=== PATIENT | female | born 1940 | race Caucasian/White ===

== ENCOUNTER → 2016-12-01 | Outpatient (CLI) | payer MEDICARE ==
[~2016-12-01] MED LIST: DOBUTamine DRIP for NUC MED 500 MG in DEXTROSE/WATER 1 250ML.BAG IV ONE
--- NOTE | 2016-12-01 12:08 | ECHOS ---
DATE OF SERVICE: 12/01/2016 DOBUTAMINE STRESS ECHOCARDIOGRAM INDICATION: Chest pain. BASELINE HEART RATE: 64 BASELINE BLOOD PRESSURE: 124/80 MAXIMUM HEART RATE: 127 MAXIMUM BLOOD PRESSURE: 111/73 85% MPHR: 126 100% MPHR: 155 METs: MAXIMUM STAGE REACHED: TOTAL EXERCISE TIME: Baseline EKG showed sinus rhythm, normal axis, normal intervals. Patient was given intravenous dobutamine over a period of 6 minutes as per protocol. Did not have chest pain or diagnostic ST segment depression. Baseline echo shows normal left ventricular size, wall motion, systolic function. Post dobutamine infusion. There is no hyperdynamic response of all segments of myocardium noted. CONCLUSIONS: 1. Negative stress test by EKG criteria. 2. Negative dobutamine echo. [facility]
== END | disposition home or self-care (01) ==
LOC: RADNMMAIN 09:53
PROVIDERS: ATTEND Internal Medicine
DX: R06.09 Other forms of dyspnea (principal)
CPT/HCPCS: 93017; 93350; J1250

== ENCOUNTER → 2017-01-09 | Outpatient (CLI) | payer MEDICARE ==
[~2017-01-09] MED LIST changes: -DOBUTamine DRIP for NUC MED 500 MG in DEXTROSE/WATER 1 250ML.BAG IV ONE; +SODIUM CHLORIDE 0.9% 250 ML in EMPTY BAG 1 BAG IV PRN; +SODIUM CHLORIDE 0.9% 500 ML in EMPTY BAG 1 BAG IV PRN; +ZOLEDRONIC ACID 5 MG in SODIUM CHLORIDE 0.9% 100 ML IV ONE
[2017-01-09 14:45] VITALS: BP 131/82; PULSE 79; RESP 16; TEMP 97.4
== END | disposition home or self-care (01) ==
LOC: PROCWHC3 14:27
PROVIDERS: ATTEND Internal Medicine
DX: M81.0 Age-related osteoporosis without current pathological fracture (principal)
CPT/HCPCS: 96365; J3489

== ENCOUNTER → 2017-06-12 | Outpatient (CLI) | payer MEDICARE ==
--- NOTE | 2017-06-12 14:03 | US ---
EXAMINATION TYPE: US kidneys/renal and bladder DATE OF EXAM: 06/12/2017 COMPARISON: NONE CLINICAL HISTORY: N13.30 Hydronephrosis, R93.4 Hx hydronephrosis. EXAM MEASUREMENTS: Right Kidney: 11.1 x 5.6 x 4.4 cm Left Kidney: 11.0 x 5.3 x 5.3 x 5.3 cm Right Kidney: mild hydronephrosis Left Kidney: mild hydronephrosis, cyst measuring 1.5 x 1.4 x 1.8cm Bladder: Patients bladder not full per instructions by Dr. Lal Bilateral Jets seen: No No nephrolithiasis is seen. No masses are identified. The urinary bladder is not appropriately dis tended this time. IMPRESSION: 1. Mild bilateral hydronephrosis of uncertain etiology. 2. Simple cyst left kidney.
== END | disposition home or self-care (01) ==
LOC: RADUSWWP 13:28
PROVIDERS: ATTEND Urology
DX: N13.30 Unspecified hydronephrosis (principal); N28.1 Cyst of kidney, acquired
CPT/HCPCS: 76770

== ENCOUNTER → 2017-08-06 | Outpatient (CLI) | payer MEDICARE ==
--- NOTE | 2017-08-08 08:49 | MM ---
Reason for exam: screening (asymptomatic). Last mammogram was performed 1 year and 3 months ago. History: Patient is postmenopausal. Family history of breast cancer in sister, breast cancer in father, and breast cancer in 2 paternal aunts. Physical Findings: A clinical breast exam by your physician is recommended on an annual basis and results should be correlated with mammographic findings. MG 3D Screening Mammo W/Cad Bilateral CC and MLO view(s) were taken. Prior study comparison: May 02, 2016, bilateral MG 3d screening mammo w/cad. March 29, 2015, mammogram, performed at [facility]. There are scattered fibroglandular densities. No significant changes when compared with prior studies. ASSESSMENT: Benign, BI-RAD 2 RECOMMENDATION: Routine screening mammogram of both breasts in 1 year.
== END | disposition home or self-care (01) ==
LOC: RADMAMWWP 13:50
PROVIDERS: ATTEND Internal Medicine
DX: Z12.31 Encounter for screening mammogram for malignant neoplasm of breast (principal)
CPT/HCPCS: 77063; 77067

== ENCOUNTER → 2017-12-28 | Outpatient (CLI) | payer MEDICARE ==
[2017-12-28 17:55] LABS: Blood Urea Nitrogen 19 mg/dL (7-17)
--- NOTE | 2017-12-30 15:33 | CT ---
EXAMINATION TYPE: CT abdomen pelvis w con DATE OF EXAM: 12/28/2017 COMPARISON: None INDICATION: abdominal pain DLP: 758.3 mGycm, Automated exposure control for dose reduction was used. CONTRAST: 100 mL of Isovue 300. Study performed with Oral Contrast TECHNIQUE: Axial images were obtained from above the diaphragm to the pubic rami in the axial plane a t 5 mm thick sections. Reconstructed images are reviewed on the computer in the coronal plane. FINDINGS: Limited CT sections are obtained the lung bases. Some paraseptal emphysematous changes present in th e posterior lung bases. Some streak opacities are at the lung bases may be some streak atelectasis.. CT ABDOMEN: Subcutaneous varicosities are present. Liver: Normal Spleen: Normal Pancreas: Normal Adrenal glands: The adrenal glands are normal. Gallbladder: Poorly visualized may be decompressed. Kidneys: No masses are evident. No hydronephrosis is present. Peripelvic cysts are present. Exophyt ic cyst on the posterior lateral left kidney measures 0 Hounsfield units and 1.7 cm. Delayed images were obtained through the kidneys, which remain unremarkable. Aorta: Vascular calcification is within the aorta. 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 Typical inferior vena cava is not identified. CT PELVIS: Loops of bowel within the abdomen and pelvis are normal. Multiple diverticuli are present through out the colon. No acute diverticulitis is evident. There are loops of bowel lacking oral contrast weaver iting their evaluation. Appendix: Normal as visualized. Urinary bladder: Normal. Genitourinary structures: Uterus appears normal. Adnexal regions are clear. Osseous structures: No suspicious lytic or sclerotic lesions. IMPRESSIONS: 1. Peripelvic cysts. Hydronephrosis is not identified. No hydroureter is evident. 2. Paraseptal emphysematous changes and atelectasis at the lung bases. 3. Diverticulosis without acute diverticulitis.
== END ==
LOC: RADCTMAIN 17:09
PROVIDERS: ATTEND Internal Medicine
DX: N94.89 Other specified conditions associated with female genital organs and menstrual cycle (principal); J43.9 Emphysema, unspecified; J98.11 Atelectasis; K57.30 Diverticulosis of large intestine without perforation or abscess without bleeding
CPT/HCPCS: 82565; 84520; 74177; 36415; Q9967

== ENCOUNTER → 2018-05-07 | Outpatient (CLI) | payer MEDICARE ==
[~2018-05-07] MED LIST changes: +DOBUTamine DRIP for NUC MED 500 MG in DEXTROSE/WATER 1 250ML.BAG IV ONE; -SODIUM CHLORIDE 0.9% 250 ML in EMPTY BAG 1 BAG IV PRN; -SODIUM CHLORIDE 0.9% 500 ML in EMPTY BAG 1 BAG IV PRN; -ZOLEDRONIC ACID 5 MG in SODIUM CHLORIDE 0.9% 100 ML IV ONE
--- NOTE | 2018-05-07 12:12 | ECHOF ---
Referral Reason:R94.31 Abnormal EKG MEASUREMENTS -------- HEIGHT: 137.2 cm WEIGHT: 78.9 kg BP: IVSd: 1.4 cm (0.6 - 1.1) LVIDd: 3.3 cm (3.9 - 5.3) LVPWd: 1.4 cm (0.6 - 1.1) IVSs: 1.6 cm LVIDs: 2.5 cm LVPWs: 1.6 cm LAESV Index (A-L): 36.35 ml/m Ao Diam: 3.1 cm (2.0 - 3.7) AV Cusp: 1.9 cm (1.5 - 2.6) LA Diam: 3.7 cm (2.7 - 3.8) MV EXCURSION: 10.412 mm (> 18.000) MV EF SLOPE: 35 mm/s (70 - 150) EPSS: 0.7 cm MV E Samson: 0.62 m/s MV DecT: 125 ms MV A Samson: 0.80 m/s MV E/A Ratio: 0.78 RAP: 5.00 mmHg RVSP: 16.85 mmHg FINDINGS -------- Sinus rhythm with extra systolic beats. This was a technically good study. The left ventricular size is normal. There is moderate concentric left ventricular hypertrophy. O verall left ventricular systolic function is normal with, an EF between 55 - 60 %. The right ventricle is normal in size and function. LA is moderately dilated 34-39 ml/m2 The right atrium is normal in size. Aortic valve is trileaflet and is mildly thickened. The mitral valve is normal. Mild mitral regurgitation is present. Mild tricuspid regurgitation present. Right ventricular systolic pressure is normal at < 35 mmHg. The right ventricular systolic pressure, as measured by Doppler, is 16.85mmHg. There is no pulmonic regurgitation present. The aortic root size is normal. IVC Not well visulized. There is no pericardial effusion. CONCLUSIONS -------- 1. Sinus rhythm with extra systolic beats. 2. This was a technically good study. 3. The left ventricular size is normal. 4. There is moderate concentric left ventricular hypertrophy. 5. Overall left ventricular systolic function is normal with, an EF between 55 - 60 %. 6. LA is moderately dilated 34-39 ml/m2 7. Aortic valve is trileaflet and is mildly thickened. 8. Mild mitral regurgitation is present. 9. Mild tricuspid regurgitation present. 10. Right ventricular systolic pressure is normal at < 35 mmHg. 11. There is no pulmonic regurgitation present. 12. The aortic root size is normal. 13. IVC Not well visulized. 14. There is no pericardial effusion. BIBLICAL LANGUAGES PROFESSOR: Inessa Gonzalez RDCS
--- NOTE | 2018-05-07 13:16 | ECHOS ---
STRESS ECHOCARDIOGRAM INDICATIONS: Abnormal EKG. BASELINE HEART RATE: 70 BASELINE BLOOD PRESSURE: 102/65 MAXIMUM HEART RATE: 137 MAXIMUM BLOOD PRESSURE: 132/57 85% MPHR: 122 100% MPHR: 144 MAXIMUM STAGE REACHED: I TOTAL EXERCISE TIME: 5:15 CLINICAL INFORMATION: Baseline rhythm is sinus mechanism, rate of 70, normal axis and intervals, poor R-wave progression, probable lead misplacement in V2. Baseline blood pressure 102/65 mmHg. Patient received infusion of dobutamine per protocol. Electrocardiograph monitoring revealed occasional PVCs. There was no evidence of diagnostic ischemic ST deviation. FINDINGS: Baseline echocardiogram revealed normal wall thickening and motion at peak exercise. There was normal wall motion augmentation with no hypokinesis or dyskinesis. CONCLUSION: 1. Nondiagnostic electrocardiograph response to dobutamine infusion. 2. Normal stress echocardiogram with no evidence of stress-induced ischemia. MMODL / IJN: [id number] /
== END | disposition home or self-care (01) ==
LOC: RADNMMAIN 10:02
PROVIDERS: ATTEND Internal Medicine
DX: I08.3 Combined rheumatic disorders of mitral, aortic and tricuspid valves (principal); R94.31 Abnormal electrocardiogram [ECG] [EKG]
CPT/HCPCS: 93306; 93351; J1250

== ENCOUNTER 2019-08-08 | Day surgery (SDC) | payer MEDICARE | END 2019-08-08 09:07 | disposition home or self-care (01) | CPT/HCPCS: 88305; 45380; 43239; J2001; J2704 ==

== ENCOUNTER → 2020-01-12 | Outpatient (CLI) | payer MEDICARE ==
--- NOTE | 2020-01-14 08:38 | MM ---
Reason for exam: screening (asymptomatic). Last mammogram was performed 1 year and 5 months ago. History: Patient is postmenopausal. Family history of breast cancer in sister, breast cancer in father, and breast cancer in 2 paternal aunts. Physical Findings: A clinical breast exam by your physician is recommended on an annual basis and results should be correlated with mammographic findings. MG 3D Screening Mammo W/Cad Bilateral CC and MLO view(s) were taken. Prior study comparison: August 22, 2018, bilateral MG 3d screening mammo w/cad. August 06, 2017, bilateral MG 3d screening mammo w/cad. The breast tissue is heterogeneously dense. This may lower the sensitivity of mammography. There are benign appearing round vascular calcifications bilaterally. No significant changes when compared with prior studies. ASSESSMENT: Benign, BI-RAD 2 RECOMMENDATION: Routine screening mammogram of both breasts in 1 year.
== END | disposition home or self-care (01) ==
LOC: RADMAMWWP 13:19
PROVIDERS: ATTEND Internal Medicine
DX: Z12.31 Encounter for screening mammogram for malignant neoplasm of breast (principal)
CPT/HCPCS: 77063; 77067

== ENCOUNTER → 2020-02-24 | Outpatient (CLI) | payer MEDICARE ==
[2020-02-24 19:31] LABS: African American GFR (CKD) >90 (>60 ml/min/1.73 sqM); Blood Urea Nitrogen 24 mg/dL (7-17); Non-African American GFR(CKD) 84 (>60 ml/min/1.73 sqM)
--- NOTE | 2020-02-24 21:21 | CT ---
EXAMINATION TYPE: CT chest w con DATE OF EXAM: 02/24/2020 COMPARISON: Chest x-ray October 12, 2013 HISTORY: Interstitial lung disease, Pt c/o SOB cough x3 weeks. Hx pulmonary fibrosis, copd CT DLP: 224.40 mGycm. Automated Exposure Control for Dose Reduction was Utilized. TECHNIQUE: CT scan of the thorax is performed following with IV Contrast, patient injected with 100 mL of Isovue 300. FINDINGS: LUNGS: Peripheral reticulation and fibrotic changes is present bilaterally with areas of honeycombing and scattered bulla/blebs. No suspicious noncalcified nodules or masses. No pleural effusion or pneu mothorax. There is 3 mm calcified nodule or granuloma right upper lobe axial image 20. No suspicious focal consolidation. MEDIASTINUM: There is marked cardiomegaly with enlarged right and left pulmonary arteries and moderat e left atrial dilatation along with moderate right ventricular dilatation. There is coronary artery c alcification which is noted marker for underlying coronary artery disease. No pericardial effusion. S omewhat small thyroid gland. There are prominent collateral vessels near diaphragmatic hiatus at leve l of distal esophagus noted. No suspicious greater than 1 cm thoracic lymph nodes. OTHER: Exaggerated thoracic kyphosis with moderate multilevel spurring. Some ossific fusion T10-T11 l evel. There are prominent parapelvic cysts bilaterally confirmed on [address] IMPRESSION: Moderate to advanced chronic pulmonary fibrotic changes bilaterally. No acute pulmonary p rocess. Cardiomegaly with underlying pulmonary artery hypertension.
== END | disposition home or self-care (01) ==
LOC: RADCTMAIN 18:26
PROVIDERS: ATTEND Internal Medicine
DX: I27.21 Secondary pulmonary arterial hypertension (principal); J84.10 Pulmonary fibrosis, unspecified; I51.7 Cardiomegaly; J84.9 Interstitial pulmonary disease, unspecified
CPT/HCPCS: 82565; 84520; 71260; 36415; Q9967

== ENCOUNTER → 2020-03-22 | Outpatient (CLI) | payer MEDICARE ==
--- NOTE | 2020-03-23 10:00 | ECHOF ---
Referral Reason:I51.7 Cardiomegaly MEASUREMENTS -------- HEIGHT: 162.6 cm WEIGHT: 73.9 kg BP: RVIDd: 4.3 cm (< 3.3) IVSd: 1.3 cm (0.6 - 1.1) LVIDd: 3.4 cm (3.9 - 5.3) LVPWd: 1.5 cm (0.6 - 1.1) IVSs: 1.7 cm LVIDs: 2.6 cm LVPWs: 1.7 cm LAESV Index (A-L): 25.52 ml/m Ao Diam: 3.6 cm (2.0 - 3.7) AV Cusp: 2.2 cm (1.5 - 2.6) MV EXCURSION: 14.577 mm (> 18.000) MV EF SLOPE: 47 mm/s (70 - 150) EPSS: 0.8 cm MV E Samson: 0.37 m/s MV DecT: 193 ms MV A Samson: 0.84 m/s MV E/A Ratio: 0.45 RAP: 5.00 mmHg RVSP: 25.01 mmHg FINDINGS -------- This was a technically adequate study. The left ventricular size is normal. There is mild concentric left ventricular hypertrophy. Overa ll left ventricular systolic function is mildly impaired with, an EF between 45 - 50 %. Mitral Dopp ler inflow pattern suggests diastolic filling abnormality 6.46. Possible Inferior Hypokinesis The right ventricle is moderate to severely enlarged. Normal LA size by volume 22+/-6 ml/m2. The right atrial size is normal. Interatrial and interventricular septum intact. The aortic valve is trileaflet and appears structurally normal. There is no evidence of aortic regu rgitation. There is no evidence of aortic stenosis. Mild mitral regurgitation is present. Mild tricuspid regurgitation present. There is no evidence of pulmonary hypertension. The right v entricular systolic pressure, as measured by Doppler, is 25.01mmHg. Trace/mild (physiologic) pulmonic regurgitation. The aortic root size is normal. IVC Not well visulized. There is no pericardial effusion. CONCLUSIONS -------- 1. The left ventricular size is normal. 2. There is mild concentric left ventricular hypertrophy. 3. Overall left ventricular systolic function is mildly impaired with, an EF between 45 - 50 %. 4. Mitral Doppler inflow pattern suggest diastolic filling abnormality 6.46. 5. The right ventricle is moderate to severely enlarged. 6. Mild mitral regurgitation is present. 7. Mild tricuspid regurgitation present. 8. Trace/mild (physiologic) pulmonic regurgitation. JEWEL SUPERVISOR: Joanna Santos RDCS
== END | disposition home or self-care (01) ==
LOC: RADECHMAIN 13:43
PROVIDERS: ATTEND Internal Medicine
DX: I08.1 Rheumatic disorders of both mitral and tricuspid valves (principal)
CPT/HCPCS: 93306

== ENCOUNTER → 2020-06-01 | Outpatient (CLI) | payer MEDICARE ==
[2020-06-01 15:27] LABS: Albumin 4.2 g/dL (3.80-4.90); Albumin/Globulin Ratio 2.21 (1.60-3.17); Bilirubin, Conjugated 0.3 mg/dL (0.20-0.40); Bilirubin,Unconjugated 0.5 mg/dL; Chol/HDL Ratio 2.55; Globulin 1.9 g/dL (1.6-3.3); LDL Cholesterol,Calculated 66.4 mg/dL (0.0-131.0); Total Bilirubin 0.8 mg/dL (0.2-1.2); Total Protein 6.1 g/dL (6.2-8.2); VLDL Calculation 15.6 mg/dL (5.00-40.00)
== END | disposition home or self-care (01) ==
LOC: LABWHC1 10:38
PROVIDERS: ATTEND Internal Medicine Cardiovascular Disease
DX: E78.2 Mixed hyperlipidemia (principal); I10 Essential (primary) hypertension
CPT/HCPCS: 36415; 80061; 80076

== ENCOUNTER → 2021-03-29 | Outpatient (CLI) | payer MEDICARE ==
--- NOTE | 2021-03-31 14:37 | MM ---
Reason for exam: screening (asymptomatic). Last mammogram was performed 1 year and 3 months ago. History: Patient is postmenopausal. Family history of breast cancer in sister, breast cancer in father, and breast cancer in 2 paternal aunts. Physical Findings: A clinical breast exam by your physician is recommended on an annual basis and results should be correlated with mammographic findings. MG 3D Screening Mammo W/Cad Bilateral CC and MLO view(s) were taken. XCCL view(s) were taken of the right breast. Prior study comparison: January 12, 2020, bilateral MG 3d screening mammo w/cad. August 22, 2018, bilateral MG 3d screening mammo w/cad. There are scattered fibroglandular densities. No significant changes when compared with prior studies. ASSESSMENT: Negative, BI-RAD 1 RECOMMENDATION: Routine screening mammogram of both breasts in 1 year.
== END | disposition home or self-care (01) ==
LOC: RADMAMWWP 12:58
PROVIDERS: ATTEND Family Medicine
DX: Z12.31 Encounter for screening mammogram for malignant neoplasm of breast (principal); Z80.3 Family history of malignant neoplasm of breast; Z78.0 Asymptomatic menopausal state
CPT/HCPCS: 77063; 77067

== ENCOUNTER 2021-04-30 12:12 | Emergency (ER) | payer MEDICARE ==
[2021-04-30 14:40] VITALS: RESP 16; TEMP 98.5
[2021-04-30 15:24] LABS: Appearance,Urine Cloudy (Clear); Bacteria,Urine Occasional /hpf; Bilirubin,Urine Negative (Negative); Blood,Urine Large (Negative); Color,Urine Dark Yellow; Glucose,Urine (UA) Negative (Negative); Ketones,Urine Negative (Negative); Leukocyte Esterase,Urine Large (Negative); Mucus,Urine Rare /hpf; Nitrite,Urine Negative (Negative); Protein,Urine 1+ (Negative); RBC,Urine >182 /hpf (0-5); Specific Gravity,Urine 1.018 (1.001-1.035); Urobilinogen,Urine <2.0 mg/dL (<2.0); WBC,Urine >182 /hpf (0-5)
--- NOTE | 2021-04-30 16:58 | ED ---
General Adult HPI - General Chief complaint: Urogenital Stated complaint: blood in urine Time Seen by Provider: 04/30/21 17:00 Source: patient, family, RN notes reviewed, old records reviewed Mode of arrival: wheelchair Limitations: no limitations - History of Present Illness Initial comments: Well-appearing 81-year-old female, alert and oriented 4, presents to the emergency room with dysuria that started last night. She states that she has had frequency, burning and then noticed some blood in the urine this morning. She denies any back pain, fever, nausea or vomiting. She has had a history of urinary tract infections in the past. She also has irritable bowel syndrome with diarrhea. She has a history of COPD, DVT and hypertension. She states that she was told she has diabetes but she is diet-controlled no medications. She is a former smoker. -: days(s) (1) Location: abdomen (Suprapubic) Severity scale (1-10): 4 Quality: burning Consistency: intermittent Improves with: none Worsens with: other (Urination) Associated Symptoms: denies other symptoms Treatments Prior to Arrival: none - Related Data Home Medications Medication Instructions Recorded Confirmed ALPRAZolam [Xanax] 0.25 mg PO HS PRN 10/12/13 08/05/19 Albuterol Sulfate [Ventolin HFA] 1 puff INHALATION QID 10/12/13 08/05/19 Isosorbide Mononitrate ER [Imdur] 30 mg PO DAILY 10/12/13 08/05/19 Levothyroxine Sodium [Synthroid] 75 mcg PO DAILY 10/12/13 08/05/19 hydroCHLOROthiazide [Hydrodiuril] 25 mg PO DAILY 10/12/13 08/05/19 Calcium Carbonate/Vitamin D3 800 mg PO BID 03/15/15 08/05/19 [Calcium 600-Vit D3 400 Tablet] Vitamin B Complex 1 each PO DAILY 03/15/15 08/05/19 Cholecalciferol (Vitamin D3) 2,800 unit PO DAILY 01/09/17 08/05/19 [Vitamin D3] Clopidogrel [Plavix] 75 mg PO DAILY 01/09/17 08/05/19 Clotrimazole [Clotrimazole 1%] 1 applic TOPICAL DAILY PRN 01/09/17 08/05/19 Ketoconazole [Ketoconazole 2%] 1 applic TOPICAL DIRECTED 01/09/17 08/05/19 Diphenoxylate HCl/Atropine 1 tab PO QID PRN 08/05/19 08/05/19 [Lomotil 2.5-0.025 mg Tablet] Fluticasone/Vilanterol [Breo 1 inhalation PO 1600 08/05/19 08/05/19 Ellipta 100-25 Mcg Inhaler] methylPREDNISolone [Medrol Dose 4 mg PO DIRECTED 08/05/19 08/05/19 Pack] Previous Rx's Medication Instructions Recorded Sulfamethox-Tmp 800-160Mg [Bactrim 1 each PO Q12HR 4 Days #8 tab 04/30/21 Ds] Allergies Allergy/AdvReac Type Severity Reaction Status Date / Time erythromycin base Allergy Intermediate Abdominal Verified 04/30/21 14:40 [Erythromycin Base] Pain denosumab [From Prolia] Allergy Rash/Hives Verified 04/30/21 14:40 Review of Systems ROS Statement: Those systems with pertinent positive or pertinent negative responses have been documented in the HPI. ROS Other: All systems not noted in ROS Statement are negative. 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 oophorectomy, right leg varicose vein surg. robbin cataract, exploratory surgery on chest area to remove a "lump", Past Anesthesia/Blood Transfusion Reactions: Family History of Problems w/ Anesthesia Additional Past Anesthesia/Blood Transfusion Reaction / Comment(s): claustrophobia, son had diff breathing during surgery at age 4(will bring paper in) Past Psychological History: Anxiety Smoking Status: Never smoker Past Alcohol Use History: Rare Past Drug Use History: None Reported - Past Family History Father Family Medical History: Deep Vein Thrombosis (DVT) Additional Family Medical History / Comment(s): FROM CORONARY THROMBOSIS Mother Family Medical History: Pneumonia, Rheumatoid Arthritis (RA) Additional Family Medical History / Comment(s): Peptic ulcer disease.PVD, HAITAL HERNIA, DIVERTICULITIS Sister(s) Family Medical History: Blood Disorder, Cancer, Deep Vein Thrombosis (DVT) Additional Family Medical History / Comment(s): Colon polyps. General Exam Limitations: no limitations General appearance: alert, in no apparent distress Head exam: Present: atraumatic, normocephalic, normal inspection Eye exam: Present: normal appearance, EOMI ENT exam: Present: normal exam, normal oropharynx, mucous membranes moist Neck exam: Present: normal inspection, full ROM. Absent: tenderness, meningismus, lymphadenopathy, thyromegaly Respiratory exam: Present: normal lung sounds bilaterally. Absent: respiratory distress, wheezes, rales, rhonchi, stridor Cardiovascular Exam: Present: regular rate, normal rhythm, normal heart sounds. Absent: systolic murmur, diastolic murmur, rubs, gallop, clicks GI/Abdominal exam: Present: soft, normal bowel sounds. Absent: distended, tenderness, guarding, rebound, rigid Back exam: Present: normal inspection, full ROM. Absent: tenderness, CVA tenderness (R), CVA tenderness (L), muscle spasm, paraspinal tenderness, vertebral tenderness, rash noted Neurological exam: Present: alert, oriented X3 Psychiatric exam: Present: normal affect, normal mood Skin exam: Present: warm, dry, intact, normal color. Absent: rash, cyanosis, diaphoretic Course Vital Signs 04/30/21 04/30/21 14:37 17:26 Temperature 98.5 F Pulse Rate 78 86 Respiratory 16 16 Rate Blood Pressure 142/79 120/72 O2 Sat by Pulse 96 99 Oximetry Medical Decision Making - Medical Decision Making This is a well-appearing 81-year-old female that presents to the emergency room with complaints of dysuria and frequency that started last night. She states that she's had urinary tract infections in the past. Denies any fevers or back pain, denies nausea or vomiting. Urinalysis shows cloudy urine with large leukocyte esterase and greater than 182 WBCs and occasional bacteria. She will be treated for urinary tract infection directed to follow up with her primary care doctor next week. She was given a dose of Diflucan and Bactrim in the emergency department along with starter pack of Bactrim. She was also directed to return to the emergency room with any new or worsening symptoms including fever or back pain, nausea or vomiting. Patient is agreeable to this plan of care. Case discussed with Dr. Calderón - Lab Data Lab Results 04/30/21 Range/Units 14:54 Urine Color Dark Yellow Urine Appearance Cloudy H (Clear) Urine pH 6.0 (5.0-8.0) Ur Specific [place] 1.018 (1.001-1.035) Urine Protein 1+ H (Negative) Urine Glucose (UA) Negative (Negative) Urine Ketones Negative (Negative) Urine Blood Large H (Negative) Urine Nitrite Negative (Negative) Urine Bilirubin Negative (Negative) Urine Urobilinogen <2.0 (<2.0) mg/dL Ur Leukocyte Esterase Large H (Negative) Urine RBC >182 H (0-5) /hpf Urine WBC >182 H (0-5) /hpf Urine WBC Clumps Few H (None) /hpf Urine Bacteria Occasional H (None) /hpf Urine Mucus Rare H (None) /hpf Disposition Clinical Impression: UTI (urinary tract infection) Disposition: HOME SELF-CARE Condition: Good Instructions (If sedation given, give patient instructions): Urinary Tract Infection in Women (ED) Additional Instructions: Take antibiotics as prescribed and follow-up with your primary care doctor next week. Return to the emergency room with any new or worsening symptoms including fever, back pain or nausea and vomiting. Prescriptions: Sulfamethox-Tmp 800-160Mg [Bactrim Ds] 1 each PO Q12HR 4 Days #8 tab Is patient prescribed a controlled substance at d/c from ED?: No Referrals: Jeannie Rodriguez MD [Primary Care Provider] - 1-2 days Time of Disposition: 17:16
[2021-04-30] MEDS ORDERED: SULFAMETHOX-TMP 800-160MG 1 EACH TAB PO STA (17:13)
[2021-04-30] MEDS ORDERED: FLUCONAZOLE 150 MG TAB PO STA (17:13)
[2021-04-30] MEDS ORDERED: SULFAMETH-TMP DS STARTER PACK 2 TAB BTL PO STA (17:16)
[2021-04-30 17:29] VITALS: BP 120/72; PULSE 86
== END 2021-04-30 17:28 | disposition home or self-care (01) ==
LOC: EC 12:12
DX: N39.0 Urinary tract infection, site not specified (principal); E11.9 Type 2 diabetes mellitus without complications; I10 Essential (primary) hypertension; J44.9 Chronic obstructive pulmonary disease, unspecified; K21.9 Gastro-esophageal reflux disease without esophagitis; M19.90 Unspecified osteoarthritis, unspecified site; F41.9 Anxiety disorder, unspecified; Z79.890 Hormone replacement therapy; Z79.02 Long term (current) use of antithrombotics/antiplatelets; Z79.899 Other long term (current) drug therapy; Z87.891 Personal history of nicotine dependence
CPT/HCPCS: 81001; 87077; 87086; 87186; 99283

== ENCOUNTER 2021-11-16 17:52 | Emergency (ER) | payer MEDICARE ==
[2021-11-16 19:37] LABS: Basophils % (A) 0 %; Eosinophils % (A) 0 %; HCT 43.9 % (34.0-46.0); HGB 14.6 gm/dL (11.4-16.0); Lymphocytes # (A) 0.3 k/uL (1.0-4.8); Lymphocytes % (A) 5 %; MCH 30.7 pg (25.0-35.0); MCHC 33.3 g/dL (31.0-37.0); Mean Platelet Volume 7.8; Monocytes # (A) 0.3 k/uL (0-1.0); Monocytes % (A) 4 %; Neutrophils # (A) 6.2 k/uL (1.3-7.7); Neutrophils % (A) 90 %; Platelet Count 310 k/uL (150-450); RBC 4.78 m/uL (3.80-5.40); RDW 13.2 % (11.5-15.5); WBC 6.9 k/uL (3.8-10.6)
[2021-11-16 19:54] LABS: ALT 16 U/L (4-34); AST 16 U/L (14-36); African American GFR (CKD) >90 (>60 ml/min/1.73 sqM); Albumin 3.8 g/dL (3.5-5.0); Alkaline Phosphatase 68 U/L (38-126); Anion Gap 9 mmol/L; Blood Urea Nitrogen 32 mg/dL (7-17); Calcium 8.6 mg/dL (8.4-10.2); Carbon Dioxide 25 mmol/L (22-30); Chloride 95 mmol/L (98-107); Glucose 306 mg/dL (74-99); Non-African American GFR(CKD) 79 (>60 ml/min/1.73 sqM); Potassium 3.8 mmol/L (3.5-5.1); Sodium 129 mmol/L (137-145); Total Bilirubin 0.3 mg/dL (0.2-1.3)
[2021-11-16 20:00] LABS: INR 0.9 (<1.2); Prothrombin Time 10.3 sec (9.0-12.0)
[2021-11-16 20:01] VITALS: TEMP 98
--- NOTE | 2021-11-16 20:20 | XR ---
EXAMINATION TYPE: XR chest 2V DATE OF EXAM: 11/16/2021 COMPARISON: 04/07/2020 HISTORY: Difficulty breathing TECHNIQUE: 2 views FINDINGS: There is coarse interstitial density throughout the lungs. No pleural effusion. There are n o hilar masses. No mediastinal adenopathy. Heart is borderline enlarged. Bony thorax is intact. IMPRESSION: Moderate pulmonary interstitial fibrosis. No change.
[2021-11-17] MEDS ORDERED: IPRATROPIUM-ALBUTEROL 3 ML NEB INHALATION STA (00:33)
--- NOTE | 2021-11-17 00:33 | ED ---
Recheck HPI - General Chief Complaint: Recheck/Abnormal Lab/Rx Stated Complaint: High Blood Sugar, ELHAM, PCP sent in Time Seen by Provider: 11/17/21 00:28 Source: patient, RN notes reviewed, old records reviewed Mode of arrival: wheelchair Limitations: no limitations - History of Present Illness Initial Comments: This is a 81-year-old female department for evaluation. Patient presents today for evaluation regards to elevated blood sugar elevated blood sugar in the setting of coronavirus on steroids. Patient does have concern for elevation of the blood sugar. Patient has no symptoms of feels well he drinking appropriately no shortness of breath MD Complaint: abnormal lab (Elevated blood sugar) -: days(s) Returns Today for: Called Because of Abnormal Lab/Test Symptoms Since Prior Visit: no new symptoms Context: planned re-check, called for abnormal lab result Associated Symptoms: none Treatments Prior to Arrival: other medications - Related Data Home Medications Medication Instructions Recorded Confirmed ALPRAZolam [Xanax] 0.25 mg PO HS PRN 10/12/13 08/05/19 Albuterol Sulfate [Ventolin HFA] 1 puff INHALATION QID 10/12/13 08/05/19 Isosorbide Mononitrate ER [Imdur] 30 mg PO DAILY 10/12/13 08/05/19 Levothyroxine Sodium [Synthroid] 75 mcg PO DAILY 10/12/13 08/05/19 hydroCHLOROthiazide [Hydrodiuril] 25 mg PO DAILY 10/12/13 08/05/19 Calcium Carbonate/Vitamin D3 800 mg PO BID 03/15/15 08/05/19 [Calcium 600-Vit D3 400 Tablet] Vitamin B Complex 1 each PO DAILY 03/15/15 08/05/19 Cholecalciferol (Vitamin D3) 2,800 unit PO DAILY 01/09/17 08/05/19 [Vitamin D3] Clopidogrel [Plavix] 75 mg PO DAILY 01/09/17 08/05/19 Clotrimazole [Clotrimazole 1%] 1 applic TOPICAL DAILY PRN 01/09/17 08/05/19 Ketoconazole [Ketoconazole 2%] 1 applic TOPICAL DIRECTED 01/09/17 08/05/19 Diphenoxylate HCl/Atropine 1 tab PO QID PRN 08/05/19 08/05/19 [Lomotil 2.5-0.025 mg Tablet] Fluticasone/Vilanterol [Breo 1 inhalation PO 1600 08/05/19 08/05/19 Ellipta 100-25 Mcg Inhaler] methylPREDNISolone [Medrol Dose 4 mg PO DIRECTED 08/05/19 08/05/19 Pack] Previous Rx's Medication Instructions Recorded Sulfamethox-Tmp 800-160Mg [Bactrim 1 each PO Q12HR 4 Days #8 tab 04/30/21 Ds] Allergies Allergy/AdvReac Type Severity Reaction Status Date / Time erythromycin base Allergy Intermediate Abdominal Verified 11/16/21 20:01 [Erythromycin Base] Pain denosumab [From Prolia] Allergy Rash/Hives Verified 11/16/21 20:01 Review of Systems ROS Statement: Those systems with pertinent positive or pertinent negative responses have been documented in the HPI. ROS Other: All systems not noted in ROS Statement are negative. 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 oophorectomy, right leg varicose vein surg. robbin cataract, exploratory surgery on chest area to remove a "lump", Past Anesthesia/Blood Transfusion Reactions: Family History of Problems w/ Anesthesia Additional Past Anesthesia/Blood Transfusion Reaction / Comment(s): claustrophobia, son had diff breathing during surgery at age 6(will bring paper in) Past Psychological History: Anxiety Smoking Status: Never smoker Past Alcohol Use History: Rare Past Drug Use History: None Reported - Past Family History Father Family Medical History: Deep Vein Thrombosis (DVT) Additional Family Medical History / Comment(s): FROM CORONARY THROMBOSIS Mother Family Medical History: Pneumonia, Rheumatoid Arthritis (RA) Additional Family Medical History / Comment(s): Peptic ulcer disease.PVD, HAITAL HERNIA, DIVERTICULITIS Sister(s) Family Medical History: Blood Disorder, Cancer, Deep Vein Thrombosis (DVT) Additional Family Medical History / Comment(s): Colon polyps. General Exam Limitations: no limitations General appearance: alert, in no apparent distress Head exam: Present: atraumatic, normocephalic, normal inspection Eye exam: Present: normal appearance, PERRL, EOMI. Absent: scleral icterus, conjunctival injection, periorbital swelling ENT exam: Present: normal exam, mucous membranes moist Neck exam: Present: normal inspection. Absent: tenderness, meningismus, lymphadenopathy Respiratory exam: Present: normal lung sounds bilaterally. Absent: respiratory distress, wheezes, rales, rhonchi, stridor Cardiovascular Exam: Present: regular rate, normal rhythm, normal heart sounds. Absent: systolic murmur, diastolic murmur, rubs, gallop, clicks GI/Abdominal exam: Present: soft, normal bowel sounds. Absent: distended, tenderness, guarding, rebound, rigid Extremities exam: Present: normal inspection, full ROM, normal capillary refill. Absent: tenderness, pedal edema, joint swelling, calf tenderness Back exam: Present: normal inspection Neurological exam: Present: alert, oriented X3, CN II-XII intact Psychiatric exam: Present: normal affect, normal mood Skin exam: Present: warm, dry, intact, normal color. Absent: rash Course Vital Signs 11/16/21 11/17/21 11/17/21 19:56 01:12 01:20 Temperature 98 F Pulse Rate 67 52 L 56 L Respiratory 18 Rate Blood Pressure 139/83 O2 Sat by Pulse 97 Oximetry 11/17/21 11/17/21 11/17/21 01:21 01:34 03:22 Temperature Pulse Rate 56 L 60 77 Respiratory 16 Rate Blood Pressure 140/77 O2 Sat by Pulse Oximetry - Reevaluation(s) Reevaluation #1: 11/17/21 Medical record is reviewed Reevaluation #2: 11/17/21 Patient family informed results and questions are answered Reevaluation #3: 11/17/21 Patient is no acute distress feels well and is okay for discharge Medical Decision Making - Medical Decision Making 81 female to the emergency department with coronavirus on steroids with elevated blood sugar. Patient is in no acute distress here in the urine can be discharged home - Lab Data Result diagrams: 11/16/21 19:29 11/16/21 19:27 Lab Results 11/16/21 11/16/21 11/16/21 Range/Units 19:27 19:29 19:29 WBC 6.9 (3.8-10.6) k/uL RBC 4.78 (3.80-5.40) m/uL Hgb 14.6 (11.4-16.0) gm/dL Hct 43.9 (34.0-46.0) % MCV 92.0 (80.0-100.0) fL MCH 30.7 (25.0-35.0) pg MCHC 33.3 (31.0-37.0) g/dL RDW 13.2 (11.5-15.5) % Plt Count 310 (150-450) k/uL MPV 7.8 Neutrophils % 90 % Lymphocytes % 5 % Monocytes % 4 % Eosinophils % 0 % Basophils % 0 % Neutrophils # 6.2 (1.3-7.7) k/uL Lymphocytes # 0.3 L (1.0-4.8) k/uL Monocytes # 0.3 (0-1.0) k/uL Eosinophils # 0.0 (0-0.7) k/uL Basophils # 0.0 (0-0.2) k/uL PT 10.3 (9.0-12.0) sec INR 0.9 (<1.2) APTT 21.0 L (22.0-30.0) sec Sodium 129 L (137-145) mmol/L Potassium 3.8 (3.5-5.1) mmol/L Chloride 95 L (98-107) mmol/L Carbon Dioxide 25 (22-30) mmol/L Anion Gap 9 mmol/L BUN 32 H (7-17) mg/dL Creatinine 0.73 (0.52-1.04) mg/dL Est GFR (CKD-EPI)AfAm >90 (>60 ml/min/1.73 sqM) Est GFR (CKD-EPI)NonAf 79 (>60 ml/min/1.73 sqM) Glucose 306 H (74-99) mg/dL Lactic Ac Sepsis Rflx Plasma Lactic Acid Maynor (0.7-2.0) mmol/L Calcium 8.6 (8.4-10.2) mg/dL Magnesium (1.6-2.3) mg/dL Total Bilirubin 0.3 (0.2-1.3) mg/dL AST 16 (14-36) U/L ALT 16 (4-34) U/L Alkaline Phosphatase 68 (38-126) U/L Lactate Dehydrogenase (313-618) U/L Troponin I (0.000-0.034) ng/mL C-Reactive Protein (<1.0) mg/dL Total Protein 6.0 L (6.3-8.2) g/dL Albumin 3.8 (3.5-5.0) g/dL Acetone, Qual Negative (Negative) 11/16/21 11/16/21 11/16/21 Range/Units 19:29 19:29 19:56 WBC (3.8-10.6) k/uL RBC (3.80-5.40) m/uL Hgb (11.4-16.0) gm/dL Hct (34.0-46.0) % MCV (80.0-100.0) fL MCH (25.0-35.0) pg MCHC (31.0-37.0) g/dL RDW (11.5-15.5) % Plt Count (150-450) k/uL MPV Neutrophils % % Lymphocytes % % Monocytes % % Eosinophils % % Basophils % % Neutrophils # (1.3-7.7) k/uL Lymphocytes # (1.0-4.8) k/uL Monocytes # (0-1.0) k/uL Eosinophils # (0-0.7) k/uL Basophils # (0-0.2) k/uL PT (9.0-12.0) sec INR (<1.2) APTT (22.0-30.0) sec Sodium (137-145) mmol/L Potassium (3.5-5.1) mmol/L Chloride (98-107) mmol/L Carbon Dioxide (22-30) mmol/L Anion Gap mmol/L BUN (7-17) mg/dL Creatinine (0.52-1.04) mg/dL Est GFR (CKD-EPI)AfAm (>60 ml/min/1.73 sqM) Est GFR (CKD-EPI)NonAf (>60 ml/min/1.73 sqM) Glucose (74-99) mg/dL Lactic Ac Sepsis Rflx Y Plasma Lactic Acid Maynor 2.3 H* (0.7-2.0) mmol/L Calcium (8.4-10.2) mg/dL Magnesium (1.6-2.3) mg/dL Total Bilirubin (0.2-1.3) mg/dL AST (14-36) U/L ALT (4-34) U/L Alkaline Phosphatase (38-126) U/L Lactate Dehydrogenase (313-618) U/L Troponin I <0.012 (0.000-0.034) ng/mL C-Reactive Protein (<1.0) mg/dL Total Protein (6.3-8.2) g/dL Albumin (3.5-5.0) g/dL Acetone, Qual (Negative) 11/17/21 Range/Units 01:30 WBC (3.8-10.6) k/uL RBC (3.80-5.40) m/uL Hgb (11.4-16.0) gm/dL Hct (34.0-46.0) % MCV (80.0-100.0) fL MCH (25.0-35.0) pg MCHC (31.0-37.0) g/dL RDW (11.5-15.5) % Plt Count (150-450) k/uL MPV Neutrophils % % Lymphocytes % % Monocytes % % Eosinophils % % Basophils % % Neutrophils # (1.3-7.7) k/uL Lymphocytes # (1.0-4.8) k/uL Monocytes # (0-1.0) k/uL Eosinophils # (0-0.7) k/uL Basophils # (0-0.2) k/uL PT (9.0-12.0) sec INR (<1.2) APTT (22.0-30.0) sec Sodium (137-145) mmol/L Potassium (3.5-5.1) mmol/L Chloride (98-107) mmol/L Carbon Dioxide (22-30) mmol/L Anion Gap mmol/L BUN (7-17) mg/dL Creatinine (0.52-1.04) mg/dL Est GFR (CKD-EPI)AfAm (>60 ml/min/1.73 sqM) Est GFR (CKD-EPI)NonAf (>60 ml/min/1.73 sqM) Glucose (74-99) mg/dL Lactic Ac Sepsis Rflx Plasma Lactic Acid Maynor (0.7-2.0) mmol/L Calcium (8.4-10.2) mg/dL Magnesium 1.9 (1.6-2.3) mg/dL Total Bilirubin (0.2-1.3) mg/dL AST (14-36) U/L ALT (4-34) U/L Alkaline Phosphatase (38-126) U/L Lactate Dehydrogenase 355 (313-618) U/L Troponin I (0.000-0.034) ng/mL C-Reactive Protein 0.9 (<1.0) mg/dL Total Protein (6.3-8.2) g/dL Albumin (3.5-5.0) g/dL Acetone, Qual (Negative) - EKG Data -: EKG Interpreted by Me (EKG is sinus rhythm 66 AR 134 QRS 93 QTC 420 T-wave inversions) - Radiology Data Radiology results: report reviewed (Chest x-rays negative for acute disease), image reviewed Disposition Clinical Impression: Coronavirus infection Disposition: HOME SELF-CARE Condition: Good Instructions (If sedation given, give patient instructions): Coronavirus Disease 2019 (COVID-19) Is patient prescribed a controlled substance at d/c from ED?: No Referrals: Jeannie Rodriguez MD [Primary Care Provider] - 1-2 days Time of Disposition: 03:00
[2021-11-17] MEDS ORDERED: DEXAMETHASONE SOD PHOSPHATE 10 MG/ML 1 ML VIAL IVP STA (00:45)
[2021-11-17 02:15] LABS: C Reactive Protein 0.9 mg/dL (<1.0); Magnesium 1.9 mg/dL (1.6-2.3)
[2021-11-17 03:24] VITALS: BP 140/77; PULSE 77; RESP 16
[2021-11-17] MEDS ORDERED: DEXAMETHASONE SOD PHOSPHATE 10 MG/ML 1 ML VIAL IVP SCH (09:00)
== END 2021-11-17 02:30 | disposition home or self-care (01) ==
LOC: EC 17:52
DX: U07.1 COVID-19 (principal); E11.9 Type 2 diabetes mellitus without complications; I10 Essential (primary) hypertension; K21.9 Gastro-esophageal reflux disease without esophagitis; J45.909 Unspecified asthma, uncomplicated; Z79.83 Long term (current) use of bisphosphonates; Z88.1 Allergy status to other antibiotic agents; Z88.8 Allergy status to other drugs, medicaments and biological substances
CPT/HCPCS: 36415 ×2; 94640 ×2; 93005; 80053; 82009; 83605; 83615; 83735; 84484; 85025; 85610; 85730; 86140; 71046; 99284; 96374; J1100

== ENCOUNTER → 2022-10-31 | Outpatient (CLI) | payer MEDICARE ==
--- NOTE | 2022-11-01 09:31 | CT ---
EXAMINATION TYPE: CT chest wo con DATE OF EXAM: 10/31/2022 COMPARISON: 02/24/2020 HISTORY: Pulmonary fibrosis CT DLP: 483.4 mGycm. Automated Exposure Control for Dose Reduction was Utilized. TECHNIQUE: CT scan of the thorax is performed without IV contrast. FINDINGS: LUNGS: Peripheral reticulation and fibrotic changes is present bilaterally with areas of honeycombing and scattered bulla/blebs. No suspicious noncalcified nodules or masses. No pleural effusion or pneu mothorax. There is 3 mm calcified nodule or granuloma right upper lobe stable. There is a 4 mm left lower lobe nodule axial image 3 small characterize. The 2 to 3 mm left lower lobe calcified granuloma. No suspicious focal consolidation. There is mild t o moderate basilar bronchiectasis. MEDIASTINUM: Lack of IV contrast is noted to limit evaluation for mediastinal and especially hilar ad enopathy. There is marked cardiomegaly with enlarged right and left pulmonary arteries and moderate l eft atrial dilatation along with moderate right ventricular dilatation. There is coronary artery calc ification which is noted marker for underlying coronary artery disease. No pericardial effusion. Some what small thyroid gland. There are prominent collateral vessels near diaphragmatic hiatus at level o f distal esophagus noted. No suspicious greater than 1 cm thoracic lymph nodes. OTHER: Multilevel hypertrophic and degenerative disc disease. Some ossific fusion T10-T11 level. Ther e are prominent parapelvic cysts stable. IMPRESSION: 1. Advanced interstitial pulmonary fibrosis UIP type similar to prior exam
== END | disposition home or self-care (01) ==
LOC: RADCTMAIN 18:09
PROVIDERS: ATTEND Internal Medicine
DX: J84.112 Idiopathic pulmonary fibrosis (principal)
CPT/HCPCS: 71250

== ENCOUNTER 2022-11-03 11:08 | Day surgery (SDC) | payer MEDICARE ==
[2022-11-02 10:56] VITALS: BMI 25.0
[~2022-11-03 11:08] MED LIST changes: -DOBUTamine DRIP for NUC MED 500 MG in DEXTROSE/WATER 1 250ML.BAG IV ONE; +LACTATED RINGERS 1,000 ML IV SCH; +LIDOCAINE 1% (10MG/ML) FOR IV START INTRADERMA PRN
[2022-11-03 12:06] LABS: Glucose,Whole Blood 139 mg/dL (70-110)
[2022-11-03] MEDS ORDERED: PROPOFOL 10 MG/ML 20 ML VIAL IV ONE (12:24)
[2022-11-03] MEDS ORDERED: fentaNYL (PF) 50 MCG/ML 2 ML AMP ONE (12:24)
[2022-11-03] MEDS ORDERED: MIDAZOLAM 2 MG/2 ML VIAL ONE (12:24)
[2022-11-03] MEDS ORDERED: LIDOCAINE 2% INJ 20 MG/ML (2 ML VIAL) ONE (12:24)
[2022-11-03 13:10] VITALS: TEMP 97.6
--- NOTE | 2022-11-03 13:40 | FL ---
Intraoperative/procedural fluoroscopic services were provided. Total fluoroscopy time is 1 minute 14 seconds with a total of 1 submitted images to PACS. Please see the operative/procedural note for furt her details. DAP: 3.1686 Gycm2
--- NOTE | 2022-11-03 13:43 | XR ---
EXAMINATION TYPE: XR chest 1V portable DATE OF EXAM: 11/03/2022 1:31 PM COMPARISON: Chest radiographs from 11/16/2021 TECHNIQUE: XR chest 1V portable Frontal view of the chest. CLINICAL INDICATION:Female, 82 years old with history of post bronch/bx,transbronchial; FINDINGS: Lungs/Pleura: Prominent interstitial lung markings are seen scattered throughout the lungs. No eviden ce of focal consolidation, pneumothorax. There is blunting of the costophrenic angles. Pulmonary vascularity: Unremarkable. Heart/mediastinum: Cardiomediastinal silhouette is unremarkable. Musculoskeletal: No acute osseous pathology. IMPRESSION: 1. No evidence for pneumothorax. 2. Chronic changes without acute pulmonary process. No significant change from prior.
--- NOTE | 2022-11-03 13:47 | OP ---
OPERATIVE REPORT DATE OF SERVICE : PROCEDURES PERFORMED: Bronchoscopy, random bronchoalveolar lavage of different lobes. Multiple transbronchial biopsies of the left lower lobe using fluoroscopy as guidance. PREOPERATIVE DIAGNOSIS: Interstitial lung disease with chronic cough. POSTOPERATIVE DIAGNOSIS: Interstitial lung disease with chronic cough. ANESTHESIA USED: The patient was given general anesthetic, please refer to [employer] notes. DESCRIPTION OF PROCEDURE: The patient was brought into the bronchoscopy suite, she was placed in the supine position, she was intubated by [facility] [facility], and placed on mechanical ventilation. Then, the patient was monitored using pulse oximetry continuously, cardiac rhythm was continuously monitored, blood pressure was intermittently monitored. The bronchoscope was advanced through the endotracheal tube down to the area of the distal trachea, examination was done including go, which was noted to be normal. The right upper lobe, right middle lobe, right lower lobe, left upper lobe lingula, and left lower lobe. The different lobes were noted to be loaded with purulent secretions, then lavage was done of the different lobes, and the fluid was sent for different diagnostic studies. Then, using fluoroscopy as a guidance, multiple transbronchial biopsies were done from the left lower lobe. These biopsies were sent to pathology. The procedure was well tolerated, no complications, and there was 0 blood loss. Family was updated on the condition, and follow-up chest x-ray was ordered. MMODL / IJN: [id number] /
[2022-11-03 13:54] VITALS: BP 135/75; PULSE 61; RESP 16
[2022-11-04 18:42] LABS: Appearance,BF Cloudy
== END 2022-11-03 14:24 | disposition home or self-care (01) ==
LOC: ORWHC2ENDO 11:08
PROVIDERS: ATTEND Internal Medicine
DX: J84.9 Interstitial pulmonary disease, unspecified (principal); J44.9 Chronic obstructive pulmonary disease, unspecified; E11.9 Type 2 diabetes mellitus without complications; E03.9 Hypothyroidism, unspecified; F41.9 Anxiety disorder, unspecified; K21.9 Gastro-esophageal reflux disease without esophagitis; Z79.890 Hormone replacement therapy; Z79.899 Other long term (current) drug therapy; Z79.4 Long term (current) use of insulin
CPT/HCPCS: 87798 ×3; 87498; 87529; 88108; 88305; 89050; 87252; 87502; 87634; 87070; 87205; 87116; 87102; 87206; 71045; 31628; 31624; J2250; J3010; J2704; J2001; 31622; 31625

== ENCOUNTER → 2023-10-04 | Outpatient (CLI) | payer MEDICARE ==
--- NOTE | 2023-10-04 14:05 | XR ---
EXAMINATION TYPE: XR shoulder complete LT DATE OF EXAM: 10/04/2023 COMPARISON: Chest x-ray 07/16/2023 HISTORY: Pain TECHNIQUE: Three views are submitted. FINDINGS: The osseous structures are intact. There is no acute fracture or dislocation. Diffuse osteopenia wit h AC joint arthropathy. There is left-sided consolidation. Suspect underlying COPD and chronic pulmon robert fibrosis. IMPRESSION: 1. Moderate AC joint arthropathy. 2. Diffuse demineralization. 3. Diffuse airspace disease in the lung represent a combination of chronic interstitial pulmonary fib rosis and COPD. Consolidation at the left lung base could represent atelectasis or pneumonia. Similar to prior chest x-ray.
== END | disposition home or self-care (01) ==
LOC: RADXRMAIN 13:06
PROVIDERS: ATTEND Family Medicine
DX: M19.012 Primary osteoarthritis, left shoulder (principal); J44.9 Chronic obstructive pulmonary disease, unspecified; J84.10 Pulmonary fibrosis, unspecified

== ENCOUNTER → 2023-11-19 | Outpatient (CLI) | payer MEDICARE ==
--- NOTE | 2023-11-19 11:21 | US ---
EXAMINATION TYPE: US abdomen complete DATE OF EXAM: 11/19/2023 COMPARISON: CLINICAL INDICATION: Female, 83 years old with history of R10.9 UNSPECIFIED ABDOMINAL PAIN; Generaliz ed pain. GB removed. Hx peripelvic cysts. TECHNIQUE: Multiple sonographic images of the abdomen are obtained. FINDINGS: EXAM MEASUREMENTS: Liver Length: 15.5 cm CBD: 1.0 cm Spleen: 9.1 cm Right Kidney: 10.1 x 4.9 x 4.1 cm Left Kidney: 10.6 x 4.7 x 6.0 cm Pancreas: Obscured by bowel gas Liver: wnl Gallbladder: Surgically absent Evidence for sonographic Handley's sign: neg CBD: wnl Spleen: wnl Right Kidney: Peripelvic cysts seen Left Kidney: Peripelvic cysts seen. Lateral inferior cystic appearing lesion = 2.6 x 2.5 x 2.2 cm Upper IVC: wnl Abd Aorta: Proximal and mid obscured by overlying bowel gas. The liver is homogenous. The intrahepatic portion of the IVC and proximal abdominal aorta are within normal limits. There is no evidence of cholelithiasis. Common bile duct is unremarkable. The visu alized portions of the pancreas are homogenous. The spleen is unremarkable. Kidneys are symmetric a nd free of hydronephrosis. No renal lesions are seen. IMPRESSION: 1. No evidence for acute process. 2. Bilateral peripelvic cysts. 3. 3. Left simple appearing renal cysts.
--- NOTE | 2023-11-19 11:24 | US ---
EXAMINATION TYPE: US pelvic complete DATE OF EXAM: 11/19/2023 COMPARISON: 05/16/2017. CLINICAL INDICATION: Female, 83 years old with history of R10.9 UNSPECIFIED ABDOMINAL PAIN; Bilateral ovaries surgically removed. Generalized pain. TECHNIQUE: Transabdominal (TA). Transabdominal sonographic images of the pelvis were acquired. Date of LMP: [employer], EXAM MEASUREMENTS: Uterus: 6.5 x 4.0 x 2.4 cm Endometrial Stripe: 0.2 cm 1. Uterus: Anteverted Peripheral calcifications seen in myometrium 2. Endometrium: wnl as visualized 3. Right Ovary: Surgically absent 4. Left Ovary: Surgically absent 5. Bilateral Adnexa: no free fluid 6. Posterior cul-de-sac: no free fluid IMPRESSION: 1. No evidence for acute process. 2. Endometrium within normal limits for thickness.
== END | disposition home or self-care (01) ==
LOC: RADUSWWP 08:35
PROVIDERS: ATTEND Internal Medicine Gastroenterology
DX: N28.1 Cyst of kidney, acquired (principal)
CPT/HCPCS: 76700; 76856

== ENCOUNTER → 2024-01-18 | Outpatient (CLI) | payer MEDICARE | END | disposition home or self-care (01) | LOC: LABWHC1 15:33 | DX: Z53.9 Procedure and treatment not carried out, unspecified reason (principal) ==

== ENCOUNTER 2024-09-03 09:01 | Inpatient (IN) | payer MEDICARE ==
[2024-09-03 09:31] LABS: Basophils # (A) 0.06 10*3/uL (0.00-0.10); Basophils % (A) 0.6 %; HCT 37.9 % (37.2-46.3); HGB 12.9 g/dL (12.0-15.0); Lymphocytes # (A) 1.07 10*3/uL (0.90-5.00); Lymphocytes % (A) 10.9 %; MCH 31.9 pg (27.0-32.0); MCV 93.8 fL (80.0-97.0); Mean Platelet Volume 9.6 fL (9.5-12.2); Monocytes # (A) 0.59 10*3/uL (0.20-1.00); Neutrophils # (A) 7.97 10*3/uL (1.80-7.70); Neutrophils % (A) 81.6 %; Platelet Count 218 10*3/uL (140-440); RBC 4.04 10*6/uL (4.10-5.20); RDW 14.7 % (11.5-14.5); WBC 9.78 10*3/uL (4.50-10.00)
[2024-09-03 09:47] LABS: INR 1.1 (<1.2); Prothrombin Time 11.8 sec (10.0-12.5)
--- NOTE | 2024-09-03 09:53 | XR ---
EXAMINATION TYPE: XR chest 2V DATE OF EXAM: 09/03/2024 9:48 AM COMPARISON: 11/03/2022 CLINICAL INDICATION: Female, 84 years old with history of difficulty breathing, short of breath dyspn ea TECHNIQUE: XR chest 2V view(s) obtained. FINDINGS: The heart size is enlarged. The pulmonary vasculature is prominent. Diffuse increased lung markings are present likely on the basis of pulmonary edema. IMPRESSION: 1. Clinical correlation for congestive heart failure. Follow-up is recommended [facility], , 09/03/2024 9:50 AM
[2024-09-03 10:01] LABS: Appearance,Urine Clear (Clear); Bilirubin,Urine Negative (Negative); Blood,Urine Trace (Negative); Color,Urine Colorless; Glucose,Urine (UA) Negative (Negative); Ketones,Urine Negative (Negative); Leukocyte Esterase,Urine Negative (Negative); Mucus,Urine Rare /hpf; Nitrite,Urine Negative (Negative); PH, Urine 5.5 (5.0-8.0); Protein,Urine Negative (Negative); RBC,Urine 1 /hpf (0-5); Specific Gravity,Urine 1.008 (1.001-1.035); Urobilinogen,Urine <2.0 mg/dL (<2.0); WBC,Urine <1 /hpf (0-5)
[2024-09-03 10:02] LABS: Potassium 3.5 mmol/L (3.5-5.1)
[2024-09-03 10:03] LABS: ALT 13 U/L (4-34); AST 20 U/L (14-36); African American GFR (CKD) >90 (>60 ml/min/1.73 sqM); Albumin 3.7 g/dL (3.5-5.0); Alkaline Phosphatase 55 U/L (38-126); Anion Gap 9 mmol/L; Blood Urea Nitrogen 15 mg/dL (7-17); Calcium 9.3 mg/dL (8.4-10.2); Carbon Dioxide 24 mmol/L (22-30); Chloride 102 mmol/L (98-107); Glucose 159 mg/dL (74-99); Magnesium 1.2 mg/dL (1.6-2.3); Non-African American GFR(CKD) 89 (>60 ml/min/1.73 sqM); Sodium 135 mmol/L (137-145); Total Bilirubin 0.6 mg/dL (0.2-1.3); Total Protein 6.2 g/dL (6.3-8.2)
[2024-09-03 10:06] LABS: Influenza A Not Detected (Not Detectd); Influenza B Not Detected (Not Detectd); RSV Not Detected (Not Detectd)
[2024-09-03 10:09] LABS: NT-Pro-B-Type Natriuretic Pept 1450 pg/mL
[2024-09-03] MEDS ORDERED: Magnesium Replacement Protocol 1 EACH MISC MISCELLANE PRN (10:09)
--- NOTE | 2024-09-03 10:17 | ED ---
SOB HPI - General Chief Complaint: Shortness of Breath Stated Complaint: SOB Time Seen by Provider: 09/03/24 09:02 Source: patient, EMS, RN notes reviewed Mode of arrival: EMS Limitations: no limitations - History of Present Illness Initial Comments: This is an 84-year-old female who presents to the emergency department for shortness of breath and diarrhea. Patient has had increasing shortness of breath over the last week. Currently follows with Dr. Kirkland, pulmonology, for pulmonary fibrosis. States that he started her on Levaquin and prednisone a week ago. She does take prednisone daily at baseline, but had her dose increased. However, states that she continues to get worse. She has also had diarrhea for the last several days and feels very weak and shaky. She does typically wear 2 L of oxygen at home but has had to increase it to 3 L due to the increasing shortness of breath. She does report swelling in her lower extremities. She had been on Lasix, but was taken off of this for several days due to the diarrhea. Denies a history of CHF. MD Complaint: shortness of breath, cough - Related Data Home Medications Medication Instructions Recorded Confirmed ALPRAZolam [Xanax] 0.25 mg PO DAILY 10/12/13 09/03/24 Albuterol Sulfate [Ventolin HFA] 2 puff INHALATION RT-Q4H PRN 10/12/13 09/03/24 Levothyroxine Sodium [Synthroid] 75 mcg PO DAILY 10/12/13 09/03/24 Clopidogrel [Plavix] 75 mg PO DAILY 01/09/17 09/03/24 Diphenoxylate HCl/Atropine 2 tab PO DAILY 08/05/19 09/03/24 [Lomotil 2.5-0.025 mg Tablet] Albuterol Nebulized [Ventolin 2.5 mg INHALATION RT-Q6H PRN 11/02/22 09/03/24 Nebulized] Latanoprost [Latanoprost 0.005%] 1 drop RIGHT EYE HS 11/02/22 09/03/24 Metoprolol Succinate (ER) [Toprol 25 mg PO DAILY 11/02/22 09/03/24 Xl] Pantoprazole Sodium 40 mg PO DAILY 11/02/22 09/03/24 predniSONE See Taper PO DAILY 11/02/22 09/03/24 Calcium Carb-Vit D 250Mg-125Un 1 tab PO DAILY 09/03/24 09/03/24 [Oscal 250+D 3.125 Mcg (125 Iu)] Cholestyramine (with Sugar) 4 gm PO DAILY 09/03/24 09/03/24 [Cholestyramine Powder] Diphenoxylate HCl/Atropine 1 tab PO HS PRN 09/03/24 09/03/24 [Diphenoxylate HCl/Atropine 2.5-0.025] Diphenoxylate HCl/Atropine 1 tab PO W/SUPPER 09/03/24 09/03/24 [Lomotil 2.5-0.025 mg Tablet] Allergies Allergy/AdvReac Type Severity Reaction Status Date / Time erythromycin base Allergy Intermediate Abdominal Verified 09/03/24 10:46 [Erythromycin Base] Pain denosumab [From Prolia] Allergy Rash/Hives Verified 09/03/24 10:46 Review of Systems ROS Statement: Those systems with pertinent positive or pertinent negative responses have been documented in the HPI. ROS Other: All systems not noted in ROS Statement are negative. 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 oophorectomy, right leg varicose vein surg. robbin cataract, exploratory surgery on chest area to remove a "lump", Past Anesthesia/Blood Transfusion Reactions: No Reported Reaction, Family History of Problems w/ Anesthesia Additional Past Anesthesia/Blood Transfusion Reaction / Comment(s): claustrophobia, son had diff breathing during surgery at age 6,. no problems with prior blood transfusion Past Psychological History: Anxiety Smoking Status: Former smoker - Past Family History Father Family Medical History: Deep Vein Thrombosis (DVT) Additional Family Medical History / Comment(s): FROM CORONARY THROMBOSIS Mother Family Medical History: Pneumonia, Rheumatoid Arthritis (RA) Additional Family Medical History / Comment(s): Peptic ulcer disease.PVD, HAITAL HERNIA, DIVERTICULITIS Sister(s) Family Medical History: Blood Disorder, Cancer, Deep Vein Thrombosis (DVT) Additional Family Medical History / Comment(s): Colon polyps. General Exam Limitations: no limitations General appearance: alert, in no apparent distress Head exam: Present: atraumatic, normocephalic, normal inspection Respiratory exam: Present: decreased breath sounds, prolonged expiratory Cardiovascular Exam: Present: regular rate, normal rhythm Neurological exam: Present: alert, oriented X3, CN II-XII intact Psychiatric exam: Present: normal affect, normal mood Skin exam: Present: warm, dry, intact, normal color. Absent: rash Course Vital Signs 09/03/24 09/03/24 09/03/24 09:02 10:31 10:43 Temperature 97.1 F L Pulse Rate 79 69 70 Respiratory 18 Rate Blood Pressure 148/80 O2 Sat by Pulse 97 Oximetry 09/03/24 09/03/24 09/03/24 11:00 13:00 14:49 Temperature Pulse Rate 72 76 72 Respiratory 18 18 Rate Blood Pressure 143/72 141/81 O2 Sat by Pulse 97 98 Oximetry 09/03/24 09/03/24 09/03/24 15:00 15:01 16:00 Temperature Pulse Rate 77 75 81 Respiratory 18 18 Rate Blood Pressure 128/75 118/67 O2 Sat by Pulse 98 98 Oximetry Medical Decision Making - Medical Decision Making This is an 84-year-old female who presents to the emergency department for shortness of breath and diarrhea. Was pt. sent in by a medical professional or institution? @ -No Did you speak to anyone other than the patient for history? @ -No Did you review nursing and triage notes? @ -Yes, and I agree, it is accurate with regards to the patient's symptoms. Were old charts reviewed? @ -No Differential Diagnosis? @ -Differential Dyspnea: Coronary syndrome, arrhythmia, tamponade, asthma, COPD, pulmonary embolism, pneumonia, pneumothorax, pulmonary effusion, anaphylaxis, diabetic ketoacidosis, flailed chest, pulmonary contusion, diaphragmatic rupture, anemia, neuromusc ular, this is not meant to be an all-inclusive list. EKG interpreted by me (3pts min.)? @ -EKG interpreted by me demonstrating the following: Sinus rhythm. Ventricular rate 78 bpm, AL interval 130 ms, QRS duration 82 ms, QTc 382 ms. X-rays interpreted by me (1pt min.)? @ -Chest x-ray obtained. My interpretation identifies prominent pulmonary v asculature. CT interpreted by me (1pt min.)? @ -Not obtained U/S interpreted by me (1pt. min.)? @ -Not obtained What testing was considered but not performed? (CT, X-rays, U/S, labs)? Why? @ -None What meds were considered but not given? Why? @ -None Did you discuss the management of the patient with other professionals? @ -Yes, Dr. Rodriguez, who accepts the patient for admission. Did you reconcile home meds? @ -No Was smoking cessation discussed for >3mins.? @ -No Was critical care preformed (if so, how long)? @ -No Were there social determinants of health that impacted care today? How? (Homelessness, low income, unemployed, alcoholism, drug addiction, transportation, low edu. Level, literacy, decrease access to med. care, assisted, rehab)? @ -No Was there de-escalation of care discussed even if they declined? (Discuss DNR or withdrawal of care, Hospice)? @ -No What co-morbidities impacted this encounter? (DM, HTN, Smoking, COPD, CAD, Cancer, CVA, Hep., AIDS, mental health diagnosis, sleep apnea, morbid obesity)? @ -Pulmonary fibrosis, DM, HTN Was patient admitted / discharged? @ -Admitted. Lab work demonstrates an elevated lactic acid of 2.8. Magnesium low at 1.2. BNP 1450. COVID, influenza, and RSV testing negative. Urinalysis negative for signs of infection. Chest x-ray demonstrates signs of pulmonary edema. 4 g of magnesium sulfate administered for the hypomagnesemia. 40 mg of IV Lasix administered for the pulmonary edema. BNP is only 1450 which is acceptable for her age. Patient denies a history of CHF. Patient admitted to medicine for hypomagnesemia and pulmonary edema. Echocardiogram ordered for further evaluation of the pulmonary edema. Consult placed for pulmonology. Case discussed with ED attending Dr. Luis. Undiagnosed new problem with uncertain prognosis? @ -None Drug Therapy requiring intensive monitoring for toxicity (Heparin, Nitro, Insulin, Cardizem)? @ -None Were any procedures done? @ -None Diagnosis/symptom? @ -Pulmonary edema, hypomagnesemia Acute, or Chronic, or Acute on Chronic? @ -Acute Uncomplicated (without systemic symptoms) or Complicated (systemic symptoms)? @ -Complicated Side effects of treatment? @ -None Exacerbation, Progression, or Severe Exacerbation] @ -Not applicable Poses a threat to life or bodily function? @ -Yes, can lead to respiratory failure - Lab Data Result diagrams: 09/03/24 09:26 09/03/24 09: Lab Results 09/03/24 09/03/24 09/03/24 Range/Units 09:26 09:26 09:26 WBC 9.78 (4.50-10.00) 10*3/uL RBC 4.04 L (4.10-5.20) 10*6/uL Hgb 12.9 (12.0-15.0) g/dL Hct 37.9 (37.2-46.3) % MCV 93.8 (80.0-97.0) fL MCH 31.9 (27.0-32.0) pg MCHC 34.0 (32.0-37.0) g/dL Plt Count 218 (140-440) 10*3/uL MPV 9.6 (9.5-12.2) fL Immature Gran % (Auto) 0.9 % Neutrophils % 81.6 % Lymphocytes % 10.9 % Monocytes % 6.0 % Eosinophils % 0.0 % Basophils % 0.6 % Immature Gran # 0.09 H (0.00-0.04) 10*3/uL Neutrophils # 7.97 H (1.80-7.70) 10*3/uL Lymphocytes # 1.07 (0.90-5.00) 10*3/uL Monocytes # 0.59 (0.20-1.00) 10*3/uL Eosinophils # 0.00 L (0.04-0.35) 10*3/uL Basophils # 0.06 (0.00-0.10) 10*3/uL PT 11.8 (10.0-12.5) sec INR 1.1 (<1.2) APTT 22.0 (22.0-30.0) sec Sodium 135 L (137-145) mmol/L Potassium 3.5 (3.5-5.1) mmol/L Chloride 102 (98-107) mmol/L Carbon Dioxide 24 (22-30) mmol/L Anion Gap 9 mmol/L BUN 15 (7-17) mg/dL Creatinine 0.52 (0.52-1.04) mg/dL Est GFR (CKD-EPI)AfAm >90 (>60 ml/min/1.73 sqM) Est GFR (CKD-EPI)NonAf 89 (>60 ml/min/1.73 sqM) Glucose 159 H (74-99) mg/dL Lactic Ac Sepsis Rflx Plasma Lactic Acid Maynor (0.7-2.0) mmol/L Calcium 9.3 (8.4-10.2) mg/dL Magnesium 1.2 L (1.6-2.3) mg/dL Total Bilirubin 0.6 (0.2-1.3) mg/dL AST 20 (14-36) U/L ALT 13 (4-34) U/L Alkaline Phosphatase 55 (38-126) U/L Troponin I (0.000-0.034) ng/mL NT-Pro-B Natriuret Pep 1450 pg/mL Total Protein 6.2 L (6.3-8.2) g/dL Albumin 3.7 (3.5-5.0) g/dL Urine Color Urine Appearance (Clear) Urine pH (5.0-8.0) Ur Specific [place] (1.001-1.035) Urine Protein (Negative) Urine Glucose (UA) (Negative) Urine Ketones (Negative) Urine Blood (Negative) Urine Nitrite (Negative) Urine Bilirubin (Negative) Urine Urobilinogen (<2.0) mg/dL Ur Leukocyte Esterase (Negative) Urine RBC (0-5) /hpf Urine WBC (0-5) /hpf Urine Mucus (None) /hpf Influenza Type A (PCR) (Not Detectd) Influenza Type B (PCR) (Not Detectd) RSV (PCR) (Not Detectd) SARS-CoV-2 (PCR) (Not Detectd) 09/03/24 09/03/24 09/03/24 Range/Units 09:26 09:26 09:26 WBC (4.50-10.00) 10*3/uL RBC (4.10-5.20) 10*6/uL Hgb (12.0-15.0) g/dL Hct (37.2-46.3) % MCV (80.0-97.0) fL MCH (27.0-32.0) pg MCHC (32.0-37.0) g/dL Plt Count (140-440) 10*3/uL MPV (9.5-12.2) fL Immature Gran % (Auto) % Neutrophils % % Lymphocytes % % Monocytes % % Eosinophils % % Basophils % % Immature Gran # (0.00-0.04) 10*3/uL Neutrophils # (1.80-7.70) 10*3/uL Lymphocytes # (0.90-5.00) 10*3/uL Monocytes # (0.20-1.00) 10*3/uL Eosinophils # (0.04-0.35) 10*3/uL Basophils # (0.00-0.10) 10*3/uL PT (10.0-12.5) sec INR (<1.2) APTT (22.0-30.0) sec Sodium (137-145) mmol/L Potassium (3.5-5.1) mmol/L Chloride (98-107) mmol/L Carbon Dioxide (22-30) mmol/L Anion Gap mmol/L BUN (7-17) mg/dL Creatinine (0.52-1.04) mg/dL Est GFR (CKD-EPI)AfAm (>60 ml/min/1.73 sqM) Est GFR (CKD-EPI)NonAf (>60 ml/min/1.73 sqM) Glucose (74-99) mg/dL Lactic Ac Sepsis Rflx Plasma Lactic Acid Maynor 2.8 H* (0.7-2.0) mmol/L Calcium (8.4-10.2) mg/dL Magnesium (1.6-2.3) mg/dL Total Bilirubin (0.2-1.3) mg/dL AST (14-36) U/L ALT (4-34) U/L Alkaline Phosphatase (38-126) U/L Troponin I <0.012 (0.000-0.034) ng/mL NT-Pro-B Natriuret Pep pg/mL Total Protein (6.3-8.2) g/dL Albumin (3.5-5.0) g/dL Urine Color Urine Appearance (Clear) Urine pH (5.0-8.0) Ur Specific [place] (1.001-1.035) Urine Protein (Negative) Urine Glucose (UA) (Negative) Urine Ketones (Negative) Urine Blood (Negative) Urine Nitrite (Negative) Urine Bilirubin (Negative) Urine Urobilinogen (<2.0) mg/dL Ur Leukocyte Esterase (Negative) Urine RBC (0-5) /hpf Urine WBC (0-5) /hpf Urine Mucus (None) /hpf Influenza Type A (PCR) Not Detected (Not Detectd) Influenza Type B (PCR) Not Detected (Not Detectd) RSV (PCR) Not Detected (Not Detectd) SARS-CoV-2 (PCR) Not Detected (Not Detectd) 09/03/24 09/03/24 Range/Units 09:40 10:12 WBC (4.50-10.00) 10*3/uL RBC (4.10-5.20) 10*6/uL Hgb (12.0-15.0) g/dL Hct (37.2-46.3) % MCV (80.0-97.0) fL MCH (27.0-32.0) pg MCHC (32.0-37.0) g/dL Plt Count (140-440) 10*3/uL MPV (9.5-12.2) fL Immature Gran % (Auto) % Neutrophils % % Lymphocytes % % Monocytes % % Eosinophils % % Basophils % % Immature Gran # (0.00-0.04) 10*3/uL Neutrophils # (1.80-7.70) 10*3/uL Lymphocytes # (0.90-5.00) 10*3/uL Monocytes # (0.20-1.00) 10*3/uL Eosinophils # (0.04-0.35) 10*3/uL Basophils # (0.00-0.10) 10*3/uL PT (10.0-12.5) sec INR (<1.2) APTT (22.0-30.0) sec Sodium (137-145) mmol/L Potassium (3.5-5.1) mmol/L Chloride (98-107) mmol/L Carbon Dioxide (22-30) mmol/L Anion Gap mmol/L BUN (7-17) mg/dL Creatinine (0.52-1.04) mg/dL Est GFR (CKD-EPI)AfAm (>60 ml/min/1.73 sqM) Est GFR (CKD-EPI)NonAf (>60 ml/min/1.73 sqM) Glucose (74-99) mg/dL Lactic Ac Sepsis Rflx Y Plasma Lactic Acid Maynor (0.7-2.0) mmol/L Calcium (8.4-10.2) mg/dL Magnesium (1.6-2.3) mg/dL Total Bilirubin (0.2-1.3) mg/dL AST (14-36) U/L ALT (4-34) U/L Alkaline Phosphatase (38-126) U/L Troponin I (0.000-0.034) ng/mL NT-Pro-B Natriuret Pep pg/mL Total Protein (6.3-8.2) g/dL Albumin (3.5-5.0) g/dL Urine Color Colorless Urine Appearance Clear (Clear) Urine pH 5.5 (5.0-8.0) Ur Specific [place] 1.008 (1.001-1.035) Urine Protein Negative (Negative) Urine Glucose (UA) Negative (Negative) Urine Ketones Negative (Negative) Urine Blood Trace H (Negative) Urine Nitrite Negative (Negative) Urine Bilirubin Negative (Negative) Urine Urobilinogen <2.0 (<2.0) mg/dL Ur Leukocyte Esterase Negative (Negative) Urine RBC 1 (0-5) /hpf Urine WBC <1 (0-5) /hpf Urine Mucus Rare H (None) /hpf Influenza Type A (PCR) (Not Detectd) Influenza Type B (PCR) (Not Detectd) RSV (PCR) (Not Detectd) SARS-CoV-2 (PCR) (Not Detectd) - Radiology Data Radiology results: report reviewed, image reviewed Disposition Clinical Impression: Hypomagnesemia, Weakness, Pulmonary edema Disposition: ADMITTED IP TO THIS HOSP
[2024-09-03] MEDS: MAGNESIUM SULFATE-D5W PMX 1 GM in DEXTROSE/WATER 1 100ML.BAG IVPB SCH (10:20)
[2024-09-03] MEDS ORDERED: ONDANSETRON 4 MG/2 ML VIAL IVP PRN (10:27)
[2024-09-03] MEDS ORDERED: NALOXONE 0.4 MG/ML 1 ML VIAL IV PRN (10:27)
[2024-09-03] MEDS ORDERED: HYDROcodone/APAP 5-325MG 1 EACH TAB PO PRN (10:27)
[2024-09-03] MEDS: IPRATROPIUM-ALBUTEROL 3 ML NEB INHALATION STA (10:28)
[2024-09-03] MEDS: FUROSEMIDE 10 MG/ML 4 ML VIAL IV STA (10:44)
[2024-09-03] MEDS ORDERED: ALBUTEROL NEBULIZED 2.5 MG/3 ML INHALATION PRN (10:59)
[2024-09-03] MEDS ORDERED: ALPRAZolam 0.25 MG TAB PO PRN (10:59)
[2024-09-03] MEDS ORDERED: ALBUTEROL HFA INHALER INHALATION PRN (10:59)
[2024-09-03] MEDS ORDERED: DIPHENOX-ATROP 2.5-0.025 MG 1 EACH TAB PO PRN (10:59)
[2024-09-03] MEDS: HYDROcodone/APAP 5-325MG 1 EACH TAB PO PRN (11:27)
[2024-09-03] MEDS ORDERED: IPRATROPIUM-ALBUTEROL 3 ML NEB INHALATION PRN (11:28)
[2024-09-03] MEDS ORDERED: IOPAMIDOL CONTRAST (ORAL USE) VIAL PO PRN (12:11)
--- NOTE | 2024-09-03 12:17 | P.HPIM ---
History of Present Illness This is a pleasant 84 years old female with past medical history of multiple medical problems as below. Including history of COPD and pulmonary fibrosis and she follow-up with Dr. Villa in the office. Patient presents because of worsening shortness of breath and chest pressure for about 1 week. Also she is complaining from diarrhea which she describes as severe she had 6 bowel movements yesterday and they were loose. While she was in the emergency room she was started complaining from lower abdominal pain about 5/10 in severity felt nonspecific nonradiating that comes and goes. It has more with passing urine not sure if she has dysuria but she has urge to pee nothing coming up. Will check urinalysis was negative. Bladder scan is requested as well. Injury going to check CT of the abdomen and pelvis with contrast orally only no IV contrast. She is complaining from low back pain. She walks using a walker but she got really short of breath and exertional dyspnea She states that she was recently treated for influenza about 2 weeks ago by her PCP with the steroids and antibiotics and she states that antibiotics always make her having diarrhea. She is also have cough and yellow phlegm on and off for the last 2 months. No vomiting no headache dizziness weakness or tingling. She denies smoking alcohol or illicit drugs. She is hemodynamically stable and required 3 to 4 L/min to keep saturation 97. She has unremarkable CBC, BMP LFT INR, troponin. Urinalysis negative. Influenza and COVID test were negative. Magnesium low 1.2. Lactic acid 2.8 which is slightly elevated. proBNP is high 1450. EKG showing sinus rhythm at [address]-T changes. Chest x-ray showing mild pulm lateral pleural effusion left more than right with possible pulmonary congestion Ejection fraction is unknown and echocardiogram is requested as well as C. difficile. She is currently placed on IV Lasix 40 mg twice daily. She continued on home dose of prednisone 5 mg and Plavix. Review of Systems Review of systems CONSTITUTIONAL: No fever, no malaise, no fatigue. HEENT: No recent visual problems or hearing problems. Denied any sore throat. CARDIOVASCULAR: No orthopnea, PND, no palpitations, no syncope. PULMONARY: No shortness of breath, no cough, no hemoptysis. GASTROINTESTINAL: No diarrhea, no nausea, no vomiting, no abdominal pain. Normoactive bowel sounds. NEUROLOGICAL: No headaches, no weakness, no numbness. HEMATOLOGICAL: Denies any bleeding or petechiae. GENITOURINARY: Denies any burning micturition, frequency, or urgency. MUSCULOSKELETAL/RHEUMATOLOGICAL: Denies any joint pain, swelling, or any muscle pain. ENDOCRINE: Denies any polyuria or polydipsia. 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 oophorectomy, right leg varicose vein surg. robbin cataract, exploratory surgery on chest area to remove a "lump", Past Anesthesia/Blood Transfusion Reactions: No Reported Reaction, Family Hist ory of Problems w/ Anesthesia Additional Past Anesthesia/Blood Transfusion Reaction / Comment(s): claustrophobia, son had diff breathing during surgery at age 6,. no problems with prior blood transfusion Past Psychological History: Anxiety Smoking Status: Former smoker - Past Family History Father Family Medical History: Deep Vein Thrombosis (DVT) Additional Family Medical History / Comment(s): FROM CORONARY THROMBOSIS Mother Family Medical History: Pneumonia, Rheumatoid Arthritis (RA) Additional Family Medical History / Comment(s): Peptic ulcer disease.PVD, HAITAL HERNIA, DIVERTICULITIS Sister(s) Family Medical History: Blood Disorder, Cancer, Deep Vein Thrombosis (DVT) Additional Family Medical History / Comment(s): Colon polyps. Medications and Allergies Home Medications Medication Instructions Recorded Confirmed Type ALPRAZolam [Xanax] 0.25 mg PO DAILY 10/12/13 09/03/24 History Albuterol Sulfate [Ventolin HFA] 2 puff INHALATION RT-Q4H PRN 10/12/13 09/03/24 History Levothyroxine Sodium [Synthroid] 75 mcg PO DAILY 10/12/13 09/03/24 History Clopidogrel [Plavix] 75 mg PO DAILY 01/09/17 09/03/24 History Diphenoxylate HCl/Atropine 2 tab PO DAILY 08/05/19 09/03/24 History [Lomotil 2.5-0.025 mg Tablet] Albuterol Nebulized [Ventolin 2.5 mg INHALATION RT-Q6H PRN 11/02/22 09/03/24 History Nebulized] Latanoprost [Latanoprost 0.005%] 1 drop RIGHT EYE HS 11/02/22 09/03/24 History Metoprolol Succinate (ER) [Toprol 25 mg PO DAILY 11/02/22 09/03/24 History Xl] Pantoprazole Sodium 40 mg PO DAILY 11/02/22 09/03/24 History predniSONE See Taper PO DAILY 11/02/22 09/03/24 History Calcium Carb-Vit D 250Mg-125Un 1 tab PO DAILY 09/03/24 09/03/24 History [Oscal 250+D 3.125 Mcg (125 Iu)] Cholestyramine (with Sugar) 4 gm PO DAILY 09/03/24 09/03/24 History [Cholestyramine Powder] Diphenoxylate HCl/Atropine 1 tab PO HS PRN 09/03/24 09/03/24 History [Diphenoxylate HCl/Atropine 2.5-0.025] Diphenoxylate HCl/Atropine 1 tab PO W/SUPPER 09/03/24 09/03/24 History [Lomotil 2.5-0.025 mg Tablet] Allergies Allergy/AdvReac Type Severity Reaction Status Date / Time erythromycin base Allergy Intermediate Abdominal Verified 09/03/24 10:46 [Erythromycin Base] Pain denosumab [From Prolia] Allergy Rash/Hives Verified 09/03/24 10:46 Physical Exam Vitals: Vital Signs Temp Pulse Resp BP Pulse Ox 09/03/24 11:00 72 18 143/72 97 09/03/24 10:43 70 09/03/24 10:31 69 09/03/24 09:02 97.1 F L 79 18 148/80 97 Intake and Output 09/02/24 09/03/24 09/03/24 22:59 06:59 14:59 Other: Weight 68.946 kg GENERAL: The patient is alert and oriented x3, not in any acute distress. Well developed, well nourished. HEENT: Pupils are round and equally reacting to light. EOMI. No scleral icterus. No conjunctival pallor. Normocephalic, atraumatic. No pharyngeal erythema. No thyromegaly. CARDIOVASCULAR: S1 and S2 present. No murmurs, rubs, or gallops. -PULMONARY: Chest is clear to auscultation, no wheezing , bilateral basal crackles. Tachypnea -ABDOMEN: Soft, lower abdominal tenderness r, nondistended, normoactive bowel sounds. No palpable organomegaly. MUSCULOSKELETAL: No joint swelling or deformity. EXTREMITIES: No cyanosis, clubbing, or pedal edema. NEUROLOGICAL: Gross neurological examination did not reveal any focal deficits. SKIN: No rashes. no petechiae. Results CBC & Chem 7: 09/03/24 09:26 09/03/24 09:26 Labs: Abnormal Lab Results - Last 24 Hours (Table) 09/03/24 09/03/24 09/03/24 Range/Units 09:26 09:26 09:26 RBC 4.04 L (4.10-5.20) 10*6/uL Immature Gran # 0.09 H (0.00-0.04) 10*3/uL Neutrophils # 7.97 H (1.80-7.70) 10*3/uL Eosinophils # 0.00 L (0.04-0.35) 10*3/uL Sodium 135 L (137-145) mmol/L Glucose 159 H (74-99) mg/dL Plasma Lactic Acid Maynor 2.8 H* (0.7-2.0) mmol/L Magnesium 1.2 L (1.6-2.3) mg/dL Total Protein 6.2 L (6.3-8.2) g/dL Urine Blood (Negative) Urine Mucus (None) /hpf 09/03/24 Range/Units 09:40 RBC (4.10-5.20) 10*6/uL Immature Gran # (0.00-0.04) 10*3/uL Neutrophils # (1.80-7.70) 10*3/uL Eosinophils # (0.04-0.35) 10*3/uL Sodium (137-145) mmol/L Glucose (74-99) mg/dL Plasma Lactic Acid Maynor (0.7-2.0) mmol/L Magnesium (1.6-2.3) mg/dL Total Protein (6.3-8.2) g/dL Urine Blood Trace H (Negative) Urine Mucus Rare H (None) /hpf Assessment and Plan Assessment: Acute CHF exacerbation, pulmonary congestion History of COPD and pulmonary fibrosis Diarrhea, rule out C. difficile with lower abdominal pain. Mildly elevated lactic acid Hypomagnesemia Recent diagnosis with influenza treated with antibiotics and steroids. History of DVT Gastroesophageal reflux disease Hypertension Osteoarthritis Hypothyroidism. History of pelvic inflammatory disease. History of diarrhea History of anemia. S/p cholecystectomy Plan: Continue with IV Lasix 40 mg once daily Continue with Plavix and prednisone 5 mg Replace magnesium and monitor electrolytes Check CT of the abdomen and pelvis with oral contrast only Check for C. difficile Echocardiogram Pulmonary team consult Labs and medication were reviewed.. Continue same treatment. Continue with symptomatic treatment. Resume home medication. Monitor labs and vitals. DVT and GI prophylaxis. Further recommendations as per clinical course of the patient DVT prophylaxis: Subcutaneous heparin GI Prophylaxis: Protonix PT/OT: Pending Prognosis is guarded
--- NOTE | 2024-09-03 14:32 | P.CNPUL ---
History of Present Illness Consult date: 09/03/24 Requesting physician: El E Sheet Reason for consult: dyspnea, pulmonary fibrosis, abnormal CXR/CT Chief complaint: Shortness of breath History of present illness: This is an 84-year-old female patient with a known history of diabetes mellitus, DVT, hypertension, hypothyroidism, gastroesophageal reflux disease, former smoker and oxygen dependent, steroid-dependent pulmonary fibrosis and follows with Dr. Kirkland in our office. She had seen him recently for increasing shortness of breath and was placed on Levaquin and a prednisone taper. She did develop diarrhea over the past couple days. She has been quite weak and shaky and feeling more short of breath. He also had complaints of increased edema of the lower extremities as she was taken off her Lasix due to the diarrhea and presented here to the emergency room this morning. Chest x-ray shows evidence of pulmonary fibrosis. White count 9.7. Hemoglobin 12.9. Platelets 218. Sodium 135. Potassium 3.5. Bicarb 24. BUN 15. Creatinine 0.52. Glucose 159. AST 20. ALT 13. Troponin negative x 1. proBNP 1450. Urinalysis clean. Viral screen negative. She is seen today in consultation in the emergency department. She is currently sitting up on a stretcher. Awake and alert in no acute distress. She is maintaining O2 saturations in the 90s on 3 L/min per nasal cannula. She is afebrile. Hemodynamically stable. Review of Systems REVIEW OF SYSTEMS: CONSTITUTIONAL: Denies any recent significant weight loss or weight gain. EYES: Denies change in vision. EARS, NOSE, MOUTH, THROAT: Denies headaches, denies sore throat. CARDIOVASCULAR: Denies chest pain, palpitations or syncopal episodes. RESPIRATORY: Positive for shortness of breath, no cough, congestion or hemoptysis. GASTROINTESTINAL: Positive for diarrhea. GENITOURINARY: Denies hematuria, denies infections. MUSKULOSKELETAL: Positive for lower extremity swelling. INTEGUMENTARY: Denies rash, denies eczema. NEUROLOGICAL: Denies recent memory loss, no recent seizure activity. PSYCHIATRIC: Denies anxiety, denies depression. HEMATOLOGIC/LYMPHATIC: Denies anemia, denies enlarged lymph nodes. 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 oophorectomy, right leg varicose vein surg. robbin cataract, exploratory surgery on chest area to remove a "lump", Past Anesthesia/Blood Transfusion Reactions: No Reported Reaction, Family History of Problems w/ Anesthesia Additional Past Anesthesia/Blood Transfusion Reaction / Comment(s): claustrop hobia, son had diff breathing during surgery at age 6,. no problems with prior blood transfusion Past Psychological History: Anxiety Smoking Status: Former smoker - Past Family History Father Family Medical History: Deep Vein Thrombosis (DVT) Additional Family Medical History / Comment(s): FROM CORONARY THROMBOSIS Mother Family Medical History: Pneumonia, Rheumatoid Arthritis (RA) Additional Family Medical History / Comment(s): Peptic ulcer disease.PVD, HAITAL HERNIA, DIVERTICULITIS Sister(s) Family Medical History: Blood Disorder, Cancer, Deep Vein Thrombosis (DVT) Additional Family Medical History / Comment(s): Colon polyps. Medications and Allergies Home Medications Medication Instructions Recorded Confirmed Type ALPRAZolam [Xanax] 0.25 mg PO DAILY 10/12/13 09/03/24 History Albuterol Sulfate [Ventolin HFA] 2 puff INHALATION RT-Q4H PRN 10/12/13 09/03/24 History Levothyroxine Sodium [Synthroid] 75 mcg PO DAILY 10/12/13 09/03/24 History Clopidogrel [Plavix] 75 mg PO DAILY 01/09/17 09/03/24 History Diphenoxylate HCl/Atropine 2 tab PO DAILY 08/05/19 09/03/24 History [Lomotil 2.5-0.025 mg Tablet] Albuterol Nebulized [Ventolin 2.5 mg INHALATION RT-Q6H PRN 11/02/22 09/03/24 History Nebulized] Latanoprost [Latanoprost 0.005%] 1 drop RIGHT EYE HS 11/02/22 09/03/24 History Metoprolol Succinate (ER) [Toprol 25 mg PO DAILY 11/02/22 09/03/24 History Xl] Pantoprazole Sodium 40 mg PO DAILY 11/02/22 09/03/24 History predniSONE See Taper PO DAILY 11/02/22 09/03/24 History Calcium Carb-Vit D 250Mg-125Un 1 tab PO DAILY 09/03/24 09/03/24 History [Oscal 250+D 3.125 Mcg (125 Iu)] Cholestyramine (with Sugar) 4 gm PO DAILY 09/03/24 09/03/24 History [Cholestyramine Powder] Diphenoxylate HCl/Atropine 1 tab PO HS PRN 09/03/24 09/03/24 History [Diphenoxylate HCl/Atropine 2.5-0.025] Diphenoxylate HCl/Atropine 1 tab PO W/SUPPER 09/03/24 09/03/24 History [Lomotil 2.5-0.025 mg Tablet] Allergies Allergy/AdvReac Type Severity Reaction Status Date / Time erythromycin base Allergy Intermediate Abdominal Verified 09/03/24 10:46 [Erythromycin Base] Pain denosumab [From Prolia] Allergy Rash/Hives Verified 09/03/24 10:46 Physical Exam Vitals: Vital Signs Temp Pulse Resp BP Pulse Ox 09/03/24 13:00 76 18 141/81 98 09/03/24 11:00 72 18 143/72 97 09/03/24 10:43 70 09/03/24 10:31 69 09/03/24 09:02 97.1 F L 79 18 148/80 97 Intake and Output 09/02/24 09/03/24 09/03/24 22:59 06:59 14:59 Other: Weight 68.946 kg GENERAL EXAM: Alert, oriented, pleasant 84-year-old female, on 3 L nasal cannula, fairly comfortable in no apparent distress. HEAD: Normocephalic. EYES: Normal reaction of pupils, equal size. NOSE: Clear with pink turbinates. THROAT: No erythema or exudates. NECK: No masses, no JVD. CHEST: No chest wall deformity. LUNGS: Equal air entry with Velcro crackles in the bilateral bases. CVS: S1 and S2 normal with no audible murmur, regular rhythm. ABDOMEN: No hepatosplenomegaly, normal bowel sounds, no guarding or rigidity. SPINE: No scoliosis or deformity SKIN: No rashes CENTRAL NERVOUS SYSTEM: No focal deficits, tone is normal in all 4 extremities. EXTREMITIES: There is trace peripheral edema. No clubbing, no cyanosis. Peripheral pulses are intact. Results - Laboratory Findings CBC and BMP: 09/03/24 09:26 09/03/24 09:26 PT/INR, D-dimer PT 11.8 sec (10.0-12.5) 09/03/24 09: INR 1.1 (<1.2) 09/03/24 09:26 Abnormal lab findings: Abnormal Labs 09/03/24 09/03/24 09/03/24 09:26 09:26 09:26 RBC 4.04 L Immature Gran # 0.09 H Neutrophils # 7.97 H Eosinophils # 0.00 L Sodium 135 L Glucose 159 H Plasma Lactic Acid Maynor 2.8 H* Magnesium 1.2 L Total Protein 6.2 L Urine Blood Urine Mucus 09/03/24 09:40 RBC Immature Gran # Neutrophils # Eosinophils # Sodium Glucose Plasma Lactic Acid Maynor Magnesium Total Protein Urine Blood Trace H Urine Mucus Rare H - Diagnostic Findings Chest x-ray: image reviewed Assessment and Plan Assessment: Acute on chronic hypoxemic respiratory failure secondary to pulmonary fibrosis and possible underlying infection. Treated with Levaquin and steroids in the outpatient setting Diarrhea and weakness suspect secondary to antibiotics Lower extremity edema secondary to being off diuretics while having diarrhea History of oxygen dependent, steroid-dependent pulmonary fibrosis Remote history of DVT Former smoker Plan: The patient was seen and evaluated Chest x-ray, labs and medications reviewed Currently stable on 3 L nasal cannula Add Solu-Medrol 40 mg IV every 8 hours Add DuoNeb inhalations 4 times daily and as needed Hold off on antibiotics for now Check for C. difficile Check a procalcitonin Resume home medications Patient requests a DNR CODE STATUS Discussed the plan of care with the patient and her family at the bedside We will continue to follow and make further recommendations based on her clinical status I have personally seen and examined the patient, performed the documentation and the assessment and plan as written. Number of minutes spent on the visit: 20 Dictation was produced using [employer] dictation software. Please excuse any grammatical, word or spelling errors. Time with Patient: Greater than 30
[2024-09-03] MEDS: IPRATROPIUM-ALBUTEROL 3 ML NEB INHALATION SCH (14:49)
--- NOTE | 2024-09-03 15:00 | CT ---
EXAMINATION TYPE: CT abdomen pelvis wo con DATE OF EXAM: 09/03/2024 COMPARISON: 12/28/2017 CLINICAL INDICATION: Female, 84 years old with history of lower abd pain and tender with diarrhea; PH H, abd pain TECHNIQUE: CT scan of the abdomen and pelvis is performed without oral or IV contrast. CT DLP: 599.[address] CTDI: mGy Automated exposure control for dose reduction was used. FINDINGS: Within the limitations of a non-contrast study, the following observations are made. There is marked honeycombing and increased interstitial opacities in the lung bases consistent with p ulmonary fibrosis The gallbladder is surgically absent. There is no biliary ductal dilatation. There is no organomegaly of the liver, pancreas, spleen or adrenal glands. Pancreas is atrophic There is marked bilateral hydronephrosis. Suspected ureteral calcification is identified in the dista l third of both ureters with tiny leslye-like calcifications and a single dominant 3-4 mm calcificatio ns in each ureter. The caliber of the abdominal aorta is normal and there is no retroperitoneal adenopathy or hemorrhage . The bowel loops are normal in caliber is no evidence of obstruction. No inflammatory changes are iden tified in the mesentery and there is no free intraperitoneal air or fluid. There is marked diverticul osis of the colon without CT evidence of acute diverticulitis. There is no pelvic mass, free fluid, abscess or adenopathy. The osseous structures and soft tissues are unremarkable. IMPRESSION: 1. Marked pulmonary fibrosis in the visualized lung bases. 2. Marked bilateral hydronephrosis with obstructing calcification suspected in the distal thirds of b oth ureters as described above. 3. Marked diverticulosis of the colon without CT evidence of acute diverticulitis. [facility], , 09/03/2024 2:58 PM
[2024-09-03] MEDS: MORPHINE SULFATE 4 MG/ML SYRINGE IV PRN (15:06)
[2024-09-03] MEDS: methylPREDNISolone SOD SUCCI 40 MG/ML 1 ML VIAL IV SCH (16:51)
[2024-09-03 18:23] LABS: Glucose,Whole Blood 144 mg/dL (70-110)
[2024-09-03] MEDS: PANTOPRAZOLE 40 MG TABLET PO STA (18:33)
[2024-09-03] MEDS: TAMSULOSIN 0.4 MG CAP.ER.24H PO SCH (18:33)
[2024-09-03] MEDS: ACETAMINOPHEN TAB 325 MG TAB PO PRN (19:58)
[2024-09-04] MEDS: LEVOTHYROXINE 75 MCG TAB PO SCH (05:44)
[2024-09-04] MEDS: LATANOPROST 0.005% OPHTH DROPS 2.5 ML BTL RIGHT EYE SCH (05:44)
[2024-09-04 08:39] LABS: Basophils # (A) 0.01 X 10*3/uL (0.00-0.10); Basophils % (A) 0.2 %; Eosinophils # (A) 0 X 10*3/uL (0.04-0.35); Eosinophils % (A) 0 %; HCT 36.6 % (37.2-46.3); HGB 12.1 g/dL (12.0-15.0); Lymphocytes # (A) 0.35 X 10*3/uL (0.90-5.00); Lymphocytes % (A) 5.4 %; MCH 31.3 pg (27.0-32.0); MCHC 33.1 g/dL (32.0-37.0); MCV 94.6 FL (80.0-97.0); Monocytes # (A) 0.12 X 10*3/uL (0.20-1.00); Monocytes % (A) 1.9 %; NRBC Per 100 WBC 0 X 10*3/uL (0.00-0.01); Neutrophils # (A) 5.92 X 10*3/uL (1.80-7.70); Neutrophils % (A) 91.6 %; Platelet Count 209 X 10*3/uL (140-440); RBC 3.87 X 10*6/uL (4.10-5.20); RDW 14.8 % (11.5-14.5); WBC 6.46 X 10*3/uL (4.50-10.00)
[2024-09-04] MEDS: CLOPIDOGREL 75 MG TAB PO SCH (08:43)
[2024-09-04] MEDS: METOPROLOL SUCCINATE (ER) 25 MG TAB.ER.24H PO SCH (08:43)
[2024-09-04] MEDS: FUROSEMIDE 10 MG/ML 4 ML VIAL IV SCH (08:43)
[2024-09-04] MEDS: PANTOPRAZOLE 40 MG/10 ML VIAL IV SCH (08:44)
[2024-09-04 08:56] LABS: BUN/Creat Ratio 22.33 Ratio (12.00-20.00); Blood Urea Nitrogen 13.4 mg/dL (9.0-27.0); Calcium 8.8 mg/dL (8.7-10.3); Carbon Dioxide 29.9 mmol/L (21.6-31.8); Chloride 97 mmol/L (96-109); Glucose 234 mg/dL (70-110); Magnesium 1.9 mg/dL (1.5-2.4); Potassium 4.6 mmol/L (3.5-5.5); Sodium 134 mmol/L (135-145)
[2024-09-04] MEDS ORDERED: predniSONE 5 MG TAB PO SCH (09:00)
[2024-09-04] MEDS ORDERED: PANTOPRAZOLE SODIUM 40 MG GRANULE PKT PO SCH (09:00)
--- NOTE | 2024-09-04 10:55 | CA ---
Transthoracic Echo Report Name: Jeannie Esparza Age: 84 Gender: F : 1940 Exam Date: 09/03/2024 14:16 Exam Location: [facility] Ht (in): 64 Wt (lb): 152 Ordering Physician: Edie Villela Attending/Referring Phys: Manager Transplant Marycruz Rivera RDCS Procedure CPT: Indications: Pulmonary edema, eval for CHF Cardiac Hx: Technical Quality: Good Contrast 1: Total Dose (mL): Contrast 2: Total Dose (mL): MEASUREMENTS (Male / Female) Normal Values 2D ECHO LV Diastolic Diameter PLAX 4.7 cm 4.2 - 5.9 / 3.9 - 5.3 cm LV Systolic Diameter PLAX 3.0 cm IVS Diastolic Thickness 0.9 cm 0.6 - 1.0 / 0.6 - 0.9 cm LVPW Diastolic Thickness 1.1 cm 0.6 - 1.0 / 0.6 - 0.9 cm LV Relative Wall Thickness 0.4 RV Internal Dim ED PLAX 3.0 cm LA Systolic Diameter LX 5.1 cm 3.0 - 4.0 / 2.7 - 3.8 cm LV Diastolic Volume MOD BP 63.4 cm??? 67 - 155 / 56 - 104 cm??? LV Systolic Volume MOD BP 28.6 cm??? 22 - 58 / 19 - 49 cm??? LV Ejection Fraction MOD BP 54.8 % >= 55 % LV Cardiac Index MOD BP 1992.7 cm???/min???m??? LV Diastolic Volume MOD 4C 70.6 cm??? LV Systolic Volume MOD 4C 25.0 cm??? LV Ejection Fraction MOD 4C 64.6 % LV Cardiac Index MOD 4C 2615.6 cm???/min???m??? LV Diastolic Length 4C 6.6 cm LV Systolic Length 4C 5.8 cm LV Diastolic Volume MOD 2C 55.3 cm??? LV Systolic Volume MOD 2C 32.5 cm??? LV Ejection Fraction MOD 2C 41.2 % LV Cardiac Index MOD 2C 1308.0 cm???/min???m??? LV Diastolic Length 2C 6.8 cm LV Systolic Length 2C 5.9 cm LA Volume 99.0 cm??? 18 - 58 / 22 - 52 cm??? LA Volume Index 55.6 cm???/m??? 16 - 28 cm???/m??? M-MODE Aortic Root Diameter MM 3.2 cm LA Systolic Diameter MM 4.4 cm LA Ao Ratio MM 1.4 AV Cusp Separation MM 1.8 cm DOPPLER AV Peak Velocity 137.8 cm/s AV Peak Gradient 7.6 mmHg AV Mean Velocity 92.2 cm/s AV Mean Gradient 3.8 mmHg AV Velocity Time Integral 32.3 cm LVOT Peak Velocity 110.4 cm/s LVOT Peak Gradient 4.9 mmHg LVOT Velocity Time Integral 29.3 cm MV Area PHT 3.4 cm??? Mitral E Point Velocity 85.8 cm/s Mitral A Point Velocity 99.9 cm/s Mitral E to A Ratio 0.9 MV Deceleration Time 223.5 ms TR Peak Velocity 341.5 cm/s TR Peak Gradient 46.7 mmHg Right Atrial Pressure 10.0 mmHg Pulmonary Artery Systolic Pressu 56.7 mmHg Right Ventricular Systolic Press 56.7 mmHg PV Peak Velocity 91.5 cm/s PV Peak Gradient 3.3 mmHg FINDINGS Left Ventricle Left ventricular ejection fraction is estimated at 55-60 %. Mildly increased posterior wall thickness. Normal left ventricular systolic function with no obvious regional wall motion abnormalities. Right Ventricle Normal right ventricular size and function. Moderate to severe pulmonary hypertension. Right ventricular systolic pressure estimated at 57 mmHg. Right Atrium Moderate right atrial dilatation. Left Atrium Severely increased left atrial diameter. Severely increased left atrial volume. Mildly increased left atrial area. Mitral Valve Structurally normal mitral valve. Mild mitral regurgitation. No mitral stenosis. Aortic Valve Trileaflet aortic valve. No aortic stenosis. No aortic regurgitation. Tricuspid Valve Structurally normal tricuspid valve. Mild tricuspid regurgitation. No tricuspid stenosis. Pulmonic Valve Structurally normal pulmonic valve. Mild pulmonic regurgitation. No pulmonic stenosis. Pericardium No pericardial or pleural effusion. Aorta Normal size aortic root and proximal ascending aorta. CONCLUSIONS Normal LV systolic function Moderate to severe pulmonary hypertension Mild mitral regurgitation Previewed by: Dr. Trey Barnard MD (Electronically Signed) Final Date: 04 September 2024 10:55
--- NOTE | 2024-09-04 11:53 | P.GSCN ---
History of Present Illness Consult date: 09/04/24 History of present illness: 84 yo female with a known history of pulmonary fibrosis was admitted for sob exacerbation. she had a ct scan that shows bilateral hydronephrosis and a distended bladder For this reason we were asked to see the patient. SHe subsequently had a catheter placed. The patient does have a history of urinary frequency. She has had intermittent urine infections. There is question of incomplete bladder emptying. She has not had any previous urologic evaluation. Review of Systems All systems: negative - Constitutional Denies fever, Denies weight loss - EENT Eyes: denies blurred vision Ears, nose, mouth and throat: Denies dysphagia - Cardiovascular Denies chest pain, Denies shortness of breath - Respiratory Denies cough, Denies 7 - Gastrointestinal Reports as per HPI - Genitourinary Genitourinary: Denies dysuria, Denies hematuria - Integumentary Denies rash, Denies unusual bruising - Neurological Denies headaches, Denies syncope - Hematologic/Lymphatic Denies easy bleeding, Denies easy bruising Past Medical History Past Medical History: Blood Disorder, COPD, Diabetes Mellitus, Deep Vein Thrombosis (DVT), Eye Disorder, GERD/Reflux, GI Bleed, Hypertension, Osteoarth ritis (OA), Thyroid Disorder, Vascular Disorder Additional Past Medical History / Comment(s): freq cough,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 oophorectomy, right leg varicose vein surg. robbin cataract, exploratory surgery on chest area to remove a "lump", Past Anesthesia/Blood Transfusion Reactions: No Reported Reaction, Family History of Problems w/ Anesthesia Additional Past Anesthesia/Blood Transfusion Reaction / Comm: claustrophobia, son had diff breathing during surgery at age 6,. no problems with prior blood transfusion Past Psychological History: Anxiety Additional Psychological History / Comment(s): . Smoking Status: Former smoker Past Alcohol Use History: Rare Additional Past Alcohol Use History / Comment(s): STARTED SMOKING AT AGE 18 WORKED UP TO 1[employer]5 [employer], QUIT 1988 Past Drug Use History: None Reported - Past Family History Father Family Medical History: Deep Vein Thrombosis (DVT) Additional Family Medical History / Comment(s): FROM CORONARY THROMBOSIS Mother Family Medical History: Pneumonia, Rheumatoid Arthritis (RA) Additional Family Medical History / Comment(s): Peptic ulcer disease.PVD, HAITAL HERNIA, DIVERTICULITIS Sister(s) Family Medical History: Blood Disorder, Cancer, Deep Vein Thrombosis (DVT) Additional Family Medical History / Comment(s): Colon polyps. Medications and Allergies Home Medications Medication Instructions Recorded Confirmed Type ALPRAZolam [Xanax] 0.25 mg PO DAILY 10/12/13 09/03/24 History Albuterol Sulfate [Ventolin HFA] 2 puff INHALATION RT-Q4H PRN 10/12/13 09/03/24 History Levothyroxine Sodium [Synthroid] 75 mcg PO DAILY 10/12/13 09/03/24 History Clopidogrel [Plavix] 75 mg PO DAILY 01/09/17 09/03/24 History Diphenoxylate HCl/Atropine 2 tab PO DAILY 08/05/19 09/03/24 History [Lomotil 2.5-0.025 mg Tablet] Albuterol Nebulized [Ventolin 2.5 mg INHALATION RT-Q6H PRN 11/02/22 09/03/24 History Nebulized] Latanoprost [Latanoprost 0.005%] 1 drop RIGHT EYE HS 11/02/22 09/03/24 History Metoprolol Succinate (ER) [Toprol 25 mg PO DAILY 11/02/22 09/03/24 History Xl] Pantoprazole Sodium 40 mg PO DAILY 11/02/22 09/03/24 History predniSONE See Taper PO DAILY 11/02/22 09/03/24 History Calcium Carb-Vit D 250Mg-125Un 1 tab PO DAILY 09/03/24 09/03/24 History [Oscal 250+D 3.125 Mcg (125 Iu)] Cholestyramine (with Sugar) 4 gm PO DAILY 09/03/24 09/03/24 History [Cholestyramine Powder] Diphenoxylate HCl/Atropine 1 tab PO HS PRN 09/03/24 09/03/24 History [Diphenoxylate HCl/Atropine 2.5-0.025] Diphenoxylate HCl/Atropine 1 tab PO W/SUPPER 09/03/24 09/03/24 History [Lomotil 2.5-0.025 mg Tablet] Allergies Allergy/AdvReac Type Severity Reaction Status Date / Time erythromycin base Allergy Intermediate Abdominal Verified 09/03/24 10:46 [Erythromycin Base] Pain denosumab [From Prolia] Allergy Rash/Hives Verified 09/03/24 10:46 Surgical - Exam Vital Signs Temp Pulse Resp BP Pulse Ox 97.1 F L 79 18 148/80 97 09/03/24 09:02 09/03/24 09:02 09/03/24 09:02 09/03/24 09:02 09/03/24 09:02 - Respiratory sob - Genitourinary indwelling catheter normal external genitalia, normal perineum, perineal/vulvar lesions Results - Labs 09/04/24 04:47 09/04/24 04:47 Abnormal Lab Results - Last 24 Hours (Table) 09/03/24 09/03/24 09/03/24 Range/Units 09:26 09:26 09:26 RBC 4.04 L (4.10-5.20) 10*6/uL Immature Gran # 0.09 H (0.00-0.04) 10*3/uL Neutrophils # 7.97 H (1.80-7.70) 10*3/uL Eosinophils # 0.00 L (0.04-0.35) 10*3/uL Sodium 135 L (137-145) mmol/L Glucose 159 H (74-99) mg/dL POC Glucose (mg/dL) (70-110) mg/dL Plasma Lactic Acid Maynor 2.8 H* (0.7-2.0) mmol/L Magnesium 1.2 L (1.6-2.3) mg/dL Total Protein 6.2 L (6.3-8.2) g/dL Urine Blood (Negative) Urine Mucus (None) /hpf 09/03/24 09/03/24 Range/Units 09:40 18:22 RBC (4.10-5.20) 10*6/uL Immature Gran # (0.00-0.04) 10*3/uL Neutrophils # (1.80-7.70) 10*3/uL Eosinophils # (0.04-0.35) 10*3/uL Sodium (137-145) mmol/L Glucose (74-99) mg/dL POC Glucose (mg/dL) 144 H (70-110) mg/dL Plasma Lactic Acid Maynor (0.7-2.0) mmol/L Magnesium (1.6-2.3) mg/dL Total Protein (6.3-8.2) g/dL Urine Blood Trace H (Negative) Urine Mucus Rare H (None) /hpf Diabetes panel 09/03/24 Range/Units 09:26 Sodium 135 L (137-145) mmol/L Potassium 3.5 (3.5-5.1) mmol/L Chloride 102 (98-107) mmol/L Carbon Dioxide 24 (22-30) mmol/L BUN 15 (7-17) mg/dL Creatinine 0.52 (0.52-1.04) mg/dL Glucose 159 H (74-99) mg/dL Calcium 9.3 (8.4-10.2) mg/dL AST 20 (14-36) U/L ALT 13 (4-34) U/L Alkaline Phosphatase 55 (38-126) U/L Total Protein 6.2 L (6.3-8.2) g/dL Albumin 3.7 (3.5-5.0) g/dL Calcium panel 09/03/24 Range/Units 09:26 Calcium 9.3 (8.4-10.2) mg/dL Albumin 3.7 (3.5-5.0) g/dL Pituitary panel 09/03/24 Range/Units 09:26 Sodium 135 L (137-145) mmol/L Potassium 3.5 (3.5-5.1) mmol/L Chloride 102 (98-107) mmol/L Carbon Dioxide 24 (22-30) mmol/L BUN 15 (7-17) mg/dL Creatinine 0.52 (0.52-1.04) mg/dL Glucose 159 H (74-99) mg/dL Calcium 9.3 (8.4-10.2) mg/dL Adrenal panel 09/03/24 Range/Units 09:26 Sodium 135 L (137-145) mmol/L Potassium 3.5 (3.5-5.1) mmol/L Chloride 102 (98-107) mmol/L Carbon Dioxide 24 (22-30) mmol/L BUN 15 (7-17) mg/dL Creatinine 0.52 (0.52-1.04) mg/dL Glucose 159 H (74-99) mg/dL Calcium 9.3 (8.4-10.2) mg/dL Total Bilirubin 0.6 (0.2-1.3) mg/dL AST 20 (14-36) U/L ALT 13 (4-34) U/L Alkaline Phosphatase 55 (38-126) U/L Total Protein 6.2 L (6.3-8.2) g/dL Albumin 3.7 (3.5-5.0) g/dL - Imaging CT scan - abdomen: report reviewed, image reviewed CT scan - pelvis: report reviewed, image reviewed Assessment and Plan Assessment: Impression: pulmonary fibrosis with acute exacerbation of respiratory distress. Urine retention with secondary hydronephrosis. Acute versus chronic. Recommendations: When the patient is feeling better and ambulatory the catheter can be removed for a voiding trial. The patient should be seen in follow-up in the office to make sure she continues to void adequately if not further evaluation will need to be performed. Time with Patient: Greater than 30
--- NOTE | 2024-09-04 13:07 | P.PN ---
Subjective Progress Note Date: 09/04/24 This is an 84-year-old female patient with a known history of diabetes mellitus, DVT, hypertension, hypothyroidism, gastroesophageal reflux disease, former smoker and oxygen dependent, steroid-dependent pulmonary fibrosis and follows with Dr. Kirkland in our office. She had seen him recently for increasing shortness of breath and was placed on Levaquin and a prednisone taper. She did develop diarrhea over the past couple days. She has been quite weak and shaky and feeling more short of breath. He also had complaints of increased edema of the lower extremities as she was taken off her Lasix due to the diarrhea and presented here to the emergency room this morning. Chest x-ray shows evidence of pulmonary fibrosis. White count 9.7. Hemoglobin 12.9. Platelets 218. Sodium 135. Potassium 3.5. Bicarb 24. BUN 15. Creatinine 0.52. Glucose 159. AST 20. ALT 13. Troponin negative x 1. proBNP 1450. Urinalysis clean. Viral screen negative. She is seen today in consultation in the emergency department. She is currently sitting up on a stretcher. Awake and alert in no acute distress. She is maintaining O2 saturations in the 90s on 3 L/min per nasal cannula. She is afebrile. Hemodynamically stable. The patient was seen today September 04, 2024 in follow-up on the regular medical tn oor. She is currently sitting up in bed. Awake and alert in no acute distress. Feeling better today compared to yesterday. Maintaining O2 saturations in the 90s on 2 L/min per nasal cannula. She has been afebrile. Hemodynamically stable. She is diuresing well currently in a -1.9 L balance. White count 6.4. Hemoglobin 12.1. Platelets 209. Sodium 134. Potassium 4.6. Bicarb 30. BUN 13. Creatinine 0.6. Glucose 232. Urinalysis clean. She is continued on Lasix 40 mg IV daily. Continued on Solu-Medrol and bronchodilators. CT scan of the abdomen and pelvis revealed marked pulmonary fibrosis in the visualized lung bases. Distended bladder. Marked bilateral hydronephrosis with obstructing calcification suspected in the distal thirds of both ureters. Marked diverticulosis of the colon without evidence of acute diverticulitis. Haas catheter remains in place with significant urinary output. Abdominal discomfort has resolved. Objective - Vital Signs Vital signs: Vital Signs Temp 98.6 F 09/04/24 07:38 Pulse 100 09/04/24 09:04 Resp 16 09/04/24 08:00 BP 141/74 09/04/24 07:38 Pulse Ox 100 09/04/24 08:54 FiO2 Intake & Output 09/03/24 09/04/24 09/04/24 18:59 06:59 18:59 Intake Total 30 Output Total 800 1100 2350 Balance -800 -1100 -2320 Weight 68.946 kg 68.946 kg Intake: IV 30 Invasive Line 2 30 Output: Urine 800 1100 2350 Uretheral (Haas) 1100 Other: Voiding Method Indwelling Catheter Indwelling Catheter # Voids 1 # Bowel Movements 2 - Exam GENERAL EXAM: Alert, 84-year-old female, on 3 L nasal cannula, comfortable in no apparent distress. HEAD: Normocephalic. EYES: Normal reaction of pupils, equal size. NOSE: Clear with pink turbinates. THROAT: No erythema or exudates. NECK: No masses, no JVD. CHEST: No chest wall deformity. LUNGS: Equal air entry with Velcro crackles in the bilateral bases. CVS: S1 and S2 normal with no audible murmur, regular rhythm. ABDOMEN: No hepatosplenomegaly, normal bowel sounds, no guarding or rigidity. SPINE: No scoliosis or deformity SKIN: No rashes CENTRAL NERVOUS SYSTEM: No focal deficits, tone is normal in all 4 extremities. EXTREMITIES: There is trace peripheral edema. No clubbing, no cyanosis. Peripheral pulses are intact. - Labs CBC & Chem 7: 09/04/24 04:47 09/04/24 04:47 Labs: Abnormal Lab Results - Last 24 Hours (Table) 09/03/24 09/04/24 09/04/24 Range/Units 18:22 04:47 04:47 RBC 3.87 L (4.10-5.20) X 10*6/uL Hct 36.6 L (37.2-46.3) % RDW 14.8 H (11.5-14.5) % Immature Gran # 0.06 H (0.00-0.04) X 10*3/uL Lymphocytes # 0.35 L (0.90-5.00) X 10*3/uL Monocytes # 0.12 L (0.20-1.00) X 10*3/uL Eosinophils # 0 L (0.04-0.35) X 10*3/uL Sodium 134 L (135-145) mmol/L BUN/Creatinine Ratio 22.33 H (12.00-20.00) Ratio Glucose 234 H (70-110) mg/dL POC Glucose (mg/dL) 144 H (70-110) mg/dL Assessment and Plan Assessment: Acute on chronic hypoxemic respiratory failure secondary to pulmonary fibrosis and possible underlying infection. Treated with Levaquin and steroids in the outpatient setting Diarrhea and weakness suspect secondary to antibiotics Lower extremity edema secondary to being off diuretics while having diarrhea Abdominal discomfort suspect secondary to urinary retention. CT scan of the abdomen and pelvis revealed marked pulmonary fibrosis in the visualized lung bases. Distended bladder. Marked bilateral hydronephrosis with obstructing calcification suspected in the distal thirds of both ureters. Marked diverticulosis of the colon without evidence of acute diverticulitis. Haas catheter remains in place with significant urinary output. Abdominal discomfort has resolved. History of oxygen dependent, steroid-dependent pulmonary fibrosis Remote history of DVT Former smoker Plan: The patient was seen and evaluated CT scan, labs and medications reviewed Indwelling catheter in place for bladder distention Responding well to diuretics Urology consulted Currently stable on 2 L nasal cannula Continue Solu-Medrol Continue DuoNeb inhalations as needed Hold off on antibiotics for now DNR CODE STATUS We will continue to follow I have personally seen and examined the patient, performed the documentation and the assessment and plan as written. Number of minutes spent on the visit: 10 Dictation was produced using [employer] dictation software. Please excuse any grammatical, word or spelling errors.
[2024-09-04 21:12] LABS: Glucose,Whole Blood 315 mg/dL (70-110)
--- NOTE | 2024-09-04 22:53 | P.PN ---
Subjective This is a pleasant 84 years old female with past medical history of multiple medical problems as below. Including history of COPD and pulmonary fibrosis and she follow-up with Dr. Villa in the office. Patient presents because of worsening shortness of breath and chest pressure for about 1 week. Also she is complaining from diarrhea which she describes as severe she had 6 bowel movements yesterday and they were loose. While she was in the emergency room she was started complaining from lower abdominal pain about 5/10 in severity felt nonspecific nonradiating that comes and goes. It has more with passing urine not sure if she has dysuria but she has urge to pee nothing coming up. Will check urinalysis was negative. Bladder scan is requested as well. Injury going to check CT of the abdomen and pelvis with contrast orally only no IV contrast. She is complaining from low back pain. She walks using a walker but she got really short of breath and exertional dyspnea She states that she was recently treated for influenza about 2 weeks ago by her PCP with the steroids and antibiotics and she states that antibiotics always make her having diarrhea. She is also have cough and yellow phlegm on and off for the last 2 months. No vomiting no headache dizziness weakness or tingling. She denies smoking alcohol or illicit drugs. She is hemodynamically stable and required 3 to 4 L/min to keep saturation 97. She has unremarkable CBC, BMP LFT INR, troponin. Urinalysis negative. Influenza and COVID test were negative. Magnesium low 1.2. Lactic acid 2.8 which is slightly elevated. proBNP is high 1450. EKG showing sinus rhythm at [address]-T changes. Chest x-ray showing mild pulm lateral pleural effusion left more than right with possible pulmonary congestion Ejection fraction is unknown and echocardiogram is requested as well as C. difficile. She is currently placed on IV Lasix 40 mg twice daily. She continued on home dose of prednisone 5 mg and Plavix. 4/10 Patient abdominal pain resolved after placement of Haas catheter. Currently no abdominal pain no urinary symptoms. Diarrhea improved no bowel movement today. Breathing is better. Urology evaluated the patient She remains on IV Solu-Medrol and IV Lasix 40 mg daily Continued on home dose of Plavix. Echocardiogram reviewed, ejection fraction preserved with 55 to 60% Review of systems CONSTITUTIONAL: No fever, no malaise, no fatigue. GASTROINTESTINAL: No diarrhea, no nausea, no vomiting, no abdominal pain. Normoactive bowel sounds. NEUROLOGICAL: No headaches, no weakness, no numbness. HEMATOLOGICAL: Denies any bleeding or petechiae. Active Medications Generic Name Dose Route Start Last Admin Trade Name Freq PRN Reason Stop Dose Admin Acetaminophen 650 mg 09/03/24 10:27 09/03/24 19:58 Acetaminophen Tab 325 Mg Tab PO 650 mg Q6HR PRN Administration Mild Pain or Fever > 100.5 Hydrocodone Bitart/Acetaminophen 1 each 09/03/24 11:21 09/03/24 11:27 Hydrocodone/Apap 5-325mg 1 Each Tab PO 1 each Q6HR PRN Administration Moderate Pain (Scale 4 to 6) Albuterol/Ipratropium 3 ml 09/03/24 11:28 Ipratropium-Albuterol 3 Ml Neb INHALATION RT-Q2H PRN Shortness Of Breath Or Wheezing Albuterol/Ipratropium 3 ml 09/03/24 12:00 09/04/24 21:13 Ipratropium-Albuterol 3 Ml Neb INHALATION 3 ml RT-QID ZEHRA Administration Alprazolam 0.25 mg 09/03/24 10:59 Alprazolam 0.25 Mg Tab PO DAILY PRN Anxiety Clopidogrel Bisulfate 75 mg 09/04/24 09:00 09/04/24 08:43 Clopidogrel 75 Mg Tab PO 75 mg DAILY ZEHRA Administration Diphenoxylate HCl/Atropine 1 each 09/03/24 10:59 Diphenox-Atrop 2.5-0.025 Mg 1 Each Tab PO HS PRN Diarrhea Furosemide 40 mg 09/04/24 09:00 09/04/24 08:43 Furosemide 10 Mg/Ml 4 Ml Vial IV 40 mg DAILY ZEHRA Administration Heparin Sodium (Porcine) 5,000 unit 09/05/24 09:00 Heparin Sodium,Porcine 5,000 Unit/Ml 1 Ml Vial SQ Q12HR ZEHRA Latanoprost 1 drops 09/03/24 21:00 09/04/24 21:41 Latanoprost 0.005% Ophth Drops 2.5 Ml Btl RIGHT EYE 1 drops HS ZEHRA Administration Levothyroxine Sodium 75 mcg 09/04/24 06:30 09/04/24 05:44 Levothyroxine 75 Mcg Tab PO 75 mcg DAILY@0630 ZEHRA Administration Methylprednisolone Sodium Succinate 40 mg 09/03/24 16:00 09/04/24 15:55 Methylprednisolone Sod Succi 40 Mg/Ml 1 Ml Vial IV 40 mg Q8HR ZEHRA Administration Metoprolol Succinate 25 mg 09/04/24 09:00 09/04/24 08:43 Metoprolol Succinate (Er) 25 Mg Tab.Er.24h PO 25 mg DAILY ZEHRA Administration Miscellaneous Information 1 each 09/03/24 10:09 Magnesium Replacement Protocol 1 Each Misc MISCELLANE DAILY PRN Per Protocol Protocol Morphine Sulfate 4 mg 09/03/24 10:27 09/03/24 15:06 Morphine Sulfate 4 Mg/Ml Syringe IV 4 mg Q4HR PRN Administration Severe Pain (Scale 7 to 10) Naloxone HCl 0.2 mg 09/03/24 10:27 Naloxone 0.4 Mg/Ml 1 Ml Vial IV Q2M PRN Opioid Reversal Ondansetron HCl 4 mg 09/03/24 10:27 Ondansetron 4 Mg/2 Ml Vial IVP Q8HR PRN Nausea And Vomiting Pantoprazole Sodium 40 mg 09/05/24 07:30 Pantoprazole 40 Mg Tablet PO AC-BRKFST ZEHRA Tamsulosin HCl 0.4 mg 09/03/24 18:30 09/04/24 18:33 Tamsulosin 0.4 Mg Cap.Er.24h PO 0.4 mg PC-SUPPER ZEHRA Administration Objective - Vital Signs Vital signs: Vital Signs Temp 98.6 F 09/04/24 07:38 Pulse 100 09/04/24 09:04 Resp 16 09/04/24 08:00 BP 141/74 09/04/24 07:38 Pulse Ox 100 09/04/24 08:54 FiO2 Intake & Output 09/03/24 09/04/24 09/04/24 18:59 06:59 18:59 Intake Total 30 Output Total 800 1100 2950 Balance -800 -1100 -2920 Weight 68.946 kg 68.946 kg Intake: IV 30 Invasive Line 2 30 Output: Urine 800 1100 2950 Uretheral (Haas) 1100 Other: Voiding Method Indwelling Catheter Indwelling Catheter # Voids 1 # Bowel Movements 2 - Exam GENERAL: The patient is alert and oriented x3, not in any acute distress. Well developed, well nourished. HEENT: Pupils are round and equally reacting to light. EOMI. No scleral icterus. No conjunctival pallor. Normocephalic, atraumatic. No pharyngeal erythema. No thyromegaly. CARDIOVASCULAR: S1 and S2 present. No murmurs, rubs, or gallops. -PULMONARY: Chest is clear to auscultation, no wheezing , bilateral basal crackles. Tachypnea -ABDOMEN: Soft, lower abdominal tenderness r, nondistended, normoactive bowel sounds. No palpable organomegaly. MUSCULOSKELETAL: No joint swelling or deformity. EXTREMITIES: No cyanosis, clubbing, or pedal edema. NEUROLOGICAL: Gross neurological examination did not reveal any focal deficits. SKIN: No rashes. no petechiae. - Labs CBC & Chem 7: 09/04/24 04:47 09/04/24 04:47 Labs: Abnormal Lab Results - Last 24 Hours (Table) 09/03/24 09/04/24 09/04/24 Range/Units 18:22 04:47 04:47 RBC 3.87 L (4.10-5.20) X 10*6/uL Hct 36.6 L (37.2-46.3) % RDW 14.8 H (11.5-14.5) % Immature Gran # 0.06 H (0.00-0.04) X 10*3/uL Lymphocytes # 0.35 L (0.90-5.00) X 10*3/uL Monocytes # 0.12 L (0.20-1.00) X 10*3/uL Eosinophils # 0 L (0.04-0.35) X 10*3/uL Sodium 134 L (135-145) mmol/L BUN/Creatinine Ratio 22.33 H (12.00-20.00) Ratio Glucose 234 H (70-110) mg/dL POC Glucose (mg/dL) 144 H (70-110) mg/dL Assessment and Plan Assessment: Acute CHF exacerbation, pulmonary congestion acute COPD Acute urinary retention with bilateral hydronephrosis, improved with insertion of Haas catheter pulmonary fibrosis Diarrhea, rule out C. difficile with lower abdominal pain.improved Mildly elevated lactic acid, resolved Hypomagnesemia Recent diagnosis with influenza treated with antibiotics and steroids. History of DVT Gastroesophageal reflux disease Hypertension Osteoarthritis Hypothyroidism. History of pelvic inflammatory disease. History of diarrhea History of anemia. S/p cholecystectomy Plan: Continue with IV Lasix 40 mg once daily Continue with Plavix and prednisone 5 mg Replace magnesium and monitor electrolytes Diarrhea improved CT of the abdomen showed bilateral hydronephrosis, Haas catheter placed urinary retention urology team were consulted Echocardiogram showed preserved ejection fraction Pulmonary team consult Labs and medication were reviewed.. Continue same treatment. Continue with symptomatic treatment. Resume home medication. Monitor labs and vitals. DVT and GI prophylaxis. Further recommendations as per clinical course of the patient DVT prophylaxis: Subcutaneous heparin GI Prophylaxis: Protonix PT/OT: Pending Prognosis is guarded
[2024-09-05 06:35] LABS: Glucose,Whole Blood 212 mg/dL (70-110)
[2024-09-05] MEDS: HEPARIN SODIUM,PORCINE 5,000 UNIT/ML 1 ML VIAL SQ SCH (08:29)
[2024-09-05] MEDS: PANTOPRAZOLE 40 MG TABLET PO SCH (08:29)
--- NOTE | 2024-09-05 08:53 | CDI ---
Documentation Clarification Form Date: 09/05/2024 08:30:37 AM From: Ericka Lujan RN CCDS Phone: [phone] Admit Date: 09/03/2024 10:24:00 AM Patient Name: Jeannie Esparza Visit Number: [id number] Discharge Date: ATTENTION: The Clinical Documentation Specialists (CDI) and [facility] Coding Staff appreciate your assistance in clarifying documentation. Please respond to the clarification below the line at the bottom and electronically sign. The CDI & [facility] Coding staff will review the response and follow-up if needed. Please note: Queries are made part of the Legal Health Record. If you have any questions, please contact the author of this message via ITS. Doctor: El E Sheet Your patient has the documented diagnosis of unspecified CHF 09/04, Medicine note. Additional information regarding the type of CHF is requested. History/Risk Factors: 84 year old female presents to the ED with worsening shortness of breath and chest pressure for about one week. Medical History COPD with pulmonary fibrosis. DM. COPD. DVT. HTN and Thyroid disorder. Clinical Indicators: VS/Pulse OX, 09/03: B/P 148/80; HR 79; Temp 97.1F Oral; RR 18; SpO2 4L nc BNP, 09/03: 1450 Echocardiogram Results, 09/03: EF 55-60% Moderate to severe pulmonary hypertension. Mild to mitral regurgitation. Chest X Ray, 09/03: The heart size is enlarged. The pulmonary vasculature is prominent. Diffuse increased lung markings are present likely on the basis of pulmonary edema. Treatment: 09/03 Lasix 40mg IV x 1; 09/04 Lasix 40mg IV Daily, 09/04 Toprol Xl 25mg PO Daily In your professional opinion, can you please clarify the type of CHF if known? [ x ] Acute on Chronic Diastolic Heart Failure (preserved EF) [ ] Other, please specify [ ] Unable to determine (Template Last Revised: June 2020) MTDD
[2024-09-05 11:46] LABS: Glucose,Whole Blood 279 mg/dL (70-110)
[2024-09-05] MEDS ORDERED: DEXTROSE 50% SYRINGE 50 ML IVP PRN ×2 (12:26)
[2024-09-05] MEDS: INSULIN LISPRO (HumaLOG) 100 UNIT/ML 10 mL VL SQ SCH (13:27)
--- NOTE | 2024-09-05 13:40 | P.PN ---
Subjective Progress Note Date: 09/05/24 This is an 84-year-old female patient with a known history of diabetes mellitus, DVT, hypertension, hypothyroidism, gastroesophageal reflux disease, former smoker and oxygen dependent, steroid-dependent pulmonary fibrosis and follows with Dr. Kirkland in our office. She had seen him recently for increasing shortness of breath and was placed on Levaquin and a prednisone taper. She did develop diarrhea over the past couple days. She has been quite weak and shaky and feeling more short of breath. He also had complaints of increased edema of the lower extremities as she was taken off her Lasix due to the diarrhea and presented here to the emergency room this morning. Chest x-ray shows evidence of pulmonary fibrosis. White count 9.7. Hemoglobin 12.9. Platelets 218. Sodium 135. Potassium 3.5. Bicarb 24. BUN 15. Creatinine 0.52. Glucose 159. AST 20. ALT 13. Troponin negative x 1. proBNP 1450. Urinalysis clean. Viral screen negative. She is seen today in consultation in the emergency department. She is currently sitting up on a stretcher. Awake and alert in no acute distress. She is maintaining O2 saturations in the 90s on 3 L/min per nasal cannula. She is afebrile. Hemodynamically stable. The patient was seen today September 04, 2024 in follow-up on the regular medical vt oor. She is currently sitting up in bed. Awake and alert in no acute distress. Feeling better today compared to yesterday. Maintaining O2 saturations in the 90s on 2 L/min per nasal cannula. She has been afebrile. Hemodynamically stable. She is diuresing well currently in a -1.9 L balance. White count 6.4. Hemoglobin 12.1. Platelets 209. Sodium 134. Potassium 4.6. Bicarb 30. BUN 13. Creatinine 0.6. Glucose 232. Urinalysis clean. She is continued on Lasix 40 mg IV daily. Continued on Solu-Medrol and bronchodilators. CT scan of the abdomen and pelvis revealed marked pulmonary fibrosis in the visualized lung bases. Distended bladder. Marked bilateral hydronephrosis with obstructing calcification suspected in the distal thirds of both ureters. Marked diverticulosis of the colon without evidence of acute diverticulitis. Haas catheter remains in place with significant urinary output. Abdominal discomfort has resolved. The patient is seen today September 05, 2024 in follow-up on the regular medical floor. She is awake and alert in no acute distress. Breathing easier today compared to yesterday. Maintaining good O2 saturations in the 90s on 3 L/min per nasal cannula. She was having issues with urinary retention. Haas catheter remains in place. She had been seen by urology. She remains on DuoNeb inhalations, Solu-Medrol. Remains on IV diuretics. Heparin for DVT prophylaxis. She is on Flomax. Currently in a -4.4 L balance. Glucose 279. Objective - Vital Signs Vital signs: Vital Signs Temp 97.3 F L 09/05/24 07:09 Pulse 77 09/05/24 12:33 Resp 17 09/05/24 07:09 BP 134/83 09/05/24 07:09 Pulse Ox 97 09/05/24 09:44 FiO2 Intake & Output 09/04/24 09/05/24 09/05/24 18:59 06:59 18:59 Intake Total 30 10 Output Total 3250 1225 1425 Balance -3220 -1225 -1415 Intake: IV 30 10 Invasive Line 2 30 10 Output: Urine 3250 1225 1425 Other: Voiding Method Indwelling Catheter Indwelling Catheter Indwelling Catheter # Voids 1 # Bowel Movements 2 - Exam GENERAL EXAM: Alert, 84-year-old female, sitting up in bed, on 3 L nasal cannula, in no apparent distress. HEAD: Normocephalic. EYES: Normal reaction of pupils, equal size. NOSE: Clear with pink turbinates. THROAT: No erythema or exudates. NECK: No masses, no JVD. CHEST: No chest wall deformity. LUNGS: Equal air entry with Velcro crackles in the bilateral bases. CVS: S1 and S2 normal with no audible murmur, regular rhythm. ABDOMEN: No hepatosplenomegaly, normal bowel sounds, no guarding or rigidity. SPINE: No scoliosis or deformity SKIN: No rashes CENTRAL NERVOUS SYSTEM: No focal deficits, tone is normal in all 4 extremities. EXTREMITIES: There is trace peripheral edema. No clubbing, no cyanosis. Peripheral pulses are intact. - Labs CBC & Chem 7: 09/04/24 04:47 09/04/24 04:47 Labs: Abnormal Lab Results - Last 24 Hours (Table) 09/04/24 09/05/24 09/05/24 Range/Units 21:10 06:29 11:43 POC Glucose (mg/dL) 315 H 212 H 279 H (70-110) mg/dL Assessment and Plan Assessment: Acute on chronic hypoxemic respiratory failure secondary to pulmonary fibrosis and possible underlying infection. Treated with Levaquin and steroids in the outpatient setting Diarrhea and weakness suspect secondary to antibiotics Lower extremity edema secondary to being off diuretics while having diarrhea Abdominal discomfort suspect secondary to urinary retention. CT scan of the abdomen and pelvis revealed marked pulmonary fibrosis in the visualized lung bases. Distended bladder. Marked bilateral hydronephrosis with obstructing calcification suspected in the distal thirds of both ureters. Marked diverticulosis of the colon without evidence of acute diverticulitis. Haas catheter remains in place with significant urinary output. Abdominal discomfort has resolved. History of oxygen dependent, steroid-dependent pulmonary fibrosis Remote history of DVT Former smoker Plan: The patient was seen and evaluated Labs and medications reviewed Indwelling catheter in place Responding well to diuretics Currently in a -4.4 L balance Currently stable on 3 L nasal cannula Discontinue Solu-Medrol Initiate a prednisone taper Continue DuoNeb inhalations We will continue to follow I have personally seen and examined the patient, performed the documentation and the assessment and plan as written. Number of minutes spent on the visit: 10 Dictation was produced using [employer] dictation software. Please excuse any grammatical, word or spelling errors.
[2024-09-05 16:52] LABS: Glucose,Whole Blood 257 mg/dL (70-110)
[2024-09-05 20:31] LABS: Glucose,Whole Blood 193 mg/dL (70-110)
[2024-09-06 06:11] LABS: Glucose,Whole Blood 148 mg/dL (70-110)
[2024-09-06] MEDS: predniSONE 20 MG TAB PO SCH (08:07)
[2024-09-06 09:46] LABS: BUN/Creat Ratio 35.14 Ratio (12.00-20.00); Blood Urea Nitrogen 24.6 mg/dL (9.0-27.0); Calcium 8.8 mg/dL (8.7-10.3); Carbon Dioxide 32.3 mmol/L (21.6-31.8); Chloride 93 mmol/L (96-109); Glucose 148 mg/dL (70-110); Potassium 4.4 mmol/L (3.5-5.5); Sodium 134 mmol/L (135-145)
--- NOTE | 2024-09-06 10:32 | P.PN ---
Subjective Progress Note Date: 09/06/24 The patient is in the hospital with shortness of breath due to pulmonary fibrosis and perhaps congestive failure. She had lower extremity edema that was significant. She had urine retention. She still has an indwelling catheter. Objective - Vital Signs Vital signs: Vital Signs Temp 97.9 F 09/06/24 07:00 Pulse 76 09/06/24 09:32 Resp 18 09/06/24 07:00 BP 111/69 09/06/24 07:00 Pulse Ox 98 09/06/24 07:00 FiO2 Intake & Output 09/05/24 09/06/24 09/06/24 18:59 06:59 18:59 Intake Total 10 Output Total 1825 1025 1100 Balance -1815 -1025 -1100 Intake: IV 10 Invasive Line 2 10 Output: Urine 1825 1025 1100 Uretheral (Haas) 1100 Other: Voiding Method Indwelling Catheter Indwelling Catheter Indwelling Catheter # Bowel Movements 1 - Labs CBC & Chem 7: 09/04/24 04:47 09/06/24 04:05 Labs: Abnormal Lab Results - Last 24 Hours (Table) 09/05/24 09/05/24 09/05/24 Range/Units 11:43 16:51 20:30 Sodium (135-145) mmol/L Chloride (96-109) mmol/L Carbon Dioxide (21.6-31.8) mmol/L BUN/Creatinine Ratio (12.00-20.00) Ratio Glucose (70-110) mg/dL POC Glucose (mg/dL) 279 H 257 H 193 H (70-110) mg/dL Hemoglobin A1c (<=6.0) % 09/06/24 09/06/24 09/06/24 Range/Units 04:05 04:05 06:10 Sodium 134 L (135-145) mmol/L Chloride 93 L (96-109) mmol/L Carbon Dioxide 32.3 H (21.6-31.8) mmol/L BUN/Creatinine Ratio 35.14 H (12.00-20.00) Ratio Glucose 148 H (70-110) mg/dL POC Glucose (mg/dL) 148 H (70-110) mg/dL Hemoglobin A1c 6.9 H (<=6.0) % Assessment and Plan Assessment: Impression: Urinary retention probably secondary to active diuresis from congestive failure Recommendations: When the patient is close to being discharged, her edema is minimal and she is ambulatory the catheter should be removed for a voiding tr ial.
[2024-09-06 11:37] LABS: Glucose,Whole Blood 287 mg/dL (70-110)
--- NOTE | 2024-09-06 12:34 | P.PN ---
Subjective Progress Note Date: 09/06/24 This is an 84-year-old female patient with a known history of diabetes mellitus, DVT, hypertension, hypothyroidism, gastroesophageal reflux disease, former smoker and oxygen dependent, steroid-dependent pulmonary fibrosis and follows with Dr. Kirkland in our office. She had seen him recently for increasing shortness of breath and was placed on Levaquin and a prednisone taper. She did develop diarrhea over the past couple days. She has been quite weak and shaky and feeling more short of breath. He also had complaints of increased edema of the lower extremities as she was taken off her Lasix due to the diarrhea and presented here to the emergency room this morning. Chest x-ray shows evidence of pulmonary fibrosis. White count 9.7. Hemoglobin 12.9. Platelets 218. Sodium 135. Potassium 3.5. Bicarb 24. BUN 15. Creatinine 0.52. Glucose 159. AST 20. ALT 13. Troponin negative x 1. proBNP 1450. Urinalysis clean. Viral screen negative. She is seen today in consultation in the emergency department. She is currently sitting up on a stretcher. Awake and alert in no acute distress. She is maintaining O2 saturations in the 90s on 3 L/min per nasal cannula. She is afebrile. Hemodynamically stable. The patient was seen today September 04, 2024 in follow-up on the regular medical [place]. She is currently sitting up in bed. Awake and alert in no acute distress. Feeling better today compared to yesterday. Maintaining O2 saturations in the 90s on 2 L/min per nasal cannula. She has been afebrile. Hemodynamically stable. She is diuresing well currently in a -1.9 L balance. White count 6.4. Hemoglobin 12.1. Platelets 209. Sodium 134. Potassium 4.6. Bicarb 30. BUN 13. Creatinine 0.6. Glucose 232. Urinalysis clean. She is continued on Lasix 40 mg IV daily. Continued on Solu-Medrol and bronchodilators. CT scan of the abdomen and pelvis revealed marked pulmonary fibrosis in the visualized lung bases. Distended bladder. Marked bilateral hydronephrosis with obstructing calcification suspected in the distal thirds of both ureters. Marked diverticulosis of the colon without evidence of acute diverticulitis. Haas catheter remains in place with significant urinary output. Abdominal discomfort has resolved. The patient is seen today September 05, 2024 in follow-up on the regular medical floor. She is awake and alert in no acute distress. Breathing easier today compared to yesterday. Maintaining good O2 saturations in the 90s on 3 L/min per nasal cannula. She was having issues with urinary retention. Haas catheter remains in place. She had been seen by urology. She remains on DuoNeb inhalations, Solu-Medrol. Remains on IV diuretics. Heparin for DVT prophylaxis. She is on Flomax. Currently in a -4.4 L balance. Glucose 279. The patient is seen today September 06, 2024 in follow-up on the regular medical floor. She is currently sitting up in bed. Awake and alert in no acute distress. Breathing easier today compared to yesterday. She is maintaining O2 saturations in the 90s on 3 L/min per nasal cannula. Sodium 134. Potassium 4.4. Bicarb 32. BUN 25. Creatinine 0.7. Glucose 148. Hemoglobin A1c 6.9. She remains on DuoNeb inhalations and Solu-Medrol. She remains on IV diuretics. Heparin for DVT prophylaxis. Haas catheter remains in place. Currently in a -2.8 L balance. Objective - Vital Signs Vital signs: Vital Signs Temp 97.9 F 09/06/24 07:00 Pulse 80 09/06/24 12:21 Resp 18 09/06/24 07:00 BP 111/69 09/06/24 07:00 Pulse Ox 98 09/06/24 07:00 FiO2 Intake & Output 09/05/24 09/06/24 09/06/24 18:59 06:59 18:59 Intake Total 10 Output Total 1825 1025 1100 Balance -1815 -1025 -1100 Intake: IV 10 Invasive Line 2 10 Output: Urine 1825 1025 1100 Uretheral (Haas) 1100 Other: Voiding Method Indwelling Catheter Indwelling Catheter Indwelling Catheter # Bowel Movements 1 - Exam GENERAL EXAM: Alert, very pleasant 84-year-old female, sitting up in bed, on 3 L nasal cannula, in no apparent distress. HEAD: Normocephalic. EYES: Normal reaction of pupils, equal size. NOSE: Clear with pink turbinates. THROAT: No erythema or exudates. NECK: No masses, no JVD. CHEST: No chest wall deformity. LUNGS: Equal air entry with Velcro crackles in the bilateral bases. CVS: S1 and S2 normal with no audible murmur, regular rhythm. ABDOMEN: No hepatosplenomegaly, normal bowel sounds, no guarding or rigidity. SPINE: No scoliosis or deformity SKIN: No rashes CENTRAL NERVOUS SYSTEM: No focal deficits, tone is normal in all 4 extremities. EXTREMITIES: There is trace peripheral edema. No clubbing, no cyanosis. Peripheral pulses are intact. - Labs CBC & Chem 7: 09/04/24 04:47 09/06/24 04:05 Labs: Abnormal Lab Results - Last 24 Hours (Table) 09/05/24 09/05/24 09/06/24 Range/Units 16:51 20:30 04:05 Sodium (135-145) mmol/L Chloride (96-109) mmol/L Carbon Dioxide (21.6-31.8) mmol/L BUN/Creatinine Ratio (12.00-20.00) Ratio Glucose (70-110) mg/dL POC Glucose (mg/dL) 257 H 193 H (70-110) mg/dL Hemoglobin A1c 6.9 H (<=6.0) % 09/06/24 09/06/24 09/06/24 Range/Units 04:05 06:10 11:33 Sodium 134 L (135-145) mmol/L Chloride 93 L (96-109) mmol/L Carbon Dioxide 32.3 H (21.6-31.8) mmol/L BUN/Creatinine Ratio 35.14 H (12.00-20.00) Ratio Glucose 148 H (70-110) mg/dL POC Glucose (mg/dL) 148 H 287 H (70-110) mg/dL Hemoglobin A1c (<=6.0) % Assessment and Plan Assessment: Acute on chronic hypoxemic respiratory failure secondary to pulmonary fibrosis and possible fluid volume overload. Treated with Levaquin and steroids in the outpatient setting Diarrhea and weakness suspect secondary to antibiotics Lower extremity edema secondary to being off diuretics while having diarrhea Abdominal discomfort suspect secondary to urinary retention. CT scan of the abdomen and pelvis revealed marked pulmonary fibrosis in the visualized lung bases. Distended bladder. Marked bilateral hydronephrosis with obstructing calcification suspected in the distal thirds of both ureters. Marked diverticulosis of the colon without evidence of acute diverticulitis. Haas catheter remains in place with significant urinary output. Abdominal discomfort has resolved. History of oxygen dependent, steroid-dependent pulmonary fibrosis Remote history of DVT Former smoker Plan: The patient was seen and evaluated Labs and medications reviewed Indwelling catheter in place Responding well to diuretics Currently in a -2.8 L balance Plan is to remove the better Evaluate for ability to void Urology is following Currently stable on 3 L nasal cannula Continue prednisone taper Continue DuoNeb inhalations Increase her activity as tolerated We will continue to follow I have personally seen and examined the patient, performed the documentation and the assessment and plan as written. Number of minutes spent on the visit: 10 Dictation was produced using [employer] dictation software. Please excuse any grammatical, word or spelling errors.
[2024-09-06 16:40] LABS: Glucose,Whole Blood 253 mg/dL (70-110)
[2024-09-06 20:05] LABS: Glucose,Whole Blood 199 mg/dL (70-110)
--- NOTE | 2024-09-06 22:06 | P.PN ---
Subjective Progress Note Date: 09/05/24 84 years old female with past medical history of multiple medical problems as below. Including history of COPD and pulmonary fibrosis and she follow-up with Dr. Villa in the office. Patient presents because of worsening shortness of breath and chest pressure for about 1 week. Also she is complaining from diarrhea which she describes as severe she had 6 bowel movements yesterday and they were loose. While she was in the emergency room she was started complaining from lower abdominal pain about 5/10 in severity felt nonspecific nonradiating that comes and goes. It has more with passing urine not sure if she has dysuria but she has urge to pee nothing coming up. Will check urinalysis was negative. Bladder scan is requested as well. Injury going to check CT of the abdomen and pelvis with contrast orally only no IV contrast. She is complaining from low back pain. She walks using a walker but she got really short of breath and exertional dyspnea She states that she was recently treated for influenza about 2 weeks ago by her PCP with the steroids and antibiotics and she states that antibiotics always make her having diarrhea. She is also have cough and yellow phlegm on and off for the last 2 months. No vomiting no headache dizziness weakness or tingling. She denies smoking alcohol or illicit drugs. She is hemodynamically stable and required 3 to 4 L/min to keep saturation 97. She has unremarkable CBC, BMP LFT INR, troponin. Urinalysis negative. Influenza and COVID test were negative. Magnesium low 1.2. Lactic acid 2.8 which is slightly elevated. proBNP is high 1450. EKG showing sinus rhythm at [address]-T changes. Chest x-ray showing mild pulm lateral pleural effusion left more than right with possible pulmonary congestion Ejection fraction is unknown and echocardiogram is requested as well as C. difficile. She is currently placed on IV Lasix 40 mg twice daily. She continued on home dose of prednisone 5 mg and Plavix. Objective - Vital Signs Vital signs: Vital Signs Temp 97.3 F L 09/05/24 07:09 Pulse 77 09/05/24 12:33 Resp 17 09/05/24 07:09 BP 134/83 09/05/24 07:09 Pulse Ox 97 09/05/24 09:44 FiO2 Intake & Output 09/04/24 09/05/24 09/05/24 18:59 06:59 18:59 Intake Total 30 10 Output Total 3250 1225 1425 Balance -0376 -3387 -1210 Intake: IV 30 10 Invasive Line 2 30 10 Output: Urine 3250 1225 1425 Other: Voiding Method Indwelling Catheter Indwelling Catheter Indwelling Catheter # Voids 1 # Bowel Movements 2 - Exam GENERAL: The patient is alert and oriented x3, not in any acute distress. Well developed, well nourished. HEENT: Pupils are round and equally reacting to light. EOMI. No scleral icterus. No conjunctival pallor. Normocephalic, atraumatic. No pharyngeal erythema. No thyromegaly. CARDIOVASCULAR: S1 and S2 present. No murmurs, rubs, or gallops. -PULMONARY: Chest is clear to auscultation, no wheezing , bilateral basal crackles. Tachypnea -ABDOMEN: Soft, lower abdominal tenderness r, nondistended, normoactive bowel sounds. No palpable organomegaly. MUSCULOSKELETAL: No joint swelling or deformity. EXTREMITIES: No cyanosis, clubbing, or pedal edema. NEUROLOGICAL: Gross neurological examination did not reveal any focal deficits. SKIN: No rashes. no petechiae. - Labs CBC & Chem 7: 09/04/24 04:47 09/06/24 04:05 Labs: Abnormal Lab Results - Last 24 Hours (Table) 09/04/24 09/05/24 09/05/24 Range/Units 21:10 06:29 11:43 POC Glucose (mg/dL) 315 H 212 H 279 H (70-110) mg/dL Assessment and Plan Assessment: Acute CHF exacerbation, pulmonary congestion acute COPD Acute urinary retention with bilateral hydronephrosis, improved with insertion of Haas catheter pulmonary fibrosis Diarrhea, rule out C. difficile with lower abdominal pain.improved Mildly elevated lactic acid, resolved Hypomagnesemia Recent diagnosis with influenza treated with antibiotics and steroids. History of DVT Gastroesophageal reflux disease Hypertension Osteoarthritis Hypothyroidism. History of pelvic inflammatory disease. History of diarrhea History of anemia. S/p cholecystectomy Plan: Continue with IV Lasix 40 mg once daily Continue with Plavix and prednisone 5 mg Replace magnesium and monitor electrolytes Diarrhea improved CT of the abdomen showed bilateral hydronephrosis, Haas catheter placed urinary retention urology team were consulted Echocardiogram showed preserved ejection fraction Pulmonary team consult Labs and medication were reviewed.. Continue same treatment. Continue with symptomatic treatment. Resume home medication. Monitor labs and vitals. DVT and GI prophylaxis. Further recommendations as per clinical course of the patient DVT prophylaxis: Subcutaneous heparin GI Prophylaxis: Protonix PT/OT: Pending Prognosis is guarded
--- NOTE | 2024-09-06 22:09 | P.PN ---
Subjective Progress Note Date: 09/06/24 84 years old female with past medical history of multiple medical problems as below. Including history of COPD and pulmonary fibrosis and she follow-up with Dr. Villa in the office. Patient presents because of worsening shortness of breath and chest pressure for about 1 week. Also she is complaining from diarrhea which she describes as severe she had 6 bowel movements yesterday and they were loose. While she was in the emergency room she was started complaining from lower abdominal pain about 5/10 in severity felt nonspecific nonradiating that comes and goes. It has more with passing urine not sure if she has dysuria but she has urge to pee nothing coming up. Will check urinalysis was negative. Bladder scan is requested as well. Injury going to check CT of the abdomen and pelvis with contrast orally only no IV contrast. She is complaining from low back pain. She walks using a walker but she got really short of breath and exertional dyspnea She states that she was recently treated for influenza about 2 weeks ago by her PCP with the steroids and antibiotics and she states that antibiotics always make her having diarrhea. She is also have cough and yellow phlegm on and off for the last 2 months. No vomiting no headache dizziness weakness or tingling. She denies smoking alcohol or illicit drugs. She is hemodynamically stable and required 3 to 4 L/min to keep saturation 97. She has unremarkable CBC, BMP LFT INR, troponin. Urinalysis negative. Influenza and COVID test were negative. Magnesium low 1.2. Lactic acid 2.8 which is slightly elevated. proBNP is high 1450. EKG showing sinus rhythm at [address]-T changes. Chest x-ray showing mild pulm lateral pleural effusion left more than right with possible pulmonary congestion Ejection fraction is unknown and echocardiogram is requested as well as C. difficile. She is currently placed on IV Lasix 40 mg twice daily. She continued on home dose of prednisone 5 mg and Plavix. 09/06/2024 Patient is seen and evaluated in follow-up on the regular medical floor. She is currently sitting up in bed. Awake and alert in no acute distress. Breathing easier today compared to yesterday. She is maintaining O2 saturations in the 90s on 3 L/min per nasal cannula. Sodium 134. Potassium 4.4. Bicarb 32. BUN 25. Creatinine 0.7. Glucose 148. Hemoglobin A1c 6.9. She remains on DuoNeb i nhalations and Solu-Medrol. She remains on IV diuretics. Heparin for DVT prophylaxis. Haas catheter remains in place. Currently in a -2.8 L balance. Objective - Vital Signs Vital signs: Vital Signs Temp 98.4 F 09/06/24 13:22 Pulse 84 09/06/24 13:22 Resp 18 09/06/24 13:22 BP 109/71 09/06/24 13:22 Pulse Ox 96 09/06/24 13:22 FiO2 Intake & Output 09/05/24 09/06/24 09/06/24 18:59 06:59 18:59 Intake Total 10 Output Total 1825 1025 2100 Balance -1814 -2099 Intake: IV 10 Invasive Line 2 10 Output: Urine 1824 1025 2100 Uretheral (Haas) 2100 Other: Voiding Method Indwelling Catheter Indwelling Catheter Indwelling Catheter # Bowel Movements 1 - Exam GENERAL: The patient is alert and oriented x3, not in any acute distress. Well developed, well nourished. HEENT: Pupils are round and equally reacting to light. EOMI. No scleral icterus. No conjunctival pallor. Normocephalic, atraumatic. No pharyngeal erythema. No thyromegaly. CARDIOVASCULAR: S1 and S2 present. No murmurs, rubs, or gallops. -PULMONARY: Chest is clear to auscultation, no wheezing , bilateral basal crackles. Tachypnea -ABDOMEN: Soft, lower abdominal tenderness r, nondistended, normoactive bowel sounds. No palpable organomegaly. MUSCULOSKELETAL: No joint swelling or deformity. EXTREMITIES: No cyanosis, clubbing, or pedal edema. NEUROLOGICAL: Gross neurological examination did not reveal any focal deficits. SKIN: No rashes. no petechiae. - Labs CBC & Chem 7: 09/04/24 04:47 09/06/24 04:05 Labs: Abnormal Lab Results - Last 24 Hours (Table) 09/05/24 09/05/24 09/06/24 Range/Units 16:51 20:30 04:05 Sodium (135-145) mmol/L Chloride (96-109) mmol/L Carbon Dioxide (21.6-31.8) mmol/L BUN/Creatinine Ratio (12.00-20.00) Ratio Glucose (70-110) mg/dL POC Glucose (mg/dL) 257 H 193 H (70-110) mg/dL Hemoglobin A1c 6.9 H (<=6.0) % 09/06/24 09/06/24 09/06/24 Range/Units 04:05 06:10 11:33 Sodium 134 L (135-145) mmol/L Chloride 93 L (96-109) mmol/L Carbon Dioxide 32.3 H (21.6-31.8) mmol/L BUN/Creatinine Ratio 35.14 H (12.00-20.00) Ratio Glucose 148 H (70-110) mg/dL POC Glucose (mg/dL) 148 H 287 H (70-110) mg/dL Hemoglobin A1c (<=6.0) % Assessment and Plan Assessment: Acute CHF exacerbation, pulmonary congestion acute COPD Acute urinary retention with bilateral hydronephrosis, improved with insertion of Haas catheter pulmonary fibrosis Diarrhea, rule out C. difficile with lower abdominal pain.improved Mildly elevated lactic acid, resolved Hypomagnesemia Recent diagnosis with influenza treated with antibiotics and steroids. History of DVT Gastroesophageal reflux disease Hypertension Osteoarthritis Hypothyroidism. History of pelvic inflammatory disease. History of diarrhea History of anemia. S/p cholecystectomy Plan: Continue with IV Lasix 40 mg once daily Continue with Plavix and prednisone 5 mg Replace magnesium and monitor electrolytes Diarrhea improved CT of the abdomen showed bilateral hydronephrosis, Haas catheter placed urinary retention urology team were consulted Echocardiogram showed preserved ejection fraction Pulmonary team consult Labs and medication were reviewed.. Continue same treatment. Continue with symptomatic treatment. Resume home medication. Monitor labs and vitals. DVT and GI prophylaxis. Further recommendations as per clinical course of the patient DVT prophylaxis: Subcutaneous heparin GI Prophylaxis: Protonix PT/OT: Pending Prognosis is guarded
[2024-09-07 06:03] LABS: Glucose,Whole Blood 136 mg/dL (70-110)
[2024-09-07 09:35] LABS: Blood Urea Nitrogen 24.6 mg/dL (9.0-27.0); Calcium 8.9 mg/dL (8.7-10.3); Carbon Dioxide 33.1 mmol/L (21.6-31.8); Chloride 92 mmol/L (96-109); Glucose 153 mg/dL (70-110); Potassium 4.1 mmol/L (3.5-5.5); Sodium 133 mmol/L (135-145)
[2024-09-07 10:04] LABS: Basophils # (A) 0.03 X 10*3/uL (0.00-0.10); Basophils % (A) 0.4 %; Eosinophils # (A) 0.01 X 10*3/uL (0.04-0.35); Eosinophils % (A) 0.1 %; HCT 37.2 % (37.2-46.3); HGB 11.9 g/dL (12.0-15.0); Lymphocytes # (A) 1.46 X 10*3/uL (0.90-5.00); Lymphocytes % (A) 21.1 %; MCH 30.6 pg (27.0-32.0); MCV 95.6 FL (80.0-97.0); Mean Platelet Volume 10.2 FL (9.5-12.2); Monocytes # (A) 0.57 X 10*3/uL (0.20-1.00); Monocytes % (A) 8.2 %; NRBC Per 100 WBC 0 X 10*3/uL (0.00-0.01); Neutrophils # (A) 4.75 X 10*3/uL (1.80-7.70); Neutrophils % (A) 68.8 %; Platelet Count 204 X 10*3/uL (140-440); RBC 3.89 X 10*6/uL (4.10-5.20); RDW 14.3 % (11.5-14.5); WBC 6.92 X 10*3/uL (4.50-10.00)
--- NOTE | 2024-09-07 11:21 | P.PN ---
Subjective Progress Note Date: 09/07/24 This is an 84-year-old female patient with a known history of diabetes mellitus, DVT, hypertension, hypothyroidism, gastroesophageal reflux disease, former smoker and oxygen dependent, steroid-dependent pulmonary fibrosis and follows with Dr. Kirkland in our office. She had seen him recently for increasing shortness of breath and was placed on Levaquin and a prednisone taper. She did develop diarrhea over the past couple days. She has been quite weak and shaky and feeling more short of breath. He also had complaints of increased edema of the lower extremities as she was taken off her Lasix due to the diarrhea and presented here to the emergency room this morning. Chest x-ray shows evidence of pulmonary fibrosis. White count 9.7. Hemoglobin 12.9. Platelets 218. Sodium 135. Potassium 3.5. Bicarb 24. BUN 15. Creatinine 0.52. Glucose 159. AST 20. ALT 13. Troponin negative x 1. proBNP 1450. Urinalysis clean. Viral screen negative. She is seen today in consultation in the emergency department. She is currently sitting up on a stretcher. Awake and alert in no acute distress. She is maintaining O2 saturations in the 90s on 3 L/min per nasal cannula. She is afebrile. Hemodynamically stable. The patient was seen today September 04, 2024 in follow-up on the regular medical al oor. She is currently sitting up in bed. Awake and alert in no acute distress. Feeling better today compared to yesterday. Maintaining O2 saturations in the 90s on 2 L/min per nasal cannula. She has been afebrile. Hemodynamically stable. She is diuresing well currently in a -1.9 L balance. White count 6.4. Hemoglobin 12.1. Platelets 209. Sodium 134. Potassium 4.6. Bicarb 30. BUN 13. Creatinine 0.6. Glucose 232. Urinalysis clean. She is continued on Lasix 40 mg IV daily. Continued on Solu-Medrol and bronchodilators. CT scan of the abdomen and pelvis revealed marked pulmonary fibrosis in the visualized lung bases. Distended bladder. Marked bilateral hydronephrosis with obstructing calcification suspected in the distal thirds of both ureters. Marked diverticulosis of the colon without evidence of acute diverticulitis. Haas catheter remains in place with significant urinary output. Abdominal discomfort has resolved. The patient is seen today September 05, 2024 in follow-up on the regular medical floor. She is awake and alert in no acute distress. Breathing easier today compared to yesterday. Maintaining good O2 saturations in the 90s on 3 L/min per nasal cannula. She was having issues with urinary retention. Haas catheter remains in place. She had been seen by urology. She remains on DuoNeb inhalations, Solu-Medrol. Remains on IV diuretics. Heparin for DVT prophylaxis. She is on Flomax. Currently in a -4.4 L balance. Glucose 279. The patient is seen today September 06, 2024 in follow-up on the regular medical floor. She is currently sitting up in bed. Awake and alert in no acute distress. Breathing easier today compared to yesterday. She is maintaining O2 saturations in the 90s on 3 L/min per nasal cannula. Sodium 134. Potassium 4.4. Bicarb 32. BUN 25. Creatinine 0.7. Glucose 148. Hemoglobin A1c 6.9. She remains on DuoNeb inhalations and Solu-Medrol. She remains on IV diuretics. Heparin for DVT prophylaxis. Haas catheter remains in place. Currently in a -2.8 L balance. The patient is seen today September 07, 2024 in follow-up on the regular medical floor. She is sitting up in a chair. Awake and alert in no acute distress. Denies any worsening shortness of breath, cough or congestion. Maintaining good O2 saturations up to 100% on 2 L/min per nasal cannula. She is afebrile. Hemodynamically stable. White count 6.9. Hemoglobin 11.9. Platelets 204. Sodium 133. Potassium 4.1. Bicarb 33. BUN 25. Creatinine 0.6. Glucose 153. She remains on DuoNeb inhalations. Currently on a prednisone taper. Heparin for DVT prophylaxis. She remains on IV diuretics. Currently in a -1.6 L balance. Objective - Vital Signs Vital signs: Vital Signs Temp 97.5 F L 09/07/24 07:41 Pulse 82 09/07/24 08:07 Resp 18 09/07/24 07:41 BP 116/76 09/07/24 07:41 Pulse Ox 98 09/07/24 07:58 FiO2 Intake & Output 09/06/24 09/07/24 09/07/24 18:59 06:59 18:59 Intake Total 640 Output Total 2300 600 Balance -1660 -600 Intake: Oral 640 Output: Urine 2300 600 Uretheral (Haas) 2300 Other: Voiding Method Indwelling Catheter Indwelling Catheter # Voids 2 1 - Exam GENERAL EXAM: Alert, pleasant 84-year-old female, sitting up in a chair, on 2 L nasal cannula, in no apparent distress. HEAD: Normocephalic. EYES: Normal reaction of pupils, equal size. NOSE: Clear with pink turbinates. THROAT: No erythema or exudates. NECK: No masses, no JVD. CHEST: No chest wall deformity. LUNGS: Equal air entry with Velcro crackles in the bilateral bases. CVS: S1 and S2 normal with no audible murmur, regular rhythm. ABDOMEN: No hepatosplenomegaly, normal bowel sounds, no guarding or rigidity. SPINE: No scoliosis or deformity SKIN: No rashes CENTRAL NERVOUS SYSTEM: No focal deficits, tone is normal in all 4 extremities. EXTREMITIES: There is trace peripheral edema. No clubbing, no cyanosis. Peripheral pulses are intact. - Labs CBC & Chem 7: 09/07/24 03:30 09/07/24 03:30 Labs: Abnormal Lab Results - Last 24 Hours (Table) 09/06/24 09/06/24 09/06/24 Range/Units 11:33 16:36 20:03 RBC (4.10-5.20) X 10*6/uL Hgb (12.0-15.0) g/dL Immature Gran # (0.00-0.04) X 10*3/uL Eosinophils # (0.04-0.35) X 10*3/uL Sodium (135-145) mmol/L Chloride (96-109) mmol/L Carbon Dioxide (21.6-31.8) mmol/L BUN/Creatinine Ratio (12.00-20.00) Ratio Glucose (70-110) mg/dL POC Glucose (mg/dL) 287 H 253 H 199 H (70-110) mg/dL 09/07/24 09/07/24 09/07/24 Range/Units 03:30 03:30 06:02 RBC 3.89 L (4.10-5.20) X 10*6/uL Hgb 11.9 L (12.0-15.0) g/dL Immature Gran # 0.10 H (0.00-0.04) X 10*3/uL Eosinophils # 0.01 L (0.04-0.35) X 10*3/uL Sodium 133 L (135-145) mmol/L Chloride 92 L (96-109) mmol/L Carbon Dioxide 33.1 H (21.6-31.8) mmol/L BUN/Creatinine Ratio 41.00 H (12.00-20.00) Ratio Glucose 153 H (70-110) mg/dL POC Glucose (mg/dL) 136 H (70-110) mg/dL Assessment and Plan Assessment: Acute on chronic hypoxemic respiratory failure secondary to pulmonary fibrosis and possible fluid volume overload. Treated with Levaquin and steroids in the outpatient setting Diarrhea and weakness suspect secondary to antibiotics Lower extremity edema secondary to being off diuretics while having diarrhea Abdominal discomfort suspect secondary to urinary retention. CT scan of the abdomen and pelvis revealed marked pulmonary fibrosis in the visualized lung bases. Distended bladder. Marked bilateral hydronephrosis with obstructing calcification suspected in the distal thirds of both ureters. Marked diverti culosis of the colon without evidence of acute diverticulitis. Haas catheter remains in place with significant urinary output. Abdominal discomfort has resolved. History of oxygen dependent, steroid-dependent pulmonary fibrosis Remote history of DVT Former smoker Plan: The patient was seen and evaluated Labs and medications reviewed Responding well to diuretics Currently in a -1.6 L balance Evaluate for ability to void Urology is following Currently stable on 2 L nasal cannula Continue prednisone taper Continue DuoNeb inhalations Increase her activity as tolerated Probable discharge in a.m. I have personally seen and examined the patient, performed the documentation and the assessment and plan as written. Number of minutes spent on the visit: 10 Dictation was produced using [employer] Apple[employer] MDation software. Please excuse any grammatical, word or spelling errors.
[2024-09-07 11:30] LABS: Glucose,Whole Blood 192 mg/dL (70-110)
[2024-09-07 16:31] LABS: Glucose,Whole Blood 259 mg/dL (70-110)
--- NOTE | 2024-09-07 16:44 | P.PN ---
Subjective Progress Note Date: 09/07/24 84 years old female with past medical history of multiple medical problems as below. Including history of COPD and pulmonary fibrosis and she follow-up with Dr. Villa in the office. Patient presents because of worsening shortness of breath and chest pressure for about 1 week. Also she is complaining from diarrhea which she describes as severe she had 6 bowel movements yesterday and they were loose. While she was in the emergency room she was started complaining from lower abdominal pain about 5/10 in severity felt nonspecific nonradiating that comes and goes. It has more with passing urine not sure if she has dysuria but she has urge to pee nothing coming up. Will check urinalysis was negative. Bladder scan is requested as well. Injury going to check CT of the abdomen and pelvis with contrast orally only no IV contrast. She is complaining from low back pain. She walks using a walker but she got really short of breath and exertional dyspnea She states that she was recently treated for influenza about 2 weeks ago by her PCP with the steroids and antibiotics and she states that antibiotics always make her having diarrhea. She is also have cough and yellow phlegm on and off for the last 2 months. No vomiting no headache dizziness weakness or tingling. She denies smoking alcohol or illicit drugs. She is hemodynamically stable and required 3 to 4 L/min to keep saturation 97. She has unremarkable CBC, BMP LFT INR, troponin. Urinalysis negative. Influenza and COVID test were negative. Magnesium low 1.2. Lactic acid 2.8 which is slightly elevated. proBNP is high 1450. EKG showing sinus rhythm at [address]-T changes. Chest x-ray showing mild pulm lateral pleural effusion left more than right with possible pulmonary congestion Ejection fraction is unknown and echocardiogram is requested as well as C. difficile. She is currently placed on IV Lasix 40 mg twice daily. She continued on home dose of prednisone 5 mg and Plavix. 09/06/2024 Patient is seen and evaluated in follow-up on the regular medical floor. She is currently sitting up in bed. Awake and alert in no acute distress. Breathing easier today compared to yesterday. She is maintaining O2 saturations in the 90s on 3 L/min per nasal cannula. Sodium 134. Potassium 4.4. Bicarb 32. BUN 25. Creatinine 0.7. Glucose 148. Hemoglobin A1c 6.9. She remains on DuoNeb i nhalations and Solu-Medrol. She remains on IV diuretics. Heparin for DVT prophylaxis. Haas catheter remains in place. Currently in a -2.8 L balance. 09/07/2024 Patient is seen and evaluated in in follow-up on the regular medical floor. She is sitting up in a chair. Awake and alert in no acute distress. Denies any worsening shortness of breath, cough or congestion. Maintaining good O2 saturations up to 100% on 2 L/min per nasal cannula. She is afebrile. Hemodyn amically stable. White count 6.9. Hemoglobin 11.9. Platelets 204. Sodium 133. Potassium 4.1. Bicarb 33. BUN 25. Creatinine 0.6. Glucose 153. She remains on DuoNeb inhalations. Currently on a prednisone taper. Heparin for DVT prophylaxis. She remains on IV diuretics. Currently stable on 2 L nasal cannula Continue prednisone tape; DuoNeb inhalations Increase her activity as tolerated Probable discharge in a.m. Patient is requesting a bedside commode; will consult case management Objective - Vital Signs Vital signs: Vital Signs Temp 97.5 F L 09/07/24 07:41 Pulse 82 09/07/24 08:07 Resp 18 09/07/24 07:41 BP 116/76 09/07/24 07:41 Pulse Ox 98 09/07/24 07:58 FiO2 Intake & Output 09/06/24 09/07/24 09/07/24 18:59 06:59 18:59 Intake Total 640 Output Total 2300 Balance -1660 Intake: Oral 640 Output: Urine 2300 Uretheral (Haas) 2300 Other: Voiding Method Indwelling Catheter Indwelling Catheter # Voids 2 1 - Exam GENERAL: The patient is alert and oriented x3, not in any acute distress. Well developed, well nourished. HEENT: Pupils are round and equally reacting to light. EOMI. No scleral icterus. No conjunctival pallor. Normocephalic, atraumatic. No pharyngeal erythema. No thyromegaly. CARDIOVASCULAR: S1 and S2 present. No murmurs, rubs, or gallops. -PULMONARY: Chest is clear to auscultation, no wheezing , bilateral basal crackles. Tachypnea -ABDOMEN: Soft, lower abdominal tenderness r, nondistended, normoactive bowel sounds. No palpable organomegaly. MUSCULOSKELETAL: No joint swelling or deformity. EXTREMITIES: No cyanosis, clubbing, or pedal edema. NEUROLOGICAL: Gross neurological examination did not reveal any focal deficits. SKIN: No rashes. no petechiae. - Labs CBC & Chem 7: 09/07/24 03:30 09/07/24 03:30 Labs: Abnormal Lab Results - Last 24 Hours (Table) 09/06/24 09/06/24 09/06/24 Range/Units 11:33 16:36 20:03 RBC (4.10-5.20) X 10*6/uL Hgb (12.0-15.0) g/dL Immature Gran # (0.00-0.04) X 10*3/uL Eosinophils # (0.04-0.35) X 10*3/uL Sodium (135-145) mmol/L Chloride (96-109) mmol/L Carbon Dioxide (21.6-31.8) mmol/L BUN/Creatinine Ratio (12.00-20.00) Ratio Glucose (70-110) mg/dL POC Glucose (mg/dL) 287 H 253 H 199 H (70-110) mg/dL 09/07/24 09/07/24 09/07/24 Range/Units 03:30 03:30 06:02 RBC 3.89 L (4.10-5.20) X 10*6/uL Hgb 11.9 L (12.0-15.0) g/dL Immature Gran # 0.10 H (0.00-0.04) X 10*3/uL Eosinophils # 0.01 L (0.04-0.35) X 10*3/uL Sodium 133 L (135-145) mmol/L Chloride 92 L (96-109) mmol/L Carbon Dioxide 33.1 H (21.6-31.8) mmol/L BUN/Creatinine Ratio 41.00 H (12.00-20.00) Ratio Glucose 153 H (70-110) mg/dL POC Glucose (mg/dL) 136 H (70-110) mg/dL Assessment and Plan Assessment: Acute CHF exacerbation, pulmonary congestion acute COPD Acute urinary retention with bilateral hydronephrosis, improved with insertion of Haas catheter pulmonary fibrosis Diarrhea, rule out C. difficile with lower abdominal pain.improved Mildly elevated lactic acid, resolved Hypomagnesemia Recent diagnosis with influenza treated with antibiotics and steroids. History of DVT Gastroesophageal reflux disease Hypertension Osteoarthritis Hypothyroidism. History of pelvic inflammatory disease. History of diarrhea History of anemia. S/p cholecystectomy Plan: Continue with IV Lasix 40 mg once daily Continue with Plavix and prednisone 5 mg Replace magnesium and monitor electrolytes Diarrhea improved CT of the abdomen showed bilateral hydronephrosis, Haas catheter placed urinary retention urology team were consulted Echocardiogram showed preserved ejection fraction Pulmonary team consult Labs and medication were reviewed.. Continue same treatment. Continue with symptomatic treatment. Resume home medication. Monitor labs and vitals. DVT and GI prophylaxis. Further recommendations as per clinical course of the patient DVT prophylaxis: Subcutaneous heparin GI Prophylaxis: Protonix PT/OT: Pending Prognosis is guarded
[2024-09-07 19:56] LABS: Glucose,Whole Blood 279 mg/dL (70-110)
[2024-09-08 06:07] LABS: Glucose,Whole Blood 154 mg/dL (70-110)
--- NOTE | 2024-09-08 07:42 | XR ---
EXAMINATION TYPE: XR chest 1V portable DATE OF EXAM: 09/08/2024 6:47 AM COMPARISON: 09/03/2024 CLINICAL INDICATION: Female, 84 years old with history of Pulmonary fibrosis, , FINDINGS: Heart mildly enlarged. Medium and coarse diffuse reticular opacities and patchy density remains, grea test in the right upper lobe. There may be slight interval improvement in aeration in the retrocardia c region. No sizable pleural effusion. IMPRESSION: Mild cardiomegaly and similar diffuse, coarse interstitial lung disease. Possibly with slight interva l improvement in aeration in the retrocardiac region. [facility], , 09/08/2024 7:39 AM
[2024-09-08 08:27] VITALS: BP 121/74; RESP 18; TEMP 97.7
[2024-09-08 08:59] LABS: BUN/Creat Ratio 35.57 Ratio (12.00-20.00); Blood Urea Nitrogen 24.9 mg/dL (9.0-27.0); Calcium 9.1 mg/dL (8.7-10.3); Carbon Dioxide 32.8 mmol/L (21.6-31.8); Chloride 90 mmol/L (96-109); Glucose 157 mg/dL (70-110); Potassium 3.8 mmol/L (3.5-5.5); Sodium 133 mmol/L (135-145)
[2024-09-08 11:25] LABS: Glucose,Whole Blood 167 mg/dL (70-110)
[2024-09-08 12:55] VITALS: PULSE 78
--- NOTE | 2024-09-08 13:23 | P.PN ---
Subjective Progress Note Date: 09/08/24 This is an 84-year-old female patient with a known history of diabetes mellitus, DVT, hypertension, hypothyroidism, gastroesophageal reflux disease, former smoker and oxygen dependent, steroid-dependent pulmonary fibrosis and follows with Dr. Kirkland in our office. She had seen him recently for increasing shortness of breath and was placed on Levaquin and a prednisone taper. She did develop diarrhea over the past couple days. She has been quite weak and shaky and feeling more short of breath. He also had complaints of increased edema of the lower extremities as she was taken off her Lasix due to the diarrhea and presented here to the emergency room this morning. Chest x-ray shows evidence of pulmonary fibrosis. White count 9.7. Hemoglobin 12.9. Platelets 218. Sodium 135. Potassium 3.5. Bicarb 24. BUN 15. Creatinine 0.52. Glucose 159. AST 20. ALT 13. Troponin negative x 1. proBNP 1450. Urinalysis clean. Viral screen negative. She is seen today in consultation in the emergency department. She is currently sitting up on a stretcher. Awake and alert in no acute distress. She is maintaining O2 saturations in the 90s on 3 L/min per nasal cannula. She is afebrile. Hemodynamically stable. The patient was seen today September 04, 2024 in follow-up on the regular medical ar oor. She is currently sitting up in bed. Awake and alert in no acute distress. Feeling better today compared to yesterday. Maintaining O2 saturations in the 90s on 2 L/min per nasal cannula. She has been afebrile. Hemodynamically stable. She is diuresing well currently in a -1.9 L balance. White count 6.4. Hemoglobin 12.1. Platelets 209. Sodium 134. Potassium 4.6. Bicarb 30. BUN 13. Creatinine 0.6. Glucose 232. Urinalysis clean. She is continued on Lasix 40 mg IV daily. Continued on Solu-Medrol and bronchodilators. CT scan of the abdomen and pelvis revealed marked pulmonary fibrosis in the visualized lung bases. Distended bladder. Marked bilateral hydronephrosis with obstructing calcification suspected in the distal thirds of both ureters. Marked diverticulosis of the colon without evidence of acute diverticulitis. Haas catheter remains in place with significant urinary output. Abdominal discomfort has resolved. The patient is seen today September 05, 2024 in follow-up on the regular medical floor. She is awake and alert in no acute distress. Breathing easier today compared to yesterday. Maintaining good O2 saturations in the 90s on 3 L/min per nasal cannula. She was having issues with urinary retention. Haas catheter remains in place. She had been seen by urology. She remains on DuoNeb inhalations, Solu-Medrol. Remains on IV diuretics. Heparin for DVT prophylaxis. She is on Flomax. Currently in a -4.4 L balance. Glucose 279. The patient is seen today September 06, 2024 in follow-up on the regular medical floor. She is currently sitting up in bed. Awake and alert in no acute distress. Breathing easier today compared to yesterday. She is maintaining O2 saturations in the 90s on 3 L/min per nasal cannula. Sodium 134. Potassium 4.4. Bicarb 32. BUN 25. Creatinine 0.7. Glucose 148. Hemoglobin A1c 6.9. She remains on DuoNeb inhalations and Solu-Medrol. She remains on IV diuretics. Heparin for DVT prophylaxis. Haas catheter remains in place. Currently in a -2.8 L balance. The patient is seen today September 07, 2024 in follow-up on the regular medical floor. She is sitting up in a chair. Awake and alert in no acute distress. Denies any worsening shortness of breath, cough or congestion. Maintaining good O2 saturations up to 100% on 2 L/min per nasal cannula. She is afebrile. Hemodynamically stable. White count 6.9. Hemoglobin 11.9. Platelets 204. Sodium 133. Potassium 4.1. Bicarb 33. BUN 25. Creatinine 0.6. Glucose 153. She remains on DuoNeb inhalations. Currently on a prednisone taper. Heparin for DVT prophylaxis. She remains on IV diuretics. Currently in a -1.6 L balance. The patient is seen today September 08, 2024 and follow-up on the regular medical floor. She was currently sitting up in bed. Awake and alert in no acute distress. She denies any worsening shortness of breath, cough or congestion. She is maintaining good O2 saturations in the 90s on 2 L/min per nasal cannula. No IV fluids. Chest x-ray shows slight improvement in aeration. Mild cardiomegaly and diffuse coarse interstitial lung disease. Sodium 133. Potassium 3.8. Bicarb 33. BUN 25. Creatinine 0.7. Glucose 157. She is continued on DuoNeb and elations, prednisone taper. Heparin for DVT prophylaxis. Remains on IV diuretics. Indwelling Haas catheter remains in place. Objective - Vital Signs Vital signs: Vital Signs Temp 97.7 F 09/08/24 07:19 Pulse 78 09/08/24 12:54 Resp 18 09/08/24 07:19 BP 121/74 09/08/24 07:19 Pulse Ox 97 09/08/24 12:45 FiO2 Intake & Output 09/07/24 09/08/24 09/08/24 18:59 06:59 18:59 Intake Total 1000 Output Total 600 Balance -600 1000 Intake: Oral 1000 Output: Urine 600 Other: Voiding Method Indwelling Catheter # Voids 4 2 - Exam GENERAL EXAM: Alert, 84-year-old female, sitting up in bed, on 2 L nasal cannula, comfortable in no apparent distress. HEAD: Normocephalic. EYES: Normal reaction of pupils, equal size. NOSE: Clear with pink turbinates. THROAT: No erythema or exudates. NECK: No masses, no JVD. CHEST: No chest wall deformity. LUNGS: Equal air entry with Velcro crackles in the bilateral bases. CVS: S1 and S2 normal with no audible murmur, regular rhythm. ABDOMEN: No hepatosplenomegaly, normal bowel sounds, no guarding or rigidity. SPINE: No scoliosis or deformity SKIN: No rashes CENTRAL NERVOUS SYSTEM: No focal deficits, tone is normal in all 4 extremities. EXTREMITIES: There is trace peripheral edema. No clubbing, no cyanosis. Peripheral pulses are intact. - Labs CBC & Chem 7: 09/07/24 03:30 09/08/24 02:36 Labs: Abnormal Lab Results - Last 24 Hours (Table) 09/07/24 09/07/24 09/08/24 Range/Units 16:29 19:55 02:36 Sodium 133 L (135-145) mmol/L Chloride 90 L (96-109) mmol/L Carbon Dioxide 32.8 H (21.6-31.8) mmol/L BUN/Creatinine Ratio 35.57 H (12.00-20.00) Ratio Glucose 157 H (70-110) mg/dL POC Glucose (mg/dL) 259 H 279 H (70-110) mg/dL 09/08/24 09/08/24 Range/Units 06:06 11:23 Sodium (135-145) mmol/L Chloride (96-109) mmol/L Carbon Dioxide (21.6-31.8) mmol/L BUN/Creatinine Ratio (12.00-20.00) Ratio Glucose (70-110) mg/dL POC Glucose (mg/dL) 154 H 167 H (70-110) mg/dL Assessment and Plan Assessment: Acute on chronic hypoxemic respiratory failure secondary to pulmonary fibrosis and possible fluid volume overload. Treated with Levaquin and steroids in the outpatient setting Diarrhea and weakness suspect secondary to antibiotics Lower extremity edema secondary to being off diuretics while having diarrhea Abdominal discomfort suspect secondary to urinary retention. CT scan of the abdomen and pelvis revealed marked pulmonary fibrosis in the visualized lung bases. Distended bladder. Marked bilateral hydronephrosis with obstructing calcification suspected in the distal thirds of both ureters. Marked diverticulosis of the colon without evidence of acute diverticulitis. Haas catheter remains in place with significant urinary output. Abdominal discomfort has resolved. History of oxygen dependent, steroid-dependent pulmonary fibrosis Remote history of DVT Former smoker Plan: The patient was seen and evaluated Labs and medications reviewed Currently stable on 2 L nasal cannula Continue prednisone taper Continue DuoNeb inhalations Increase her activity as tolerated Cleared for discharge Follow-up with Dr. Gonzales in our office in 1 week I have personally seen and examined the patient, performed the documentation and the assessment and plan as written. Number of minutes spent on the visit: 10 Dictation was produced using [employer] dictation software. Please excuse any grammatical, word or spelling errors.
== END 2024-09-08 16:27 | disposition home or self-care (01) | DRG 291 ==
LOC: EC 09:01 → 4SSUR 10:24
PROVIDERS: ADMIT Hospitalist; ATTEND Hospitalist
DX: I11.0 Hypertensive heart disease with heart failure (principal); I50.33 Acute on chronic diastolic (congestive) heart failure; J96.21 Acute and chronic respiratory failure with hypoxia; E87.20 Acidosis, unspecified; J91.8 Pleural effusion in other conditions classified elsewhere; K52.1 Toxic gastroenteritis and colitis; Z66 Do not resuscitate; E11.51 Type 2 diabetes mellitus with diabetic peripheral angiopathy without gangrene; J44.89 Other specified chronic obstructive pulmonary disease; E03.9 Hypothyroidism, unspecified; N13.2 Hydronephrosis with renal and ureteral calculous obstruction; J84.10 Pulmonary fibrosis, unspecified; Z99.81 Dependence on supplemental oxygen; K57.30 Diverticulosis of large intestine without perforation or abscess without bleeding; R33.9 Retention of urine, unspecified; T36.95XA Adverse effect of unspecified systemic antibiotic, initial encounter; M19.90 Unspecified osteoarthritis, unspecified site; K21.9 Gastro-esophageal reflux disease without esophagitis; E83.42 Hypomagnesemia; Z79.899 Other long term (current) drug therapy; Z79.890 Hormone replacement therapy; Z79.02 Long term (current) use of antithrombotics/antiplatelets; Z86.16 Personal history of COVID-19; Z86.718 Personal history of other venous thrombosis and embolism; Z87.891 Personal history of nicotine dependence; Z79.52 Long term (current) use of systemic steroids; Z87.42 Personal history of other diseases of the female genital tract; Z90.49 Acquired absence of other specified parts of digestive tract
CPT/HCPCS: 36415; 71045; 71046; 74176; 80048; 80053; 81001; 83036; 83605; 83735; 83880; 84145; 84484; 85025; 85610; 85730; 87324; 87636; 93005; 93306; 94640; 94760; 96365; 96366; 96375; 99285

== ENCOUNTER → 2024-10-01 | Outpatient (CLI) | payer MEDICARE ==
[2024-10-01 18:58] LABS: HCT 41.3 % (37.2-46.3); HGB 13.2 g/dL (12.0-15.0); MCH 31.7 pg (27.0-32.0); Mean Platelet Volume 10.3 FL (9.5-12.2); NRBC Per 100 WBC 0 X 10*3/uL (0.00-0.01); Platelet Count 235 X 10*3/uL (140-440); RBC 4.17 X 10*6/uL (4.10-5.20); RDW 13.6 % (11.5-14.5); WBC 6.88 X 10*3/uL (4.50-10.00)
[2024-10-01 19:11] LABS: ALT 12 U/L (8-44); AST 18 U/L (13-35); Albumin/Globulin Ratio 1.82 Ratio (1.60-3.17); Alkaline Phosphatase 77 U/L (41-126); BUN/Creat Ratio 23.71 Ratio (12.00-20.00); Blood Urea Nitrogen 16.6 mg/dL (9.0-27.0); Calcium 9.7 mg/dL (8.7-10.3); Carbon Dioxide 27.6 mmol/L (21.6-31.8); Chloride 100 mmol/L (96-109); Globulin 2.2 g/dL (1.6-3.3); Glucose 232 mg/dL (70-110); Potassium 4.3 mmol/L (3.5-5.5); Sodium 139 mmol/L (135-145); Total Bilirubin 0.6 mg/dL (0.3-1.2); Total Protein 6.2 g/dL (6.2-8.2)
== END | disposition home or self-care (01) ==
LOC: LABWHC1 14:15
PROVIDERS: ATTEND Internal Medicine Cardiovascular Disease
DX: I10 Essential (primary) hypertension (principal); I25.10 Atherosclerotic heart disease of native coronary artery without angina pectoris
CPT/HCPCS: 36415; 80053; 85027

== ENCOUNTER 2024-10-09 14:09 | Emergency (ER) | payer MEDICARE ==
[2024-10-09 14:28] VITALS: BP 135/83; RESP 17; TEMP 98.1
--- NOTE | 2024-10-09 14:32 | ED ---
General Adult HPI - General Chief complaint: Shortness of Breath Stated complaint: shortness of breath Time Seen by Provider: 10/09/24 14:28 Source: patient, RN notes reviewed Mode of arrival: EMS Limitations: no limitations - History of Present Illness Initial comments: 84 yo female presents to the ED for evaluation of SOB. She has a medical history significant for COPD and says that her access to her oxygen tubing was cut off accidentally for a few hours because of a hole in it. Since then she has been having chest pain, congestion, and SOB. She also reports she was diagnosed with pneumonia about a week ago and had to stop her medication for it due to blood in the stool. She denies any fevers or chills. - Related Data Home Medications Medication Instructions Recorded Confirmed Albuterol Sulfate [Ventolin HFA] 2 puff INHALATION RT-Q4H PRN 10/12/13 09/03/24 Levothyroxine Sodium [Synthroid] 75 mcg PO DAILY 10/12/13 09/03/24 Clopidogrel [Plavix] 75 mg PO DAILY 01/09/17 09/03/24 Diphenoxylate HCl/Atropine 2 tab PO DAILY 08/05/19 09/03/24 [Lomotil 2.5-0.025 mg Tablet] Albuterol Nebulized [Ventolin 2.5 mg INHALATION RT-Q6H PRN 11/02/22 09/03/24 Nebulized] Latanoprost [Latanoprost 0.005%] 1 drop RIGHT EYE HS 11/02/22 09/03/24 Metoprolol Succinate (ER) [Toprol 25 mg PO DAILY 11/02/22 09/03/24 XL] Pantoprazole Sodium 40 mg PO DAILY 11/02/22 09/03/24 Calcium Carb-Vit D 250Mg-125Un 1 tab PO DAILY 09/03/24 09/03/24 [Oscal 250+D 3.125 Mcg (125 Iu)] Cholestyramine (with Sugar) 4 gm PO DAILY 09/03/24 09/03/24 [Cholestyramine Powder] Diphenoxylate HCl/Atropine 1 tab PO HS PRN 09/03/24 09/03/24 [Diphenoxylate HCl/Atropine 2.5-0.025] Diphenoxylate HCl/Atropine 1 tab PO W/SUPPER 09/03/24 09/03/24 [Lomotil 2.5-0.025 mg Tablet] Previous Rx's Medication Instructions Recorded ALPRAZolam [Xanax] 0.25 mg PO DAILY PRN #6 tab 09/08/24 Acetaminophen Tab [Tylenol] 650 mg PO Q6HR PRN tab 09/08/24 Furosemide [Lasix] 40 mg PO DAILY #30 tablet 09/08/24 Ipratropium-Albuterol Nebulize 3 ml INHALATION RT-Q2H PRN each 09/08/24 [Duoneb 0.5 mg-3 mg/3 ml Soln] Ipratropium-Albuterol Nebulize 3 ml INHALATION RT-QID #100 each 09/08/24 [Duoneb 0.5 mg-3 mg/3 ml Soln] Tamsulosin [Flomax] 0.4 mg PO PC-SUPPER #30 cap 09/08/24 predniSONE See Taper PO DIRECTED #30 tab 09/08/24 Azithromycin [Zithromax Z Pack] 0 tab PO DIRECTED #6 tab 10/09/24 Allergies Allergy/AdvReac Type Severity Reaction Status Date / Time erythromycin base Allergy Intermediate Abdominal Verified 09/03/24 10:46 [Erythromycin Base] Pain denosumab [From Prolia] Allergy Rash/Hives Verified 09/03/24 10:46 Review of Systems ROS Statement: Those systems with pertinent positive or pertinent negative responses have been documented in the HPI. ROS Other: All systems not noted in ROS Statement are negative. 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 oophorectomy, right leg varicose vein surg. robbin cataract, exploratory surgery on chest area to remove a "lump", Past Anesthesia/Blood Transfusion Reactions: No Reported Reaction, Family History of Problems w/ Anesthesia Additional Past Anesthesia/Blood Transfusion Reaction / Comment(s): claustrophobia, son had diff breathing during surgery at age 4,. no problems with prior blood transfusion Past Psychological History: Anxiety Smoking Status: Former smoker Past Alcohol Use History: Rare Past Drug Use History: None Reported - Past Family History Father Family Medical History: Deep Vein Thrombosis (DVT) Additional Family Medical History / Comment(s): FROM CORONARY THROMBOSIS Mother Family Medical History: Pneumonia, Rheumatoid Arthritis (RA) Additional Family Medical History / Comment(s): Peptic ulcer disease.PVD, HAITAL HERNIA, DIVERTICULITIS Sister(s) Family Medical History: Blood Disorder, Cancer, Deep Vein Thrombosis (DVT) Additional Family Medical History / Comment(s): Colon polyps. General Exam Limitations: no limitations General appearance: alert, in no apparent distress Head exam: Present: atraumatic, normocephalic, normal inspection ENT exam: Present: normal exam, mucous membranes moist Neck exam: Present: normal inspection, full ROM. Absent: tenderness, meningismus, lymphadenopathy Respiratory exam: Present: wheezes, decreased breath sounds. Absent: respiratory distress, rales, rhonchi, stridor Cardiovascular Exam: Present: regular rate, normal rhythm, normal heart sounds. Absent: systolic murmur, diastolic murmur, rubs, gallop, clicks Course Vital Signs 10/09/24 10/09/24 10/09/24 14:12 15:57 16:06 Temperature 98.1 F Pulse Rate 76 62 64 Respiratory 17 Rate Blood Pressure 135/83 O2 Sat by Pulse 96 Oximetry EKG Findings - EKG Comments: EKG Findings:: EKG performed at 14: 32 sinus rhythm with rate of 76 MT 148 QRS 87 QT/QTc 385/414 - EKG Results: EKG: interpreted by MATT Medical Decision Making - Medical Decision Making Was pt. sent in by a medical professional or institution (, PA, ELECTRIC APPLIANCE INSTALLER, urgent care, hospital, or snf...) When possible be specific @ -No Did you speak to anyone other than the patient for history (EMS, parent, family, police, friend...)? What history was obtained from this source @ -No Did you review nursing and triage notes (agree or disagree)? Why? @ -I reviewed and agree with nursing and triage notes Were old charts reviewed (outside hosp., previous admission, EMS record, old EKG, old radiological studies, urgent care reports/EKG's, snf records)? Report findings @ -No old charts were reviewed Differential Diagnosis (chest pain, altered mental status, abdominal pain women, abdominal pain men, vaginal bleeding, weakness, fever, dyspnea, syncope, headache, dizziness, GI bleed, back pain, seizure, CVA, palpatations, mental health, musculoskeletal)? @ -Differential Dyspnea: Coronary syndrome, arrhythmia, tamponade, asthma, COPD, pulmonary embolism, pneumonia, pneumothorax, pulmonary effusion, anaphylaxis, diabetic ketoacidosis, flailed chest, pulmonary contusion, diaphragmatic rupture, anemia, neuromuscular, this is not meant to be an all-inclusive list. EKG interpreted by me (3pts min.). @ -As above X-rays interpreted by me (1pt min.). @ -Chest x-ray shows pulmonary fibrosis type changes chronic changes with mild patchy areas CT interpreted by me (1pt min.). @ -None done U/S interpreted by me (1pt. min.). @ -None done What testing was considered but not performed or refused? (CT, X-rays, U/S, labs)? Why? @ -None What meds were considered but not given or refused? Why? @ -None Did you discuss the management of the patient with other professionals (professionals i.e. , PA, ELECTRIC APPLIANCE INSTALLER, lab, RT, psych nurse, drug abuse social worker, marine firer, teacher, special forces officer, leather case finisher)? Give summary @ -No Was smoking cessation discussed for >3mins.? @ -No Was critical care preformed (if so, how long)? @ -No Were there social determinants of health that impacted care today? How? (Homelessness, low income, unemployed, alcoholism, drug addiction, transportation, low edu. Level, literacy, decrease access to med. care, senior care, rehab)? @ -No Was there de-escalation of care discussed even if they declined (Discuss DNR or withdrawal of care, Hospice)? DNR status @ -No What co-morbidities impacted this encounter? (DM, HTN, Smoking, COPD, CAD, Cancer, CVA, ARF, Chemo, Hep., AIDS, mental health diagnosis, sleep apnea, morbid obesity)? @ -None Was patient admitted / discharged? Hospital course, mention meds given and route, prescriptions, significant lab abnormalities, going to OR and other pertinent info. @ -Discharge patient is well-appearing no signs distress oxygen at baseline and current supplemental O2 which patient wears at home. Patient holding her tubing causing complications at home. Patient is stable for discharge and return parameters perla. Undiagnosed new problem with uncertain prognosis? @ -No Drug Therapy requiring intensive monitoring for toxicity (Heparin, Nitro, Insulin, Cardizem)? @ -No Were any procedures done? @ -No Diagnosis/symptom? @Chronic lung disease, pulmonary fibrosis, dyspnea tracheobronchitis Acute, or Chronic, or Acute on Chronic? @ -Acute on chronic Uncomplicated (without systemic symptoms) or Complicated (systemic symptoms)? @ -Complicated Side effects of treatment? @ -No Exacerbation, Progression, or Severe Exacerbation? @ -No Poses a threat to life or bodily function? How? (Chest pain, [place], [place], pneumonia, PE, COPD, DKA, ARF, appy, cholecystitis, CVA, Diverticulitis, Homicidal, Suicidal, threat to staff... and all critical care pts) @ -Yes possible respiratory arrest - Lab Data Result diagrams: 10/09/24 14:28 10/09/24 14:28 Lab Results 10/09/24 10/09/24 10/09/24 Range/Units 14:28 14:28 14:28 WBC 7.55 (4.50-10.00) 10*3/uL RBC 4.06 L (4.10-5.20) 10*6/uL Hgb 12.8 (12.0-15.0) g/dL Hct 39.0 (37.2-46.3) % MCV 96.1 (80.0-97.0) fL MCH 31.5 (27.0-32.0) pg MCHC 32.8 (32.0-37.0) g/dL Plt Count 188 (140-440) 10*3/uL MPV 9.9 (9.5-12.2) fL Immature Gran % (Auto) 1.1 % Neutrophils % 83.1 % Lymphocytes % 10.1 % Monocytes % 5.0 % Eosinophils % 0.0 % Basophils % 0.7 % Immature Gran # 0.08 H (0.00-0.04) 10*3/uL Neutrophils # 6.28 (1.80-7.70) 10*3/uL Lymphocytes # 0.76 L (0.90-5.00) 10*3/uL Monocytes # 0.38 (0.20-1.00) 10*3/uL Eosinophils # 0.00 L (0.04-0.35) 10*3/uL Basophils # 0.05 (0.00-0.10) 10*3/uL PT 10.9 (10.0-12.5) sec INR 1.0 (<1.2) APTT 19.5 L (22.0-30.0) sec Sodium 138 (137-145) mmol/L Potassium 3.9 (3.5-5.1) mmol/L Chloride 99 (98-107) mmol/L Carbon Dioxide 31 H (22-30) mmol/L Anion Gap 8 mmol/L BUN 18 H (7-17) mg/dL Creatinine 0.63 (0.52-1.04) mg/dL Est GFR (CKD-EPI)AfAm >90 (>60 ml/min/1.73 sqM) Est GFR (CKD-EPI)NonAf 84 (>60 ml/min/1.73 sqM) Glucose 181 H (74-99) mg/dL Plasma Lactic Acid Maynor (0.7-2.0) mmol/L Calcium 9.7 (8.4-10.2) mg/dL Magnesium 1.7 (1.6-2.3) mg/dL Total Bilirubin 0.7 (0.2-1.3) mg/dL AST 19 (14-36) U/L ALT 11 (4-34) U/L Alkaline Phosphatase 66 (38-126) U/L Troponin I (0.000-0.034) ng/mL NT-Pro-B Natriuret Pep 1040 pg/mL Total Protein 6.7 (6.3-8.2) g/dL Albumin 4.1 (3.5-5.0) g/dL 10/09/24 10/09/24 Range/Units 14:28 14:28 WBC (4.50-10.00) 10*3/uL RBC (4.10-5.20) 10*6/uL Hgb (12.0-15.0) g/dL Hct (37.2-46.3) % MCV (80.0-97.0) fL MCH (27.0-32.0) pg MCHC (32.0-37.0) g/dL Plt Count (140-440) 10*3/uL MPV (9.5-12.2) fL Immature Gran % (Auto) % Neutrophils % % Lymphocytes % % Monocytes % % Eosinophils % % Basophils % % Immature Gran # (0.00-0.04) 10*3/uL Neutrophils # (1.80-7.70) 10*3/uL Lymphocytes # (0.90-5.00) 10*3/uL Monocytes # (0.20-1.00) 10*3/uL Eosinophils # (0.04-0.35) 10*3/uL Basophils # (0.00-0.10) 10*3/uL PT (10.0-12.5) sec INR (<1.2) APTT (22.0-30.0) sec Sodium (137-145) mmol/L Potassium (3.5-5.1) mmol/L Chloride (98-107) mmol/L Carbon Dioxide (22-30) mmol/L Anion Gap mmol/L BUN (7-17) mg/dL Creatinine (0.52-1.04) mg/dL Est GFR (CKD-EPI)AfAm (>60 ml/min/1.73 sqM) Est GFR (CKD-EPI)NonAf (>60 ml/min/1.73 sqM) Glucose (74-99) mg/dL Plasma Lactic Acid Maynor 1.0 (0.7-2.0) mmol/L Calcium (8.4-10.2) mg/dL Magnesium (1.6-2.3) mg/dL Total Bilirubin (0.2-1.3) mg/dL AST (14-36) U/L ALT (4-34) U/L Alkaline Phosphatase (38-126) U/L Troponin I <0.012 (0.000-0.034) ng/mL NT-Pro-B Natriuret Pep pg/mL Total Protein (6.3-8.2) g/dL Albumin (3.5-5.0) g/dL Disposition Clinical Impression: Pulmonary fibrosis, Chronic lung disease, Acute tracheobronchitis Disposition: HOME SELF-CARE Condition: Stable Instructions (If sedation given, give patient instructions): Acute Bronchitis (ED) Additional Instructions: Please return to the Emergency Department if symptoms worsen or any other concerns. Prescriptions: Azithromycin [Zithromax Z Pack] 0 tab PO DIRECTED #6 tab Is patient prescribed a controlled substance at d/c from ED?: No Referrals: Artie Green DO [Primary Care Provider] - 1-2 days Time of Disposition: 16:12
[2024-10-09 14:51] LABS: Basophils # (A) 0.05 10*3/uL (0.00-0.10); Basophils % (A) 0.7 %; HGB 12.8 g/dL (12.0-15.0); Lymphocytes # (A) 0.76 10*3/uL (0.90-5.00); Lymphocytes % (A) 10.1 %; MCH 31.5 pg (27.0-32.0); MCHC 32.8 g/dL (32.0-37.0); MCV 96.1 fL (80.0-97.0); Mean Platelet Volume 9.9 fL (9.5-12.2); Monocytes # (A) 0.38 10*3/uL (0.20-1.00); Neutrophils # (A) 6.28 10*3/uL (1.80-7.70); Neutrophils % (A) 83.1 %; Platelet Count 188 10*3/uL (140-440); RBC 4.06 10*6/uL (4.10-5.20); RDW 13.4 % (11.5-14.5); WBC 7.55 10*3/uL (4.50-10.00)
[2024-10-09 15:09] LABS: ALT 11 U/L (4-34); AST 19 U/L (14-36); African American GFR (CKD) >90 (>60 ml/min/1.73 sqM); Albumin 4.1 g/dL (3.5-5.0); Alkaline Phosphatase 66 U/L (38-126); Anion Gap 8 mmol/L; Blood Urea Nitrogen 18 mg/dL (7-17); Calcium 9.7 mg/dL (8.4-10.2); Carbon Dioxide 31 mmol/L (22-30); Chloride 99 mmol/L (98-107); Glucose 181 mg/dL (74-99); Magnesium 1.7 mg/dL (1.6-2.3); Non-African American GFR(CKD) 84 (>60 ml/min/1.73 sqM); Potassium 3.9 mmol/L (3.5-5.1); Sodium 138 mmol/L (137-145); Total Bilirubin 0.7 mg/dL (0.2-1.3); Total Protein 6.7 g/dL (6.3-8.2)
[2024-10-09 15:10] LABS: Prothrombin Time 10.9 sec (10.0-12.5)
[2024-10-09 15:15] LABS: Partial Thromboplastin Time 19.5 sec (22.0-30.0)
[2024-10-09 15:16] LABS: NT-Pro-B-Type Natriuretic Pept 1040 pg/mL
[2024-10-09] MEDS: IPRATROPIUM-ALBUTEROL 3 ML NEB INHALATION STA (15:57)
--- NOTE | 2024-10-09 15:58 | XR ---
EXAMINATION TYPE: XR chest 2V DATE OF EXAM: 10/09/2024 3:42 PM COMPARISON: 10/07/2024 CLINICAL INDICATION: Female, 84 years old with history of difficulty breathing, shortness of breath TECHNIQUE: PA and lateral views FINDINGS: The heart is mild to moderately enlarged. Coarse reticular opacities which appear more confluent from recent prior. No pleural effusion. IMPRESSION: Cardiomegaly and suspected chronic interstitial lung disease. There may be superimposed acute interst itial infiltrates versus progression from 10/07/2024. [facility], Workstation: [facility], 10/09/2024 3:56 PM
[2024-10-09 16:07] VITALS: PULSE 64
== END 2024-10-09 17:25 | disposition home or self-care (01) ==
LOC: EC 14:09
DX: J20.9 Acute bronchitis, unspecified (principal); J84.10 Pulmonary fibrosis, unspecified; J98.4 Other disorders of lung; Z11.52 Encounter for screening for COVID-19; Z87.891 Personal history of nicotine dependence; Z88.1 Allergy status to other antibiotic agents; Z88.8 Allergy status to other drugs, medicaments and biological substances
CPT/HCPCS: 36415; 71046; 80053; 83605; 83735; 83880; 84484; 85025; 85610; 85730; 93005; 94640; 99285